=== PATIENT | male | born 1945 | race Caucasian/White ===

== ENCOUNTER → 2017-11-18 08:21 | Outpatient (CLI) | payer MEDICARE, OTHER, SELFPAY ==
[2017-11-18 09:00] LABS: Add Manual Diff / Slide Review NO; Eosinophils Percent Auto 3.9 % (2-4); Hematocrit 41.1 % (41-53); Hemoglobin 13.9 g/dL (13.5-17.5); Mean Corpuscular HGB Conc 33.8 % (30-36); Mean Corpuscular Hemoglobin 31.7 PG (26-34); Mean Corpuscular Volume 93.9 fL (80-100); Neutrophils Absolute Auto 2200 /uL (3000-5900); Neutrophils Percent Auto 58.1 % (50-75); Platelet Count 196 X10^3/uL (150-400); Red Blood Cell Count 4.37 X10^6/uL (4.5-5.9); Red Cell Distribution Width 13.6 % (11.6-14.8); White Blood Cell Count 3.8 X10^3/uL (4.5-11.0)
[2017-11-18 10:07] LABS: Creatinine Urine Random 128.8 mg/dL
[2017-11-18 10:12] LABS: Microalbumi Creatinin Ratio Ur 20.1 ug/mg CR (<30); Microalbumin Urine Random 2.6 mg/dL (0-1.6)
[2017-11-18 11:43] LABS: HEMOLYSIS < 15 (0-50)
[2017-11-18 11:48] LABS: Alanine Aminotransferase 31 IU/L (21-72); Albumin 4.4 g/dL (3.5-5.0); Albumin Globulin Ratio 1.5 (1.0-2.8); Alkaline Phosphatase 51 U/L (38-126); Aspartate Aminotransferase 34 IU/L (17-59); BUN Creatinine Ratio 23.8 (6-22); Bilirubin Total 0.8 mg/dL (0.2-1.3); Blood Urea Nitrogen 19 mg/dL (9-20); Calcium 9.3 mg/dL (8.4-10.2); Carbon Dioxide 28 mmol/L (22-32); Chloride 99 mmol/L (98-107); Estimated Glomerular Filt Rate > 60.0 mL/min (>60); Globulin 2.9 g/dL (1.7-4.1); Glucose 98 mg/dL (80-110); Potassium 4.2 mmol/L (3.4-5.1); Sodium 137 mmol/L (137-145); Total Protein 7.3 g/dL (6.3-8.2)
[2017-11-18 12:08] LABS: Cholesterol 239 mg/dL (140-199); HDL Cholesterol 56 mg/dL (40-60); LDL Cholesterol Calculated 165 mg/dL (<100); Triglycerides 89 mg/dL (35-150)
[2017-11-18 12:11] LABS: High Sensitivity CRP - Cardiac 0.2 mg/L (1.0-3.0)
[2017-11-18 12:18] LABS: Thyroid Stimulating Hormone 1.63 uIU/mL (0.47-4.68)
[2017-11-18 12:54] LABS: Free T4, Direct Thyroxine 1.02 ng/dL (0.78-2.19)
[2017-11-18 14:33] LABS: Prostate Specific Antigen Scrn 2.33 ng/mL (0.1-4.0)
[2017-11-21 15:04] LABS: Insulin Level Total 6.1 uIU/mL (2.0-19.6)
[2017-11-21 15:11] LABS: Thyroid Peroxidase Antibodies < 1 IU/mL (< 9)
[2017-11-22 19:41] LABS: Testosterone, Free 0.97 ng/dL
== END ==
PROVIDERS: PCP Naturopath; Visit Provider Naturopath
DX: E29.1 Testicular hypofunction (principal); L40.8 Other psoriasis; D72.818 Other decreased white blood cell count; R73.01 Impaired fasting glucose; I10 Essential (primary) hypertension; F33.2 Major depressive disorder, recurrent severe without psychotic features; M25.551 Pain in right hip; Z87.891 Personal history of nicotine dependence; Z12.5 Encounter for screening for malignant neoplasm of prostate
CPT/HCPCS: 36415; 80053; 80061; 82043; 82570; 83525; 84402; 84439; 84443; 85025; 86140; 86376; G0103

== ENCOUNTER → 2019-03-01 07:58 | Outpatient (CLI) | payer MEDICARE, OTHER, SELFPAY ==
[2019-03-01 09:10] LABS: B Type Natriuretic Peptide 158 (<100)
[2019-03-01 09:28] LABS: Prostate Specific Antigen 2.41 ng/mL (0.10-4.00)
[2019-03-01 09:37] LABS: Vitamin D 25 Hydroxy (D3) 64.4 ng/mL (30.0-100.0)
[2019-03-01 13:49] LABS: Add Manual Diff / Slide Review NO; Basophils Absolute Auto 0 /uL (0-100); Basophils Percent Auto 0.6 % (0-2); Eosinophils Absolute Auto 100 /uL (0-450); Eosinophils Percent Auto 2.8 % (2-4); Hematocrit 40.4 % (41-53); Hemoglobin 13.8 g/dL (13.5-17.5); Lymphocytes Absolute Auto 1500 /uL (1100-4500); Lymphocytes Percent Auto 35.4 % (25-40); Mean Corpuscular HGB Conc 34.1 % (30-36); Mean Corpuscular Hemoglobin 32.1 PG (26-34); Monocytes Absolute Auto 400 /uL (0-900); Monocytes Percent Auto 10.4 % (3-14); Neutrophils Absolute Auto 2200 /uL (1500-7000); Neutrophils Percent Auto 50.8 % (50-75); Platelet Count 210 X10^3/uL (150-400); Red Cell Distribution Width 13.8 % (11.6-14.8); White Blood Cell Count 4.3 X10^3/uL (4.5-11.0)
[2019-03-01 14:25] LABS: Ferritin 66.1 ng/mL (17.9-464)
[2019-03-05 15:01] LABS: Insulin Level Total 5.6 uIU/mL (2.0-19.6)
== END ==
PROVIDERS: PCP Naturopath; Visit Provider Naturopath
DX: I10 Essential (primary) hypertension (principal); R73.01 Impaired fasting glucose; L40.9 Psoriasis, unspecified
CPT/HCPCS: 36415; 82306; 82728; 83525; 83880; 84153; 85025

== ENCOUNTER → 2019-06-12 08:28 | Outpatient (CLI) | payer MEDICARE, OTHER, SELFPAY ==
[2019-06-14 03:10] LABS: COVID19 Sendout Not Detected (Not Detected)
== END ==
PROVIDERS: PCP Naturopath; Visit Provider Family Medicine
DX: Z03.818 Encounter for observation for suspected exposure to other biological agents ruled out (principal)
CPT/HCPCS: 87635

== ENCOUNTER → 2019-11-25 06:46 | Outpatient (CLI) | payer MEDICARE, OTHER, SELFPAY ==
[2019-11-25 08:08] LABS: Add Manual Diff / Slide Review NO; Basophils Absolute Auto 0 /uL (0-100); Basophils Percent Auto 0.5 % (0-2); Eosinophils Absolute Auto 100 /uL (0-450); Eosinophils Percent Auto 2.5 % (2-4); Hematocrit 38.8 % (41-53); Hemoglobin 13.1 g/dL (13.5-17.5); Lymphocytes Absolute Auto 1400 /uL (1100-4500); Lymphocytes Percent Auto 39.5 % (25-40); Mean Corpuscular HGB Conc 33.8 % (30-36); Mean Corpuscular Hemoglobin 32.2 PG (26-34); Mean Corpuscular Volume 95.1 fL (80-100); Monocytes Absolute Auto 400 /uL (0-900); Monocytes Percent Auto 11.1 % (3-14); Neutrophils Absolute Auto 1600 /uL (1500-7000); Neutrophils Percent Auto 46.4 % (50-75); Platelet Count 179 X10^3/uL (150-400); Red Blood Cell Count 4.08 X10^6/uL (4.5-5.9); Red Cell Distribution Width 14.6 % (11.6-14.8); White Blood Cell Count 3.5 X10^3/uL (4.5-11.0)
[2019-11-25 08:25] LABS: Alanine Aminotransferase 26 IU/L (<50); Albumin 4.1 g/dL (3.5-5.0); Albumin Globulin Ratio 1.4 (1.0-2.8); Alkaline Phosphatase 54 U/L (38-126); Aspartate Aminotransferase 29 IU/L (17-59); BUN Creatinine Ratio 18.6 (6-22); Bilirubin Total 0.8 mg/dL (0.2-1.3); Blood Urea Nitrogen 16 mg/dL (9-20); Calcium 9.1 mg/dL (8.4-10.2); Carbon Dioxide 32 mmol/L (22-32); Chloride 101 mmol/L (98-107); Cholesterol 209 mg/dL (140-199); Estimated Glomerular Filt Rate > 60.0 mL/min (>60); Globulin 2.9 g/dL (1.7-4.1); Glucose 97 mg/dL (80-110); HDL Cholesterol 54 mg/dL (40-60); HEMOLYSIS < 15 (0-50); LDL Cholesterol Calculated 138 mg/dL (<100); Potassium 3.9 mmol/L (3.4-5.1); Sodium 136 mmol/L (137-145); Triglycerides 84 mg/dL (35-150)
[2019-11-25 08:28] LABS: Hemoglobin A1C% w Est Avg Glu 5.5 % (4.0-6.0)
[2019-11-25 08:41] LABS: Vitamin D 25 Hydroxy (D3) 95.1 ng/mL (30.0-100.0)
== END ==
PROVIDERS: PCP Family Medicine; Referring Provider Family Medicine; Visit Provider Family Medicine
DX: Z13.1 Encounter for screening for diabetes mellitus (principal); E55.9 Vitamin D deficiency, unspecified; Z13.220 Encounter for screening for lipoid disorders; D50.9 Iron deficiency anemia, unspecified
CPT/HCPCS: 36415; 80053; 80061; 82306; 83036; 85025

== ENCOUNTER → 2019-12-10 09:07 | Outpatient (CLI) | payer MEDICARE, OTHER, SELFPAY ==
[2019-12-11 15:53] LABS: Fecal Immunochemical Test Negative (Negative)
== END ==
PROVIDERS: PCP Family Medicine; Referring Provider Family Medicine; Visit Provider Family Medicine
DX: D50.9 Iron deficiency anemia, unspecified (principal)
CPT/HCPCS: 82274

== ENCOUNTER → 2020-04-03 06:33 | Outpatient (CLI) | payer MEDICARE, OTHER, SELFPAY ==
[2020-04-03 07:32] LABS: Add Manual Diff / Slide Review NO; Basophils Absolute Auto 0 /uL (0-100); Basophils Percent Auto 0.8 % (0-2); Eosinophils Absolute Auto 100 /uL (0-450); Eosinophils Percent Auto 2.8 % (2-4); Hematocrit 40.4 % (41-53); Hemoglobin 13.4 g/dL (13.5-17.5); Lymphocytes Absolute Auto 1400 /uL (1100-4500); Lymphocytes Percent Auto 32.1 % (25-40); Mean Corpuscular HGB Conc 33.1 % (30-36); Mean Corpuscular Hemoglobin 31.4 PG (26-34); Mean Corpuscular Volume 94.7 fL (80-100); Monocytes Absolute Auto 500 /uL (0-900); Neutrophils Absolute Auto 2400 /uL (1500-7000); Neutrophils Percent Auto 52.3 % (50-75); Platelet Count 180 X10^3/uL (150-400); Red Blood Cell Count 4.27 X10^6/uL (4.5-5.9); Red Cell Distribution Width 13.7 % (11.6-14.8); White Blood Cell Count 4.5 X10^3/uL (4.5-11.0)
[2020-04-03 07:42] LABS: Cholesterol 247 mg/dL (140-199); HDL Cholesterol 62 mg/dL (40-60); LDL Cholesterol Calculated 165 mg/dL (<100); Triglycerides 100 mg/dL (35-150)
[2020-04-03 08:00] LABS: Vitamin D 25 Hydroxy (D3) 89.6 ng/mL (30.0-100.0)
== END ==
PROVIDERS: PCP Family Medicine; Referring Provider Family Medicine; Visit Provider Family Medicine
DX: E78.2 Mixed hyperlipidemia (principal); E55.9 Vitamin D deficiency, unspecified; D50.9 Iron deficiency anemia, unspecified
CPT/HCPCS: 36415; 80061; 82306; 85025

== ENCOUNTER → 2020-04-16 07:36 | Outpatient (CLI) | payer MEDICARE, OTHER, SELFPAY ==
[2020-04-16] MEDS: COVID-19 VACC, Ad26(JANSSEN)/PF 0.5 ML IM (07:50)
== END ==
PROVIDERS: PCP Family Medicine; Visit Provider Internal Medicine
DX: Z23 Encounter for immunization (principal)
CPT/HCPCS: 0031A; 91303

== ENCOUNTER → 2020-12-15 09:56 | Outpatient (CLI) | payer MEDICARE, OTHER, SELFPAY ==
[2020-12-15 10:54] LABS: Cholesterol 227 mg/dL (140-199); HDL Cholesterol 67 mg/dL (40-60); LDL Cholesterol Calculated 139 mg/dL (<100); Triglycerides 106 mg/dL (35-150)
[2020-12-15 11:21] LABS: Prostate Specific Antigen Scrn 3.13 ng/mL (0.1-4.0)
== END ==
PROVIDERS: PCP Family Medicine; Referring Provider Family Medicine; Visit Provider Family Medicine
DX: E78.2 Mixed hyperlipidemia (principal); Z12.5 Encounter for screening for malignant neoplasm of prostate; E55.9 Vitamin D deficiency, unspecified
CPT/HCPCS: 36415; 80061; G0103

== ENCOUNTER → 2021-09-14 10:07 | Outpatient (CLI) | payer MEDICARE, OTHER, SELFPAY ==
[2021-09-14 10:48] LABS: Add Manual Diff / Slide Review NO; Basophils Absolute Auto 0 /uL (0-100); Basophils Percent Auto 0.8 % (0-2); Eosinophils Absolute Auto 100 /uL (0-450); Eosinophils Percent Auto 1.6 % (2-4); Hematocrit 32.5 % (41-53); Hemoglobin 11.3 g/dL (13.5-17.5); Lymphocytes Absolute Auto 1000 /uL (1100-4500); Lymphocytes Percent Auto 21.3 % (25-40); Mean Corpuscular HGB Conc 34.8 % (30-36); Mean Corpuscular Hemoglobin 32.5 PG (26-34); Mean Corpuscular Volume 93.3 fL (80-100); Monocytes Absolute Auto 500 /uL (0-900); Neutrophils Absolute Auto 3200 /uL (1500-7000); Neutrophils Percent Auto 66.3 % (50-75); Platelet Count 210 X10^3/uL (150-400); Red Blood Cell Count 3.49 X10^6/uL (4.5-5.9); Red Cell Distribution Width 14.3 % (11.6-14.8); White Blood Cell Count 4.8 X10^3/uL (4.5-11.0)
[2021-09-14 11:05] LABS: Alanine Aminotransferase 27 IU/L (<50); Albumin 4.1 g/dL (3.5-5.0); Albumin Globulin Ratio 1.4 (1.0-2.8); Alkaline Phosphatase 55 U/L (38-126); Aspartate Aminotransferase 27 IU/L (17-59); BUN Creatinine Ratio 15.1 (6-22); Bilirubin Total 0.6 mg/dL (0.2-1.3); Blood Urea Nitrogen 14 mg/dL (9-20); Calcium 8.8 mg/dL (8.4-10.2); Carbon Dioxide 34 mmol/L (22-32); Chloride 102 mmol/L (98-107); Estimated Glomerular Filt Rate > 60 mL/min (>60); Globulin 2.9 g/dL (1.7-4.1); Glucose 112 mg/dL (80-110); HEMOLYSIS < 15 (0-50); Lipase 197 U/L (23-300); Potassium 4.4 mmol/L (3.4-5.1); Sodium 136 mmol/L (137-145)
[2021-09-15 15:36] LABS: Interpretation Negative (Negative)
== END ==
PROVIDERS: PCP Family Medicine; Referring Provider Nurse Practitioner Critical Care Medicine; Visit Provider Nurse Practitioner Critical Care Medicine
DX: R10.13 Epigastric pain (principal)
CPT/HCPCS: 36415; 80053; 83013; 83690; 85025

== ENCOUNTER → 2021-10-06 09:05 | Outpatient (CLI) | payer MEDICARE, OTHER, SELFPAY ==
[2021-10-06 11:31] LABS: COVID19 -Nasal RAPID Negative (Negative)
== END ==
PROVIDERS: PCP Family Medicine; Visit Provider Surgery
DX: Z01.812 Encounter for preprocedural laboratory examination (principal); Z20.822 Contact with and (suspected) exposure to COVID-19
CPT/HCPCS: 87635; C9803

== ENCOUNTER 2021-10-07 11:45 | Day surgery (SDC) | payer MEDICARE, OTHER, SELFPAY ==
--- NOTE | 2021-10-07 | PATH_ITS ---
[facility] Accession Number: [id number] . 01 Material submitted: . gastrointestinal site - STOMACH BIOPSY . 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 Present in a background of ulcer. Equivocal for HER2 overexpression by immunohistochemistry. Please see comment. MRV 10/15/2021 1638 Local . 01 Comment: HER2 FISH will be performed and the results reported as an addendum. As part of routine quality system manager, Dr. White also reviewed this case and agrees with the diagnosis. Dr. Cheung gave preliminary results to Luma in Dr. Vasques's office on 10/14/2021. . 01 Electronically signed: . Leslie Cheung MD, Pathologist NPI- [id number] . 01 Gross description: . STOMACH BIOPSY: Received in formalin are multiple fragment(s) of albrecht, soft tissue measuring 1.2 x 0.5 x 0.1 cm in aggregate submitted entirely in 1 cassette(s) /CPE 10/08/2021 0822 Local . 01 Microscopic: . Immunohistochemical stains were performed to characterize cells of interest. All control stains showed appropriate reactivity. . RESULTS: MARKEL: Positive. CD68: Negative. HER2 (4B5): Equivocal (Score 2+). . COMMENT: Testing performed on Block Number: A1 The criteria used is based on the ToGA Trial 6 for Scoring HER2 Expression by Immunohistochemistry (IHC) in Gastric and Esophagogastric Junction Adenocarcinoma. . *This test was developed and its performance characteristics determined by [employer]. It has not been cleared or approved by the U.[place]. Food and Drug Administration. The FDA has determined that such clearance or approval is not necessary. This test is used for clinical purposes. It should not be regarded as investigational or for research. . 01 Pathologist provided ICD-10: K30, D64.9, C16.9 . 01 CPT . 770659, U60169, U31624, 197343 Specimen Comment: A courtesy copy of this report has been sent to [phone] Performed at: 01 [facility] [address] [place] [address], [place], [place] [id number] MD Brice Buck MD Phone: [phone]
[2021-10-07 12:07] VITALS: BP 138/85; PULSE 62; RESP 16; TEMP 36.9; O2SAT 100; BMI 24.5
[2021-10-07] MEDS: LACTATED RINGERS 1,000 ML 42 ML IV (12:29)
--- NOTE | 2021-10-07 13:26 | PM.PREOP ---
Pre-operative Note COVID-19 COVID-19 status: Negative Result date/Date tested (Pos, Neg/Pending): 10/06/21 Interval Note History & Physical reviewed/Exam performed by Physician: Yes Changes to H&P: No ASA Class (for procedural sedation): II
[2021-10-07] MEDS: LIDOCAINE 4% SOLN 50 ML 20 ML TOP (14:07)
[2021-10-07] MEDS: MIDAZOLAM 5 MG/5 ML VIAL 6 MG IV (14:24)
[2021-10-07] MEDS: fentaNYL 100 MCG/2 ML INJ 150 MCG IV (14:24)
--- NOTE | 2021-10-07 14:44 | PM.OP.EC ---
Operative Date/Time/Diagnoses Date of procedure: 10/07/21 Time of procedure: 14:44 Pre-op diagnosis: Dyspepsia and anemia Post-op diagnosis: same Procedure & Clinicians Study performed: EGD and colonoscopy Same procedure as scheduled: Yes Surgeon: Carlitos Vasques Procedure Notes Procedure in detail: Surgeon: Carlitos Vasques MD Procedure in detail: A timeout was performed. A bite blocked was placed and monitors were attached to the patient. The patient was positioned in a left lateral decubitus position. Sedation was administered with Versed and fentanyl. Once the patient was sedated the endoscope was inserted through the bite block and passed through the esophagus and stomach and into the duodenum. The duodenum was normal. The stomach contained significant quantities of old blood as well as bright red blood. The majority of stomach was circumferentially thickened and inflamed from the fundus to the incisura. There was no obvious ulcer. Multiple random biopsies were taken from the abnormal appearing gastric mucosa. The endoscope was retroflexed and no hiatal hernia was noted. The endoscope was straightned and withdrawn into the esophagus. Findings: Thickened inflamed and bleeding gastric mucosa involving the majority of the body of the stomach Next we repositioned the patient for a colonoscopy. A digital rectal exam was performed and was normal. The colonoscope was inserted and advanced to the cecum. There was significant black old blood throughout the colon. The appendiceal orifice was difficult to visualize due to the thick layer of old blood but the terminal ileum was able to be intubated and more old blood was visualized. A photograph was taken. The scope was then slowly withdrawn over greater than 6 minutes and no lesions were noted although the visualization was suboptimal due to the thick layer of old blood throughout colon. The scope was retroflexed in the rectum and no abnormality was noted other than internal hemorrhoids Findings: No abnormalities but visualization was impaired by old blood throughout the colon EBL: 15 mL Scope withdrawal time: 6 Sedation minutes: 34 Post-procedure Disposition: PACU
[2021-10-07 14:46] VITALS: BP 121/77; PULSE 69; RESP 15; TEMP 36.6; O2SAT 99
[2021-10-07 14:51] VITALS: BP 125/73; PULSE 66; RESP 10; O2SAT 99
[2021-10-07 14:56] VITALS: BP 129/76; PULSE 65; RESP 11; O2SAT 98
[2021-10-07 15:37] VITALS: BP 127/70; PULSE 61; RESP 14; TEMP 36.6; O2SAT 99
--- NOTE | 2021-10-07 15:39 | SUR.PHASEII ---
Lab drawn, awaiting Dr. Vasques. updated.
[2021-10-07 16:13] LABS: Add Manual Diff / Slide Review NO; Basophils Absolute Auto 0 /uL (0-100); Basophils Percent Auto 1.2 % (0-2); Eosinophils Absolute Auto 100 /uL (0-450); Eosinophils Percent Auto 1.8 % (2-4); Hematocrit 26.1 % (41-53); Hemoglobin 8.8 g/dL (13.5-17.5); Lymphocytes Absolute Auto 1100 /uL (1100-4500); Lymphocytes Percent Auto 26.3 % (25-40); Mean Corpuscular HGB Conc 33.7 % (30-36); Mean Corpuscular Hemoglobin 31.6 PG (26-34); Monocytes Absolute Auto 500 /uL (0-900); Monocytes Percent Auto 11.7 % (3-14); Neutrophils Absolute Auto 2400 /uL (1500-7000); Platelet Count 269 X10^3/uL (150-400); Red Blood Cell Count 2.78 X10^6/uL (4.5-5.9); Red Cell Distribution Width 13.9 % (11.6-14.8); White Blood Cell Count 4.1 X10^3/uL (4.5-11.0)
--- NOTE | 2021-10-07 16:53 | SUR.PHASEII ---
Lab reported to Dr. Vasques. Pt to be discharged.
[2021-10-07 17:05] VITALS: BP 147/79; PULSE 66; RESP 16; TEMP 36.7; O2SAT 99
--- NOTE | 2021-10-07 17:21 | SUR.PHASEII ---
Pt left unit in stable condition, d/c instruction discussed at car with present. Both voiced an understanding.
== END 2021-10-07 17:18 | disposition home or self-care (01) ==
PROVIDERS: PCP Family Medicine; Referring Provider Surgery; Visit Provider Surgery
PROC: 0DJ08ZZ Inspection of Upper Intestinal Tract, Via Natural or Artificial Opening Endoscopic (ICD-10-PCS; CPT 43235; principal; 2021-10-07 13:00)
PROC: 0DJD8ZZ Inspection of Lower Intestinal Tract, Via Natural or Artificial Opening Endoscopic (ICD-10-PCS; CPT 45378; 2021-10-07 13:00)
DX: C16.9 Malignant neoplasm of stomach, unspecified; D50.9 Iron deficiency anemia, unspecified; Z87.891 Personal history of nicotine dependence
CPT/HCPCS: 43239; 45378; 36415; 85025; 99152; 99153; J2250; J3010

== ENCOUNTER → 2021-10-14 12:48 | Outpatient (CLI) | payer MEDICARE, OTHER, SELFPAY ==
[2021-10-14 13:14] LABS: Add Manual Diff / Slide Review NO; Basophils Absolute Auto 100 /uL (0-100); Basophils Percent Auto 0.7 % (0-2); Eosinophils Absolute Auto 100 /uL (0-450); Eosinophils Percent Auto 1.6 % (2-4); Hematocrit 27.5 % (41-53); Hemoglobin 9.3 g/dL (13.5-17.5); Lymphocytes Absolute Auto 1200 /uL (1100-4500); Lymphocytes Percent Auto 16.6 % (25-40); Mean Corpuscular HGB Conc 33.9 % (30-36); Mean Corpuscular Hemoglobin 31.7 PG (26-34); Mean Corpuscular Volume 93.6 fL (80-100); Monocytes Absolute Auto 900 /uL (0-900); Monocytes Percent Auto 11.8 % (3-14); Neutrophils Absolute Auto 5000 /uL (1500-7000); Neutrophils Percent Auto 69.3 % (50-75); Platelet Count 306 X10^3/uL (150-400); Red Blood Cell Count 2.94 X10^6/uL (4.5-5.9); Red Cell Distribution Width 14.5 % (11.6-14.8); White Blood Cell Count 7.3 X10^3/uL (4.5-11.0)
[2021-10-14 13:30] LABS: Cholesterol 173 mg/dL (140-199); HDL Cholesterol 45 mg/dL (40-60); LDL Cholesterol Calculated 105 mg/dL (<100); Triglycerides 113 mg/dL (35-150)
== END ==
PROVIDERS: PCP Family Medicine; Referring Provider Surgery; Visit Provider Surgery
DX: D50.9 Iron deficiency anemia, unspecified (principal); E78.2 Mixed hyperlipidemia
CPT/HCPCS: 36415; 80061; 85025

== ENCOUNTER → 2021-10-19 11:07 | Outpatient (CLI) | payer MEDICARE, OTHER, SELFPAY ==
[2021-10-19 11:58] LABS: Add Manual Diff / Slide Review NO; Basophils Absolute Auto 100 /uL (0-100); Eosinophils Absolute Auto 100 /uL (0-450); Eosinophils Percent Auto 2.4 % (2-4); Hematocrit 26.2 % (41-53); Hemoglobin 8.8 g/dL (13.5-17.5); Lymphocytes Absolute Auto 800 /uL (1100-4500); Mean Corpuscular HGB Conc 33.5 % (30-36); Mean Corpuscular Hemoglobin 31.3 PG (26-34); Mean Corpuscular Volume 93.5 fL (80-100); Monocytes Absolute Auto 700 /uL (0-900); Monocytes Percent Auto 13.3 % (3-14); Neutrophils Absolute Auto 3700 /uL (1500-7000); Neutrophils Percent Auto 68.3 % (50-75); Platelet Count 267 X10^3/uL (150-400); Red Blood Cell Count 2.81 X10^6/uL (4.5-5.9); Red Cell Distribution Width 14.9 % (11.6-14.8); White Blood Cell Count 5.5 X10^3/uL (4.5-11.0)
[2021-10-19 12:33] LABS: Alanine Aminotransferase 193 IU/L (<50); Albumin 3.7 g/dL (3.5-5.0); Albumin Globulin Ratio 1.3 (1.0-2.8); Alkaline Phosphatase 541 U/L (38-126); Aspartate Aminotransferase 98 IU/L (17-59); BUN Creatinine Ratio 19.8 (6-22); Bilirubin Total 0.5 mg/dL (0.2-1.3); Blood Urea Nitrogen 18 mg/dL (9-20); Carbon Dioxide 28 mmol/L (22-32); Chloride 98 mmol/L (98-107); Estimated Glomerular Filt Rate > 60 mL/min (>60); Globulin 2.8 g/dL (1.7-4.1); Glucose 135 mg/dL (80-110); HEMOLYSIS < 15 (0-50); Sodium 138 mmol/L (137-145); Total Protein 6.5 g/dL (6.3-8.2)
[2021-10-19 12:57] LABS: Cancer Antigen 125 30.9 U/mL; Carcinoembryonic Antigen 1.2 ng/mL (0.1-3.0)
[2021-10-20 06:18] LABS: Cancer (Carbohydrate) Ag 19-9 69 U/mL (0-35)
== END ==
PROVIDERS: PCP Family Medicine; Referring Provider Surgery; Visit Provider Surgery
DX: C16.9 Malignant neoplasm of stomach, unspecified (principal)
CPT/HCPCS: 36415; 80053; 82378; 85025; 86301; 86304

== ENCOUNTER → 2021-10-21 10:48 | Outpatient (CLI) | payer MEDICARE, OTHER, SELFPAY ==
--- NOTE | 2021-10-21 10:49 | DI.CT.S_ITS ---
PROCEDURE: CT CHEST ABD PEL W CON INDICATIONS: Signet ring carcinoma of the stomach TECHNIQUE: After the administration of oral and intravenous contrast, axial sections acquired from the supraclavicular neck to the pubic symphysis. Coronal and sagittal reformats were performed. For radiation dose reduction, the following was used: automated exposure control, adjustment of mA and/or kV according to patient size. COMPARISON:None. FINDINGS: Image quality: Excellent. CHEST: Lower Neck: No enlarged lymph nodes. Thyroid: Within normal limits Axillae: No enlarged lymph nodes. Chest Wall: Unremarkable. Lungs and Airways: Trace emphysema. Scattered scarring. Left greater right lower lobe ground-glass opacities with areas of cavitation . There are also small solitary micro nodules, for example at the right apex image 6/43. Calcified granulomas are also present. Pleura: No pneumothorax or pleural effusions. Heart: Heart size is within normal limits. Thoracic Vessels: No aneurysm Mediastinum and Arlene: No adenopathy by size criteria. Esophagus: Filled with ingested contrast and dilated. ABDOMEN: Liver: Unremarkable. Gallbladder: Unremarkable Biliary ducts: Marked biliary ductal dilation with likely obstruction near the ampulla . There is also an adjacent large duodenal diverticulum. Pancreas: The pancreatic duct is not dilated, however there is peripancreatic fat stranding. Spleen: Unremarkable. Adrenal Glands: Unremarkable. Kidneys and Ureters: Unremarkable. Stomach and Bowel: Diffuse gastric wall thickening with narrowing at the antrum. There is dilation of the proximal duodenum with stasis of material. Wall thickening of the horizontal duodenum with normal caliber jejunum. Colonic diverticula . There is serosal disease and implants suspected along the transverse mesocolon and hepatic flexure of the colon. Peritoneum: Small amount of pelvic free fluid omental studding, particularly in the left upper quadrant greater omentum. Suspected serosal disease along the colonic surface. There is also suspected studding along the lesser sac and lesser omentum. Ventral Wall: No hernia. Abdominal Nodes: No retroperitoneal adenopathy by size criteria. Peritoneal disease as above. Vessels: The portal vein is patent, but displaced and narrowed near the portal confluence. [id number] atherosclerotic calcifications. No aneurysm. PELVIS: Pelvic Organs: Heterogeneous prostate with calcifications not well evaluated. Bladder: Left bladder wall diverticulum and moderate diffuse wall thickening, indeterminate on CT. Pelvic Nodes: No enlarged lymph nodes. Miscellaneous: Left fat containing inguinal hernia Bones: No acute or suspicious osseous abnormality. IMPRESSION: CT findings suspicious for multifocal, diffuse infiltrating adenocarcinoma of the stomach and duodenum. There is evidence of early peritoneal dissemination. Cavitating lung nodules in a pattern that favors infection/inflammation, possibly related to aspiration of enteric contents from the dilated esophagus secondary to gastric outlet obstruction. Marked biliary dilation likely secondary to infiltrating ampullary obstruction. There is also an adjacent large duodenal diverticulum, perforation is considered less likely. Consider follow-up imaging for chest findings. PET-CT could also be obtained for more complete staging. Additional incidental findings above. Dictated by: Eduardo Meyer M.D. on 10/21/2021 at 14:16 Approved by: Eduardo Meyer M.D. on 10/21/2021 at 14:30
== END ==
PROVIDERS: PCP Family Medicine; Referring Provider Surgery; Visit Provider Surgery
DX: C16.9 Malignant neoplasm of stomach, unspecified (principal); R91.8 Other nonspecific abnormal finding of lung field; K57.10 Diverticulosis of small intestine without perforation or abscess without bleeding
CPT/HCPCS: 71260; 74177; Q9967

== ENCOUNTER 2021-10-27 18:46 | Emergency (ER) | payer MEDICARE, OTHER, SELFPAY ==
[2021-10-27] VITALS (11 sets, daily range): BP systolic 90–113; BP diastolic 50–62; PULSE 85–122; RESP 12–22; TEMP 37.2–39.3; O2SAT 95–98; BMI 22.3
--- NOTE | 2021-10-27 19:14 | ED_ITS ---
HPI - GI Bleed <Mami Medina DO - Last Filed: 10/29/21 01:52> General Chief complaint: GI Bleed Stated complaint: states dehydrated Time Seen by Provider: 10/27/21 19:11 Source: patient Mode of arrival: Wheelchair History of Present Illness HPI Narrative: Patient is a 76-year-old male history of iron deficiency anemia recent diagnosis of signet ring carcinoma ongoing upper GI bleeding. Although he just started vomiting some coffee-ground like emesis a few days ago. Previously he was only belching. He had an endoscopy 3 weeks ago with a diagnosis was made he had a PET scan today. He presents today with coffee-ground like emesis along with fever and chills. Found to be febrile today of 102. He has no abdominal pain, mild nausea no chest pain no shortness of breath no painful or frequent urination. No headache. He overall feels extremely fatigued and weak. Related Data Previous Rx's Medication Instructions Recorded omeprazole 20 mg tablet,delayed 20 mg PO DAILY #30 tabs 09/14/21 release Allergies Allergy/AdvReac Type Severity Reaction Status Date / Time No Known Drug Allergies Allergy Verified 10/27/21 18:49 Review of Systems <Mami Median DO - Last Filed: 10/29/21 01:52> Review of Systems Narrative: GENERAL: See HPI HEENT: Denies sinus pain, ear pain, sore throat, difficulty swallowing, neck pain RESPIRATORY: Denies dyspnea, cough, wheezing, hemoptysis, sputum. CARDIOVASCULAR: Denies chest pain, palpitations, orthopnea, edema GASTROINTESTINAL: See HPI : Denies dysuria, frequency, incontinence, hematuria, urinary retention, flank pain. MUSCULOSKELETAL: Denies weakness, joint pain, or bony pain SKIN: No rash, no erythema, no pruritus NEUROLOGIC: Denies weakness, dizziness, headache, numbness, change in speech, confusion PSYCHIATRIC: No concerning psychosocial issues. 12 point review of systems is negative except for those stated above and HPI Patient History <Mami Medina DO - Last Filed: 10/29/21 01:52> Medical History (Updated 10/29/21 @ 00:40 by Mami Medina DO) Chicken pox Chronic back pain Depression Eczema Hearing loss Hyperlipidemia Iron (Fe) deficiency anemia Low testosterone Measles Mumps Shoulder pain Vitamin D deficiency Surgical History Anesthesia History of cataract removal with insertion of prosthetic lens (~09/2019) Undescended right testicle (~1959) [place] teeth extracted (~1979) Family History Father Hypertension Grandfather History of heart disease Grandmother Flu Social History household members: spouse Smoking Status: Former smoker alcohol intake: never Smoking Status: Former smoker Substance Use Type: does not use Exam <Mami Medina DO - Last Filed: 10/29/21 01:52> Initial Vital Signs Initial Vital Signs: Vital Signs Temperature 102.8 F H 10/27/21 18:49 Pulse Rate 122 H 10/27/21 18:49 Respiratory Rate 15 10/27/21 18:49 Blood Pressure 108/62 10/27/21 18:49 Pulse Oximetry 96 10/27/21 18:49 Oxygen Delivery Method 10/27/21 18:49 GENERAL: Alert very pleasant 76-year-old male slightly pale thin and in no acute distress. HEENT: Head atraumatic,EOMI, pupils reactive, face symmetric, moist mucous membranes CARDIOVASCULAR: Regular rate and rhythm without murmurs, rubs or gallops. RESPIRATORY: Breath sounds equal bilaterally, no wheezes rales or rhonchi. ABDOMEN: Soft, nontender. Normoactive bowel sounds all 4 quadrants. No guarding or rebound. EXTREMITIES: Normal range of motion, no clubbing or edema. Neurovascularly intact NEUROLOGICAL: Alert and oriented x4. SKIN: Warm, dry, no laceration, no petechiae, no rashes or lesions. <Dane Finn MD - Last Filed: 10/29/21 07:02> Initial Vital Signs Initial Vital Signs: Vital Signs Temperature 102.8 F H 10/27/21 18:49 Pulse Rate 122 H 10/27/21 18:49 Respiratory Rate 15 10/27/21 18:49 Blood Pressure 108/62 10/27/21 18:49 Pulse Oximetry 96 10/27/21 18:49 Oxygen Delivery Method 10/27/21 18:49 Course <DO Fer Narayan Last Filed: 10/29/21 01:52> Orders Ordered: ED Orders 09/23/22 05:14 CBC Auto Diff [Complete Blood Count AUTO DIFF] Stat CMP [Comprehensive Metabolic Panel] Stat Discontinued Medications Famotidine (Famotidine 20 Mg/2 Ml Vial) 20 mg IV NOW [facility] Last Admin: 10/28/21 12:49 Dose: 20 mg Documented By: YOHAN Sodium Chloride (Normal Saline 0.9%) 1,000 mls @ 1,000 mls/hr IV BOLUS ONE Stop: 10/27/21 20:24 Last Infusion: 10/27/21 20:30 Dose: 0 mls/hr Documented By: Admin: 10/27/21 19:33 Dose: 1,000 mls/hr Documented By: NOEMY Piperacillin Sod/Tazobactam (Sod 4.5 gm/ Sodium Chloride) 100 mls @ 200 mls/hr IV NOW ONE Stop: 10/27/21 20:00 Last Infusion: 10/27/21 20:40 Dose: 0 mls/hr Documented By: Admin: 10/27/21 20:10 Dose: 200 mls/hr Documented By: DELMA Sodium Chloride (Normal Saline 0.9%) 2,177.25 mls @ 725.75 mls/hr 30 ml/kg inf use over 3 hr (2177.25 ml) IV NOW ONE Stop: 10/27/21 23:38 Last Infusion: 10/27/21 23:13 Dose: 0 mls/hr Documented By: Admin: 10/27/21 20:44 Dose: 725.75 mls/hr Documented By: DELMA Levofloxacin (Levaquin) 500 mg in 100 mls @ 100 mls/hr IV Q24H [facility] Last Infusion: 10/28/21 10:43 Dose: 0 mls/hr Documented By: Admin: 10/28/21 09:39 Dose: 100 mls/hr Documented By: RB Levofloxacin (Levaquin) 500 mg in 100 mls @ 100 mls/hr IV Q24H [facility] Dextrose/Sodium Chloride (Dextrose 5%-0.9% Ns) 1,000 mls @ 84 mls/hr IV CONT [facility] Last Admin: 10/28/21 17:38 Dose: 84 mls/hr Documented By: ABELINO Ondansetron HCl (Ondansetron 4 Mg/2 Ml Inj) 4 mg IV NOW ONE Stop: 10/27/21 20:40 Last Admin: 10/27/21 20:42 Dose: 4 mg Documented By: DELMA Pantoprazole Sodium (Pantoprazole 40 Mg Vial) 40 mg IV NOW ONE Stop: 10/27/21 19:26 Last Admin: 10/27/21 19:34 Dose: 40 mg Documented By: NOEMY Vital Signs Vital signs: Vital Signs - 8 hr 10/29/21 01:37 Temperature 98.5 F Pulse Rate 70 Respiratory Rate 16 Blood Pressure 159/80 H Pulse Oximetry 95 Oxygen Delivery Method Room Air <Dane Finn MD - Last Filed: 10/29/21 07:02> Course Course Narrative: October 28, 2021 at 7:00 a.[address].. Sign out from Dr Medina, patient has been accepted to [facility] however awaiting for bed assignment. Patient may need embolization at their facility. Patient has fever unknown origin at this time. Imaging has been reassuring patient did improve with blood transfusion with blood pressure. 8:29 a.m.. Blood cultures returned and positive for Klebsiella pneumonia. Spoke with Artemio, pharmacy, at this time appropriate for [facility]. EKG reviewed. No QT prolongation October 28, 2021 at 6:00 p.m.. Sign out back to Dr Medina, still awaiting bed assignment with [facility] for continuity of care, Zee gray may have bed available after 7:00 p.m. Orders Ordered: ED Orders 10/29/21 05:14 CBC Auto Diff [Complete Blood Count AUTO DIFF] Stat CMP [Comprehensive Metabolic Panel] Stat Discontinued Medications Famotidine (Famotidine 20 Mg/2 Ml Vial) 20 mg IV NOW [facility] Last Admin: 10/28/21 12:49 Dose: 20 mg Documented By: YOHAN Sodium Chloride (Normal Saline 0.9%) 1,000 mls @ 1,000 mls/hr IV BOLUS ONE Stop: 10/27/21 20:24 Last Infusion: 10/27/21 20:30 Dose: 0 mls/hr Documented By: Admin: 10/27/21 19:33 Dose: 1,000 mls/hr Documented By: NOEMY Piperacillin Sod/Tazobactam (Sod 4.5 gm/ Sodium Chloride) 100 mls @ 200 mls/hr IV NOW ONE Stop: 10/27/21 20:00 Last Infusion: 10/27/21 20:40 Dose: 0 mls/hr Documented By: Admin: 10/27/21 20:10 Dose: 200 mls/hr Documented By: OW Sodium Chloride (Normal Saline 0.9%) 2,177.25 mls @ 725.75 mls/hr 30 ml/kg infuse over 3 hr (2177.25 ml) IV NOW ONE Stop: 10/27/21 23:38 Last Infusion: 10/27/21 23:13 Dose: 0 mls/hr Documented By: Admin: 10/27/21 20:44 Dose: 725.75 mls/hr Documented By: OW Levofloxacin (Levaquin) 500 mg in 100 mls @ 100 mls/hr IV Q24H [facility] Last Infusion: 10/28/21 10:43 Dose: 0 mls/hr Documented By: Admin: 10/28/21 09:39 Dose: 100 mls/hr Documented By: RB Levofloxacin (Levaquin) 500 mg in 100 mls @ 100 mls/hr IV Q24H [facility] Dextrose/Sodium Chloride (Dextrose 5%-0.9% Ns) 1,000 mls @ 84 mls/hr IV CONT [facility] Last Admin: 10/28/21 17:38 Dose: 84 mls/hr Documented By: ABELINO Ondansetron HCl (Ondansetron 4 Mg/2 Ml Inj) 4 mg IV NOW ONE Stop: 10/27/21 20:40 Last Admin: 10/27/21 20:42 Dose: 4 mg Documented By: DELMA Pantoprazole Sodium (Pantoprazole 40 Mg Vial) 40 mg IV NOW ONE Stop: 10/27/21 19:26 Last Admin: 10/27/21 19:34 Dose: 40 mg Documented By: NOEMY Reevaluation(s) Reevaluation #1: Spoke with patient and . They understand and do agree for continued waiting for bed available at [facility]. Updated results of blood culture. Possible respiratory or urine source of Klebsiella. Time: 17:11 Consultations Consultation #1: Spoke with general surgeon, Dr. Alejo here, keep patient NPO. Agrees with D5 normal saline maintenance at 75-100 mL/hour., October 28, 2021 at 5:36 p.m. Time: 17:36 Vital Signs Vital signs: Vital Signs - 8 hr 10/29/21 01:37 Temperature 98.5 F Pulse Rate 70 Respiratory Rate 16 Blood Pressure 159/80 H Pulse Oximetry 95 Oxygen Delivery Method Room Air MDM - GI Bleed <Mami Carol, DO - Last Filed: 10/29/21 01:52> Lab Data Result diagrams: 10/28/21 20:03 10/28/21 07:38 Labs: Lab Results 10/27/21 10/27/21 10/27/21 Range/Units 18:59 18:59 18:59 WBC 10.1 (4.5-11.0) X10^3/uL RBC 2.62 L (4.5-5.9) X10^6/uL Hgb 8.2 L (13.5-17.5) g/dL Hct 23.8 L (41-53) % MCV 90.9 (80-100) fL MCH 31.5 (26-34) PG MCHC 34.7 (30-36) % RDW 14.6 (11.6-14.8) % Plt Count 325 (150-400) X10^3/uL Neut % (Auto) 86.2 H (50-75) % Lymph % (Auto) 3.3 L (25-40) % Stark % (Auto) 9.3 (3-14) % Eos % (Auto) 0.2 L (2-4) % Baso % (Auto) 1.0 (0-2) % Neut # (Auto) 8700 H (2117-3255) /uL Lymph # (Auto) 300 L (1674-8612) /uL Stark # (Auto) 900 (0-900) /uL Eos # (Auto) 0 (0-450) /uL Baso # (Auto) 100 (0-100) /uL PT 13.8 H (10.1-12.7) SECONDS INR 1.2 (0.9-1.3) APTT 27 (26-36) SECONDS Sodium 131 L (137-145) mmol/L Potassium 3.9 (3.4-5.1) mmol/L Chloride 94 L (98-107) mmol/L Carbon Dioxide 25 (22-32) mmol/L BUN 29 H (9-20) mg/dL Creatinine 1.03 (0.66-1.25) mg/dL Estimated GFR > 60 (>60) mL/min BUN/Creatinine Ratio 28.2 H (6-22) Glucose 139 H (80-110) mg/dL Lactate (0.7-2.1) mmol/L Calcium 9.0 (8.4-10.2) mg/dL Total Bilirubin 0.9 (0.2-1.3) mg/dL AST 91 H (17-59) IU/L ALT 144 H (<50) IU/L Alkaline Phosphatase 657 H (38-126) U/L Total Creatine Kinase (55-170) U/L CK-MB (CK-2) CK-MB (CK-2) Rel Index Troponin I (0.01-0.034) ng/mL Total Protein 7.3 (6.3-8.2) g/dL Albumin 3.9 (3.5-5.0) g/dL Globulin 3.4 (1.7-4.1) g/dL Albumin/Globulin Ratio 1.1 (1.0-2.8) Procalcitonin (<0.5) ng/mL Urine Color Urine Appearance Urine pH (4.5-8.0) Ur Specific [place] (1.000-1.035) Urine Protein (Negative) Urine Glucose (UA) (Negative) g/dL Urine Ketones (NEGATIVE) Urine Occult Blood (Negative) Urine Nitrate (Negative) Urine Bilirubin (NEGATIVE) Ur Bilirubin Confirm (Negative) Urine Urobilinogen (0.2) E.U./dL Ur Leukocyte Esterase (NEGATIVE) Urine RBC (0-5/HPF) Urine WBC (0-5/HPF) Amorphous Sediment Urine Bacteria (None) Hyaline Casts (None) Urine Mucus (Negative) Ur Culture Indicated? A. baumannii (PCR) (Not Detect) Chlamy pneumoniae PCR (Not Detect) Adenovirus (PCR) (Not Detect) B. pertussis DNA (PCR) (Not Detecte) B.parapertussis DNA PCR (Not Detecte) Brenda albicans (PCR) (Not Detect) C. glabrata (PCR) (Not Detect) C. krusei (PCR) (Not Detect) C. parapsilosis (PCR) (Not Detect) C. tropicalis (PCR) (Not Detect) Coronavirus OC43 (PCR) (Not Detect) Coronavirus HKU1 (PCR) (Not Detect) Coronavirus 229E (PCR) (Not Detect) SARS-CoV-2 (PCR) (Not Detecte) Coronavirus NL63 (PCR) (Not Detect) Enterobacteriac sp PCR (Not Detect) E. cloacae complex PCR (Not Detect) Enterococcus sp PCR (Not Detect) E. coli (PCR) (Not Detect) H. influenzae (PCR) (Not Detect) Human Metapneumovir PCR (Not Detect) Influenza Type A (PCR) (Not Detect) Influenza Type B (PCR) (Not Detect) Klebsiella oxytoca PCR (Not Detect) Klebsiella pneumoniae (Not Detect) List. monocytogenes PCR (Not Detect) M. pneumoniae (PCR) (Not Detect) N. meningitidis (PCR) (Not Detect) Parainfluenza 1 (PCR) (Not Detect) Parainfluenza 2 (PCR) (Not Detect) Parainfluenza 3 (PCR) (Not Detect) Parainfluenza 4 (PCR) (Not Detect) Proteus species (PCR) (Not Detect) RSV (PCR) (Not Detect) Entero/Rhino (PCR) (Not Detect) Serratia marcescens PCR (Not Detect) Staphylococcus sp PCR (Not Detect) Staph aureus (PCR) (Not Detect) mecA-Methicil Res Gene Streptococcus sp PCR (Not Detect) Group A Strep (PCR) (Not Detect) Strep agalactiae (PCR) (Not Detect) Strep pneumoniae (PCR) (Not Detect) P. aeruginosa (PCR) (Not Detect) Minoo/B-Vanco Res Genes KPC-Carbap Res Gene PCR (Not Detect) Blood Type Antibody Screen Crossmatch 10/27/21 10/27/21 10/27/21 Range/Units 18:59 18:59 18:59 WBC (4.5-11.0) X10^3/uL RBC (4.5-5.9) X10^6/uL Hgb (13.5-17.5) g/dL Hct (41-53) % MCV (80-100) fL MCH (26-34) PG MCHC (30-36) % RDW (11.6-14.8) % Plt Count (150-400) X10^3/uL Neut % (Auto) (50-75) % Lymph % (Auto) (25-40) % Stark % (Auto) (3-14) % Eos % (Auto) (2-4) % Baso % (Auto) (0-2) % Neut # (Auto) (4995-8350) /uL Lymph # (Auto) (8476-6882) /uL Stark # (Auto) (0-900) /uL Eos # (Auto) (0-450) /uL Baso # (Auto) (0-100) /uL PT (10.1-12.7) SECONDS INR (0.9-1.3) APTT (26-36) SECONDS Sodium (137-145) mmol/L Potassium (3.4-5.1) mmol/L Chloride (98-107) mmol/L Carbon Dioxide (22-32) mmol/L BUN (9-20) mg/dL Creatinine (0.66-1.25) mg/dL Estimated GFR (>60) mL/min BUN/Creatinine Ratio (6-22) Glucose (80-110) mg/dL Lactate 1.5 (0.7-2.1) mmol/L Calcium (8.4-10.2) mg/dL Total Bilirubin (0.2-1.3) mg/dL AST (17-59) IU/L ALT (<50) IU/L Alkaline Phosphatase (38-126) U/L Total Creatine Kinase 39 L (55-170) U/L CK-MB (CK-2) TNP CK-MB (CK-2) Rel Index TNP Troponin I < 0.012 (0.01-0.034) ng/mL Total Protein (6.3-8.2) g/dL Albumin (3.5-5.0) g/dL Globulin (1.7-4.1) g/dL Albumin/Globulin Ratio (1.0-2.8) Procalcitonin 0.46 (<0.5) ng/mL Urine Color Urine Appearance Urine pH (4.5-8.0) Ur Specific [place] (1.000-1.035) Urine Protein (Negative) Urine Glucose (UA) (Negative) g/dL Urine Ketones (NEGATIVE) Urine Occult Blood (Negative) Urine Nitrate (Negative) Urine Bilirubin (NEGATIVE) Ur Bilirubin Confirm (Negative) Urine Urobilinogen (0.2) E.U./dL Ur Leukocyte Esterase (NEGATIVE) Urine RBC (0-5/HPF) Urine WBC (0-5/HPF) Amorphous Sediment Urine Bacteria (None) Hyaline Casts (None) Urine Mucus (Negative) Ur Culture Indicated? A. baumannii (PCR) (Not Detect) Chlamy pneumoniae PCR (Not Detect) Adenovirus (PCR) (Not Detect) B. pertussis DNA (PCR) (Not Detecte) B.parapertussis DNA PCR (Not Detecte) Brenda albicans (PCR) (Not Detect) C. glabrata (PCR) (Not Detect) C. krusei (PCR) (Not Detect) C. parapsilosis (PCR) (Not Detect) C. tropicalis (PCR) (Not Detect) Coronavirus OC43 (PCR) (Not Detect) Coronavirus HKU1 (PCR) (Not Detect) Coronavirus 229E (PCR) (Not Detect) SARS-CoV-2 (PCR) (Not Detecte) Coronavirus NL63 (PCR) (Not Detect) Enterobacteriac sp PCR (Not Detect) E. cloacae complex PCR (Not Detect) Enterococcus sp PCR (Not Detect) E. coli (PCR) (Not Detect) H. influenzae (PCR) (Not Detect) Human Metapneumovir PCR (Not Detect) Influenza Type A (PCR) (Not Detect) Influenza Type B (PCR) (Not Detect) Klebsiella oxytoca PCR (Not Detect) Klebsiella pneumoniae (Not Detect) List. monocytogenes PCR (Not Detect) M. pneumoniae (PCR) (Not Detect) N. meningitidis (PCR) (Not Detect) Parainfluenza 1 (PCR) (Not Detect) Parainfluenza 2 (PCR) (Not Detect) Parainfluenza 3 (PCR) (Not Detect) Parainfluenza 4 (PCR) (Not Detect) Proteus species (PCR) (Not Detect) RSV (PCR) (Not Detect) Entero/Rhino (PCR) (Not Detect) Serratia marcescens PCR (Not Detect) Staphylococcus sp PCR (Not Detect) Staph aureus (PCR) (Not Detect) mecA-Methicil Res Gene Streptococcus sp PCR (Not Detect) Group A Strep (PCR) (Not Detect) Strep agalactiae (PCR) (Not Detect) Strep pneumoniae (PCR) (Not Detect) P. aeruginosa (PCR) (Not Detect) Minoo/B-Vanco Res Genes KPC-Carbap Res Gene PCR (Not Detect) Blood Type O Positive Antibody Screen Negative Crossmatch See Detail 10/27/21 10/27/21 10/27/21 Range/Units 18:59 18:59 20:09 WBC (4.5-11.0) X10^3/uL RBC (4.5-5.9) X10^6/uL Hgb (13.5-17.5) g/dL Hct (41-53) % MCV (80-100) fL MCH (26-34) PG MCHC (30-36) % RDW (11.6-14.8) % Plt Count (150-400) X10^3/uL Neut % (Auto) (50-75) % Lymph % (Auto) (25-40) % Stark % (Auto) (3-14) % Eos % (Auto) (2-4) % Baso % (Auto) (0-2) % Neut # (Auto) (9431-7485) /uL Lymph # (Auto) (7294-1934) /uL Stark # (Auto) (0-900) /uL Eos # (Auto) (0-450) /uL Baso # (Auto) (0-100) /uL PT (10.1-12.7) SECONDS INR (0.9-1.3) APTT (26-36) SECONDS Sodium (137-145) mmol/L Potassium (3.4-5.1) mmol/L Chloride (98-107) mmol/L Carbon Dioxide (22-32) mmol/L BUN (9-20) mg/dL Creatinine (0.66-1.25) mg/dL Estimated GFR (>60) mL/min BUN/Creatinine Ratio (6-22) Glucose (80-110) mg/dL Lactate (0.7-2.1) mmol/L Calcium (8.4-10.2) mg/dL Total Bilirubin (0.2-1.3) mg/dL AST (17-59) IU/L ALT (<50) IU/L Alkaline Phosphatase (38-126) U/L Total Creatine Kinase (55-170) U/L CK-MB (CK-2) CK-MB (CK-2) Rel Index Troponin I (0.01-0.034) ng/mL Total Protein (6.3-8.2) g/dL Albumin (3.5-5.0) g/dL Globulin (1.7-4.1) g/dL Albumin/Globulin Ratio (1.0-2.8) Procalcitonin (<0.5) ng/mL Urine Color Urine Appearance Urine pH (4.5-8.0) Ur Specific [place] (1.000-1.035) Urine Protein (Negative) Urine Glucose (UA) (Negative) g/dL Urine Ketones (NEGATIVE) Urine Occult Blood (Negative) Urine Nitrate (Negative) Urine Bilirubin (NEGATIVE) Ur Bilirubin Confirm Negative (Negative) Urine Urobilinogen (0.2) E.U./dL Ur Leukocyte Esterase (NEGATIVE) Urine RBC (0-5/HPF) Urine WBC (0-5/HPF) Amorphous Sediment Urine Bacteria (None) Hyaline Casts (None) Urine Mucus (Negative) Ur Culture Indicated? A. baumannii (PCR) Not detected (Not Detect) Chlamy pneumoniae PCR Not detected (Not Detect) Adenovirus (PCR) Not detected (Not Detect) B. pertussis DNA (PCR) Not detected (Not Detecte) B.parapertussis DNA PCR Not detected (Not Detecte) Brenda albicans (PCR) Not detected (Not Detect) C. glabrata (PCR) Not detected (Not Detect) C. krusei (PCR) Not detected (Not Detect) C. parapsilosis (PCR) Not detected (Not Detect) C. tropicalis (PCR) Not detected (Not Detect) Coronavirus OC43 (PCR) Not detected (Not Detect) Coronavirus HKU1 (PCR) Not detected (Not Detect) Coronavirus 229E (PCR) Not detected (Not Detect) SARS-CoV-2 (PCR) Not detected (Not Detecte) Coronavirus NL63 (PCR) Not detected (Not Detect) Enterobacteriac sp PCR Detected H (Not Detect) E. cloacae complex PCR Not detected (Not Detect) Enterococcus sp PCR Not detected (Not Detect) E. coli (PCR) Not detected (Not Detect) H. influenzae (PCR) Not detected (Not Detect) Human Metapneumovir PCR Not detected (Not Detect) Influenza Type A (PCR) Not detected (Not Detect) Influenza Type B (PCR) Not detected (Not Detect) Klebsiella oxytoca PCR Not detected (Not Detect) Klebsiella pneumoniae Detected H (Not Detect) List. monocytogenes PCR Not detected (Not Detect) M. pneumoniae (PCR) Not detected (Not Detect) N. meningitidis (PCR) Not detected (Not Detect) Parainfluenza 1 (PCR) Not detected (Not Detect) Parainfluenza 2 (PCR) Not detected (Not Detect) Parainfluenza 3 (PCR) Not detected (Not Detect) Parainfluenza 4 (PCR) Not detected (Not Detect) Proteus species (PCR) Not detected (Not Detect) RSV (PCR) Not detected (Not Detect) Entero/Rhino (PCR) Not detected (Not Detect) Serratia marcescens PCR Not detected (Not Detect) Staphylococcus sp PCR Not detected (Not Detect) Staph aureus (PCR) Not detected (Not Detect) mecA-Methicil Res Gene Not Reportable Streptococcus sp PCR Not detected (Not Detect) Group A Strep (PCR) Not detected (Not Detect) Strep agalactiae (PCR) Not detected (Not Detect) Strep pneumoniae (PCR) Not detected (Not Detect) P. aeruginosa (PCR) Not detected (Not Detect) Minoo/B-Vanco Res Genes Not Reportable KPC-Carbap Res Gene PCR Not detected (Not Detect) Blood Type Antibody Screen Crossmatch 10/27/21 10/27/21 10/27/21 Range/Units 20:09 21:55 21:55 WBC (4.5-11.0) X10^3/uL RBC (4.5-5.9) X10^6/uL Hgb (13.5-17.5) g/dL Hct (41-53) % MCV (80-100) fL MCH (26-34) PG MCHC (30-36) % RDW (11.6-14.8) % Plt Count (150-400) X10^3/uL Neut % (Auto) (50-75) % Lymph % (Auto) (25-40) % Stark % (Auto) (3-14) % Eos % (Auto) (2-4) % Baso % (Auto) (0-2) % Neut # (Auto) (8778-8072) /uL Lymph # (Auto) (0031-9055) /uL Stark # (Auto) (0-900) /uL Eos # (Auto) (0-450) /uL Baso # (Auto) (0-100) /uL PT (10.1-12.7) SECONDS INR (0.9-1.3) APTT (26-36) SECONDS Sodium (137-145) mmol/L Potassium (3.4-5.1) mmol/L Chloride (98-107) mmol/L Carbon Dioxide (22-32) mmol/L BUN (9-20) mg/dL Creatinine (0.66-1.25) mg/dL Estimated GFR (>60) mL/min BUN/Creatinine Ratio (6-22) Glucose (80-110) mg/dL Lactate 0.7 (0.7-2.1) mmol/L Calcium (8.4-10.2) mg/dL Total Bilirubin (0.2-1.3) mg/dL AST (17-59) IU/L ALT (<50) IU/L Alkaline Phosphatase (38-126) U/L Total Creatine Kinase (55-170) U/L CK-MB (CK-2) CK-MB (CK-2) Rel Index Troponin I 0.014 (0.01-0.034) ng/mL Total Protein (6.3-8.2) g/dL Albumin (3.5-5.0) g/dL Globulin (1.7-4.1) g/dL Albumin/Globulin Ratio (1.0-2.8) Procalcitonin (<0.5) ng/mL Urine Color Yellow Urine Appearance Clear Urine pH 5.0 (4.5-8.0) Ur Specific [place] 1.015 (1.000-1.035) Urine Protein 1+ H (Negative) Urine Glucose (UA) Negative (Negative) g/dL Urine Ketones 1+ H (NEGATIVE) Urine Occult Blood Negative (Negative) Urine Nitrate Negative (Negative) Urine Bilirubin 1+ H (NEGATIVE) Ur Bilirubin Confirm (Negative) Urine Urobilinogen 1.0 (0.2) E.U./dL Ur Leukocyte Esterase Trace H (NEGATIVE) Urine RBC None seen (0-5/HPF) Urine WBC 5-10/hpf H (0-5/HPF) Amorphous Sediment 1+ Urine Bacteria Occasional (0-1) (None) Hyaline Casts 0-1/lpf (None) Urine Mucus 1+ H (Negative) Ur Culture Indicated? Specimen cultured A. baumannii (PCR) (Not Detect) Chlamy pneumoniae PCR (Not Detect) Adenovirus (PCR) (Not Detect) B. pertussis DNA (PCR) (Not Detecte) B.parapertussis DNA PCR (Not Detecte) Brenda albicans (PCR) (Not Detect) C. glabrata (PCR) (Not Detect) C. krusei (PCR) (Not Detect) C. parapsilosis (PCR) (Not Detect) C. tropicalis (PCR) (Not Detect) Coronavirus OC43 (PCR) (Not Detect) Coronavirus HKU1 (PCR) (Not Detect) Coronavirus 229E (PCR) (Not Detect) SARS-CoV-2 (PCR) (Not Detecte) Coronavirus NL63 (PCR) (Not Detect) Enterobacteriac sp PCR (Not Detect) E. cloacae complex PCR (Not Detect) Enterococcus sp PCR (Not Detect) E. coli (PCR) (Not Detect) H. influenzae (PCR) (Not Detect) Human Metapneumovir PCR (Not Detect) Influenza Type A (PCR) (Not Detect) Influenza Type B (PCR) (Not Detect) Klebsiella oxytoca PCR (Not Detect) Klebsiella pneumoniae (Not Detect) List. monocytogenes PCR (Not Detect) M. pneumoniae (PCR) (Not Detect) N. meningitidis (PCR) (Not Detect) Parainfluenza 1 (PCR) (Not Detect) Parainfluenza 2 (PCR) (Not Detect) Parainfluenza 3 (PCR) (Not Detect) Parainfluenza 4 (PCR) (Not Detect) Proteus species (PCR) (Not Detect) RSV (PCR) (Not Detect) Entero/Rhino (PCR) (Not Detect) Serratia marcescens PCR (Not Detect) Staphylococcus sp PCR (Not Detect) Staph aureus (PCR) (Not Detect) mecA-Methicil Res Gene Streptococcus sp PCR (Not Detect) Group A Strep (PCR) (Not Detect) Strep agalactiae (PCR) (Not Detect) Strep pneumoniae (PCR) (Not Detect) P. aeruginosa (PCR) (Not Detect) [place]/B-Vanco Res Genes KPC-Carbap Res Gene PCR (Not Detect) Blood Type Antibody Screen Crossmatch 10/27/21 10/28/21 10/28/21 Range/Units 22:37 07:38 07:38 WBC 12.2 H (4.5-11.0) X10^3/uL RBC 2.66 L (4.5-5.9) X10^6/uL Hgb 6.5 L* 8.1 L (13.5-17.5) g/dL Hct 19.2 L* 24.0 L (41-53) % MCV 90.0 (80-100) fL MCH 30.6 (26-34) PG MCHC 34.0 (30-36) % RDW 14.9 H (11.6-14.8) % Plt Count 245 (150-400) X10^3/uL Neut % (Auto) 82.1 H (50-75) % Lymph % (Auto) 6.8 L (25-40) % Stark % (Auto) 10.8 (3-14) % Eos % (Auto) 0.0 L (2-4) % Baso % (Auto) 0.3 (0-2) % Neut # (Auto) 31991 H (1817-9603) /uL Lymph # (Auto) 800 L (1794-4190) /uL Stark # (Auto) 1300 H (0-900) /uL Eos # (Auto) 0 (0-450) /uL Baso # (Auto) 0 (0-100) /uL PT (10.1-12.7) SECONDS INR (0.9-1.3) APTT (26-36) SECONDS Sodium 133 L (137-145) mmol/L Potassium 4.5 (3.4-5.1) mmol/L Chloride 100 (98-107) mmol/L Carbon Dioxide 27 (22-32) mmol/L BUN 21 H (9-20) mg/dL Creatinine 0.90 (0.66-1.25) mg/dL Estimated GFR > 60 (>60) mL/min BUN/Creatinine Ratio 23.3 H (6-22) Glucose 115 H (80-110) mg/dL Lactate (0.7-2.1) mmol/L Calcium 7.9 L (8.4-10.2) mg/dL Total Bilirubin 1.3 (0.2-1.3) mg/dL AST 53 (17-59) IU/L ALT 109 H (<50) IU/L Alkaline Phosphatase 445 H (38-126) U/L Total Creatine Kinase (55-170) U/L CK-MB (CK-2) CK-MB (CK-2) Rel Index Troponin I (0.01-0.034) ng/mL Total Protein 6.0 L (6.3-8.2) g/dL Albumin 3.0 L (3.5-5.0) g/dL Globulin 3.0 (1.7-4.1) g/dL Albumin/Globulin Ratio 1.0 (1.0-2.8) Procalcitonin (<0.5) ng/mL Urine Color Urine Appearance Urine pH (4.5-8.0) Ur Specific [place] (1.000-1.035) Urine Protein (Negative) Urine Glucose (UA) (Negative) g/dL Urine Ketones (NEGATIVE) Urine Occult Blood (Negative) Urine Nitrate (Negative) Urine Bilirubin (NEGATIVE) Ur Bilirubin Confirm (Negative) Urine Urobilinogen (0.2) E.U./dL Ur Leukocyte Esterase (NEGATIVE) Urine RBC (0-5/HPF) Urine WBC (0-5/HPF) Amorphous Sediment Urine Bacteria (None) Hyaline Casts (None) Urine Mucus (Negative) Ur Culture Indicated? A. baumannii (PCR) (Not Detect) Chlamy pneumoniae PCR (Not Detect) Adenovirus (PCR) (Not Detect) B. pertussis DNA (PCR) (Not Detecte) B.parapertussis DNA PCR (Not Detecte) Brenda albicans (PCR) (Not Detect) C. glabrata (PCR) (Not Detect) C. krusei (PCR) (Not Detect) C. parapsilosis (PCR) (Not Detect) C. tropicalis (PCR) (Not Detect) Coronavirus OC43 (PCR) (Not Detect) Coronavirus HKU1 (PCR) (Not Detect) Coronavirus 229E (PCR) (Not Detect) SARS-CoV-2 (PCR) (Not Detecte) Coronavirus NL63 (PCR) (Not Detect) Enterobacteriac sp PCR (Not Detect) E. cloacae complex PCR (Not Detect) Enterococcus sp PCR (Not Detect) E. coli (PCR) (Not Detect) H. influenzae (PCR) (Not Detect) Human Metapneumovir PCR (Not Detect) Influenza Type A (PCR) (Not Detect) Influenza Type B (PCR) (Not Detect) Klebsiella oxytoca PCR (Not Detect) Klebsiella pneumoniae (Not Detect) List. monocytogenes PCR (Not Detect) M. pneumoniae (PCR) (Not Detect) N. meningitidis (PCR) (Not Detect) Parainfluenza 1 (PCR) (Not Detect) Parainfluenza 2 (PCR) (Not Detect) Parainfluenza 3 (PCR) (Not Detect) Parainfluenza 4 (PCR) (Not Detect) Proteus species (PCR) (Not Detect) RSV (PCR) (Not Detect) Entero/Rhino (PCR) (Not Detect) Serratia marcescens PCR (Not Detect) Staphylococcus sp PCR (Not Detect) Staph aureus (PCR) (Not Detect) mecA-Methicil Res Gene Streptococcus sp PCR (Not Detect) Group A Strep (PCR) (Not Detect) Strep agalactiae (PCR) (Not Detect) Strep pneumoniae (PCR) (Not Detect) P. aeruginosa (PCR) (Not Detect) Minoo/B-Vanco Res Genes KPC-Carbap Res Gene PCR (Not Detect) Blood Type Antibody Screen Crossmatch 10/28/21 Range/Units 20:03 WBC (4.5-11.0) X10^3/uL RBC (4.5-5.9) X10^6/uL Hgb 8.7 L (13.5-17.5) g/dL Hct 25.6 L (41-53) % MCV (80-100) fL MCH (26-34) PG MCHC (30-36) % RDW (11.6-14.8) % Plt Count (150-400) X10^3/uL Neut % (Auto) (50-75) % Lymph % (Auto) (25-40) % Stark % (Auto) (3-14) % Eos % (Auto) (2-4) % Baso % (Auto) (0-2) % Neut # (Auto) (0964-6476) /uL Lymph # (Auto) (5914-4075) /uL Stark # (Auto) (0-900) /uL Eos # (Auto) (0-450) /uL Baso # (Auto) (0-100) /uL PT (10.1-12.7) SECONDS INR (0.9-1.3) APTT (26-36) SECONDS Sodium (137-145) mmol/L Potassium (3.4-5.1) mmol/L Chloride (98-107) mmol/L Carbon Dioxide (22-32) mmol/L BUN (9-20) mg/dL Creatinine (0.66-1.25) mg/dL Estimated GFR (>60) mL/min BUN/Creatinine Ratio (6-22) Glucose (80-110) mg/dL Lactate (0.7-2.1) mmol/L Calcium (8.4-10.2) mg/dL Total Bilirubin (0.2-1.3) mg/dL AST (17-59) IU/L ALT (<50) IU/L Alkaline Phosphatase (38-126) U/L Total Creatine Kinase (55-170) U/L CK-MB (CK-2) CK-MB (CK-2) Rel Index Troponin I (0.01-0.034) ng/mL Total Protein (6.3-8.2) g/dL Albumin (3.5-5.0) g/dL Globulin (1.7-4.1) g/dL Albumin/Globulin Ratio (1.0-2.8) Procalcitonin (<0.5) ng/mL Urine Color Urine Appearance Urine pH (4.5-8.0) Ur Specific [place] (1.000-1.035) Urine Protein (Negative) Urine Glucose (UA) (Negative) g/dL Urine Ketones (NEGATIVE) Urine Occult Blood (Negative) Urine Nitrate (Negative) Urine Bilirubin (NEGATIVE) Ur Bilirubin Confirm (Negative) Urine Urobilinogen (0.2) E.U./dL Ur Leukocyte Esterase (NEGATIVE) Urine RBC (0-5/HPF) Urine WBC (0-5/HPF) Amorphous Sediment Urine Bacteria (None) Hyaline Casts (None) Urine Mucus (Negative) Ur Culture Indicated? A. baumannii (PCR) (Not Detect) Chlamy pneumoniae PCR (Not Detect) Adenovirus (PCR) (Not Detect) B. pertussis DNA (PCR) (Not Detecte) B.parapertussis DNA PCR (Not Detecte) Brenda albicans (PCR) (Not Detect) C. glabrata (PCR) (Not Detect) C. krusei (PCR) (Not Detect) C. parapsilosis (PCR) (Not Detect) C. tropicalis (PCR) (Not Detect) Coronavirus OC43 (PCR) (Not Detect) Coronavirus HKU1 (PCR) (Not Detect) Coronavirus 229E (PCR) (Not Detect) SARS-CoV-2 (PCR) (Not Detecte) Coronavirus NL63 (PCR) (Not Detect) Enterobacteriac sp PCR (Not Detect) E. cloacae complex PCR (Not Detect) Enterococcus sp PCR (Not Detect) E. coli (PCR) (Not Detect) H. influenzae (PCR) (Not Detect) Human Metapneumovir PCR (Not Detect) Influenza Type A (PCR) (Not Detect) Influenza Type B (PCR) (Not Detect) Klebsiella oxytoca PCR (Not Detect) Klebsiella pneumoniae (Not Detect) List. monocytogenes PCR (Not Detect) M. pneumoniae (PCR) (Not Detect) N. meningitidis (PCR) (Not Detect) Parainfluenza 1 (PCR) (Not Detect) Parainfluenza 2 (PCR) (Not Detect) Parainfluenza 3 (PCR) (Not Detect) Parainfluenza 4 (PCR) (Not Detect) Proteus species (PCR) (Not Detect) RSV (PCR) (Not Detect) Entero/Rhino (PCR) (Not Detect) Serratia marcescens PCR (Not Detect) Staphylococcus sp PCR (Not Detect) Staph aureus (PCR) (Not Detect) mecA-Methicil Res Gene Streptococcus sp PCR (Not Detect) Group A Strep (PCR) (Not Detect) Strep agalactiae (PCR) (Not Detect) Strep pneumoniae (PCR) (Not Detect) P. aeruginosa (PCR) (Not Detect) Minoo/B-Vanco Res Genes KPC-Carbap Res Gene PCR (Not Detect) Blood Type Antibody Screen Crossmatch Point of Care Testing Glucose POC 105 Urine Dip Bedside Urine Glucose Negative Bedside Urine Bilirubin + 1 Bedside Urine Ketone +/- 5 Urine Specific [place] 1.02 Bedside Urine Occult Blood - Negative Bedside Urine pH 6 Bedside Urine Protein +/- 15 Bedside Urine Urobilinogen +/- 1mg Bedside Urine Nitrite - Negative Bedside Urine Leukocytes - Negative Esterase Imaging Data CT scan - abdomen/pelvis: Radiologist's Impression: Signed Patient: Lauro Mosley MR#: [id number] : 1945 Acct:[id number] Age/Sex: 76 / M Date of Service: 10/27/21 Loc: ED Accession Number: [id number] ?? Procedure: CT abdomen pelvis w con Ordering Provider: Mami Medina D.O. PROCEDURE:? CT ABDOMEN PELVIS W CON ? 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 TECHNIQUE:? After the administration of IV contrast, axial sections were acquired from the lung bases to the pubic symphysis.? Coronal and sagittal reformats were performed.? For radiation dose reduction, the following was used:? automated exposure control, adjustment of mA and/or kV according to patient size. ? COMPARISON:? [facility], NM, NM PET CT FUSION SKULL 2 THIGH, 10/27/2021, 8:31.? [facility], CT, CT CHEST ABD PEL W CON, 10/21/2021, 12:27. ? FINDINGS:? Image quality:? Excellent.? ? Lung bases:? There is near complete resolution of the clustered ground-glass nodule seen in the left lower lobe on the prior studies consistent with resolution of pneumonia.? ? Heart:? Heart is normal in size.? There is mild fluid distention of the visualized distal esophagus again noted. ? ? ABDOMEN: Liver:? No discrete hepatic mass lesion. Gallbladder:? The gallbladder is distended with mild wall thickening.? No calcified gallstones. Biliary ducts:? There is intra and extrahepatic biliary ductal dilatation which appears increased compared to the recent prior CT.? The common bile duct measures up to approximately 1.3 cm in diameter.? This extends to the ampullary region where there is a loculated collection communicating with the descending portion of the duodenum.? The findings again are suggestive of a duodenal diverticulum versus a contained perforation.? Irregularity gastric and duodenal wall thickening is demonstrated in proximity to the ampulla. Pancreas:? No pancreatic duct dilatation.? No discrete pancreatic mass.? ? Spleen:? Normal in size.? ? Adrenal Glands:? No adrenal nodules.? ? Kidneys and Ureters:? No hydronephrosis.? ? ? Stomach and Bowel:? There is diffuse gastric wall thickening redemonstrated most prominent within the distal stomach with extension into the proximal duodenum.? Findings are consistent with history of gastric cancer.? Small and large bowel loops are normal in overall caliber.? There is segmental irregular wall thickening along the distal ascending and proximal transverse colon centered at the hepatic flexure likely representing peritoneal metastases along the colonic wall.? Mild segmental colonic wall thickening is also demonstrated in the sigmoid colon which may represent a mild colitis.? There is colonic diverticulosis without acute diverticulitis.? No evidence of bowel obstruction.? Peritoneum:? There is a small amount of intraperitoneal free fluid.? No free air.? There is irregular soft tissue infiltration of the omentum redemonstrated within the upper abdomen as well as in the mesentery along the stomach.? Findings are consistent with peritoneal carcinomatosis. ? Ventral Wall: ? No hernia.? Abdominal Nodes:? No retroperitoneal or mesenteric adenopathy by size criteria.? Vessels:? Aorta and inferior vena cava are normal in size.? ? PELVIS: Pelvic Organs:? There is moderate enlargement of the prostate..? ? Bladder:? There is mild concentric bladder wall thickening and trabeculation suggesting sequelae of chronic bladder outlet obstruction.? There is a left bladder diverticulum again noted. Pelvic Nodes: No enlarged lymph nodes.? Miscellaneous: No inguinal hernias are seen. ? ? ? Bones:? Visualized osseous structures demonstrate no suspicious focal lesions. ? IMPRESSION:? ? 1.? Irregularly gastric and proximal duodenal wall thickening consistent with history of gastric carcinoma. ? 2. Irregular infiltrative soft tissue within the omentum and mesentery in the upper abdomen as well as irregular wall thickening along the colon centered at the hep atic flexure.? The findings are consistent with peritoneal carcinomatosis. ? 3. Increased intra and extrahepatic biliary ductal dilatation extending to the ampulla again suggestive of biliary obstruction secondary to tumor infiltration of the ampulla.? A loculated fluid collection in this region contiguous with the descending duodenum again likely represents a duodenal diverticulum and less likely a contained perforation. ? 4. Colonic diverticulosis without acute diverticulitis.? Mild segmental wall thickening in the sigmoid colon is suggestive of a mild colitis. ? 5. Mild fluid distention of the visualized distal esophagus and proximal stomach likely reflects a degree of gastric outlet obstruction. ? ? ? Dictated by: Brice Strong M.D. on 10/27/2021 at 22:11 ?? ECG Data Interpretation: Sinus rhythm rate 102 VA interval 150 QRS 84 see for 24 T-wave inversion V5 and V4 with ST depression in precordial leads. MDM Narrative Medical decision making narrative: The patient is found to be febrile. His source of infection is not actually found urine is clean respiratory panel is clean. Abdominal CT does show significant probable peritoneal carcinomatosis is with intra and extra biliary ductal dilation . Initial hemoglobin was relatively stable to prior. However during patient's course in the emergency department his blood pressure continued to decrease. He was given about 2 L of fluid for the sepsis protocol he was also given dose of Zosyn empirically. No sign of meningitis unsure of source at this time blood cultures pending. Repeat H&H did show a significant drop and with decreasing blood pressure minimally responsive to fluids patient was started packed red blood cells. Dr. Torres surgery was consulted in regards to patient's current condition and symptoms. At this time she recommends that patient be transferred to higher level of care for IR immobilization for an unresectable cancer. She thinks that patient will likely need CT angio as well. Patient's blood pressure definitely improved with 2 units of packed red blood cells. Patient has not had any episodes of hematemesis or his rectal bleeding while in the emergency depart 05:53 Dr Tate, oncology at [facility] has been updated patient's symptoms and test results in kindly accepts patient for transfer. At this time patient's blood pressure is stable eyes he is not tachycardic stable for [facility] bed. However if blood pressure condition changes they request to be notified Patient signed out to Dr. Finn 10/28/21 9pm Patient signed out to me by Dr. Hermosillo and. Patient has stabilized. No further bleeding. Blood cultures did come back positive for Klebsiella he was given a dose of Levaquin. Initially surgery wanted to continue with transfer to [facility] for embolization. However I did discuss with Dr. Brenda madrid again, now that patient's H and H's stabilize it blood pressure has stabilized and now has bacteremia, he states patient probably does not need any intervention for acute bleeding she needs to be treated for his bacteremia which I agree with. Unfortunately we do not have any beds at this hospital. Dr. Janeth Madison at [facility] has been updated on patient's symptoms test results and kindly accepted patient for transfer <Dane Finn MD - Last Filed: 10/29/21 07:02> Lab Data Labs: Lab Results 10/27/21 10/27/21 10/27/21 Range/Units 18:59 18:59 18:59 WBC 10.1 (4.5-11.0) X10^3/uL RBC 2.62 L (4.5-5.9) X10^6/uL Hgb 8.2 L (13.5-17.5) g/dL Hct 23.8 L (41-53) % MCV 90.9 (80-100) fL MCH 31.5 (26-34) PG MCHC 34.7 (30-36) % RDW 14.6 (11.6-14.8) % Plt Count 325 (150-400) X10^3/uL Neut % (Auto) 86.2 H (50-75) % Lymph % (Auto) 3.3 L (25-40) % Stark % (Auto) 9.3 (3-14) % Eos % (Auto) 0.2 L (2-4) % Baso % (Auto) 1.0 (0-2) % Neut # (Auto) 8700 H (5098-1133) /uL Lymph # (Auto) 300 L (8998-0455) /uL Stark # (Auto) 900 (0-900) /uL Eos # (Auto) 0 (0-450) /uL Baso # (Auto) 100 (0-100) /uL PT 13.8 H (10.1-12.7) SECONDS INR 1.2 (0.9-1.3) APTT 27 (26-36) SECONDS Sodium 131 L (137-145) mmol/L Potassium 3.9 (3.4-5.1) mmol/L Chloride 94 L (98-107) mmol/L Carbon Dioxide 25 (22-32) mmol/L BUN 29 H (9-20) mg/dL Creatinine 1.03 (0.66-1.25) mg/dL Estimated GFR > 60 (>60) mL/min BUN/Creatinine Ratio 28.2 H (6-22) Glucose 139 H (80-110) mg/dL Lactate (0.7-2.1) mmol/L Calcium 9.0 (8.4-10.2) mg/dL Total Bilirubin 0.9 (0.2-1.3) mg/dL AST 91 H (17-59) IU/L ALT 144 H (<50) IU/L Alkaline Phosphatase 657 H (38-126) U/L Total Creatine Kinase (55-170) U/L CK-MB (CK-2) CK-MB (CK-2) Rel Index Troponin I (0.01-0.034) ng/mL Total Protein 7.3 (6.3-8.2) g/dL Albumin 3.9 (3.5-5.0) g/dL Globulin 3.4 (1.7-4.1) g/dL Albumin/Globulin Ratio 1.1 (1.0-2.8) Procalcitonin (<0.5) ng/mL Urine Color Urine Appearance Urine pH (4.5-8.0) Ur Specific [place] (1.000-1.035) Urine Protein (Negative) Urine Glucose (UA) (Negative) g/dL Urine Ketones (NEGATIVE) Urine Occult Blood (Negative) Urine Nitrate (Negative) Urine Bilirubin (NEGATIVE) Ur Bilirubin Confirm (Negative) Urine Urobilinogen (0.2) E.U./dL Ur Leukocyte Esterase (NEGATIVE) Urine RBC (0-5/HPF) Urine WBC (0-5/HPF) Amorphous Sediment Urine Bacteria (None) Hyaline Casts (None) Urine Mucus (Negative) Ur Culture Indicated? A. baumannii (PCR) (Not Detect) Chlamy pneumoniae PCR (Not Detect) Adenovirus (PCR) (Not Detect) B. pertussis DNA (PCR) (Not Detecte) B.parapertussis DNA PCR (Not Detecte) Brenda albicans (PCR) (Not Detect) C. glabrata (PCR) (Not Detect) C. krusei (PCR) (Not Detect) C. parapsilosis (PCR) (Not Detect) C. tropicalis (PCR) (Not Detect) Coronavirus OC43 (PCR) (Not Detect) Coronavirus HKU1 (PCR) (Not Detect) Coronavirus 229E (PCR) (Not Detect) SARS-CoV-2 (PCR) (Not Detecte) Coronavirus NL63 (PCR) (Not Detect) Enterobacteriac sp PCR (Not Detect) E. cloacae complex PCR (Not Detect) Enterococcus sp PCR (Not Detect) E. coli (PCR) (Not Detect) H. influenzae (PCR) (Not Detect) Human Metapneumovir PCR (Not Detect) Influenza Type A (PCR) (Not Detect) Influenza Type B (PCR) (Not Detect) Klebsiella oxytoca PCR (Not Detect) Klebsiella pneumoniae (Not Detect) List. monocytogenes PCR (Not Detect) M. pneumoniae (PCR) (Not Detect) N. meningitidis (PCR) (Not Detect) Parainfluenza 1 (PCR) (Not Detect) Parainfluenza 2 (PCR) (Not Detect) Parainfluenza 3 (PCR) (Not Detect) Parainfluenza 4 (PCR) (Not Detect) Proteus species (PCR) (Not Detect) RSV (PCR) (Not Detect) Entero/Rhino (PCR) (Not Detect) Serratia marcescens PCR (Not Detect) Staphylococcus sp PCR (Not Detect) Staph aureus (PCR) (Not Detect) mecA-Methicil Res Gene Streptococcus sp PCR (Not Detect) Group A Strep (PCR) (Not Detect) Strep agalactiae (PCR) (Not Detect) Strep pneumoniae (PCR) (Not Detect) P. aeruginosa (PCR) (Not Detect) Minoo/B-Vanco Res Genes KPC-Carbap Res Gene PCR (Not Detect) Blood Type Antibody Screen Crossmatch 10/27/21 10/27/21 10/27/21 Range/Units 18:59 18:59 18:59 WBC (4.5-11.0) X10^3/uL RBC (4.5-5.9) X10^6/uL Hgb (13.5-17.5) g/dL Hct (41-53) % MCV (80-100) fL MCH (26-34) PG MCHC (30-36) % RDW (11.6-14.8) % Plt Count (150-400) X10^3/uL Neut % (Auto) (50-75) % Lymph % (Auto) (25-40) % Stark % (Auto) (3-14) % Eos % (Auto) (2-4) % Baso % (Auto) (0-2) % Neut # (Auto) (2511-6413) /uL Lymph # (Auto) (2363-9975) /uL Stark # (Auto) (0-900) /uL Eos # (Auto) (0-450) /uL Baso # (Auto) (0-100) /uL PT (10.1-12.7) SECONDS INR (0.9-1.3) APTT (26-36) SECONDS Sodium (137-145) mmol/L Potassium (3.4-5.1) mmol/L Chloride (98-107) mmol/L Carbon Dioxide (22-32) mmol/L BUN (9-20) mg/dL Creatinine (0.66-1.25) mg/dL Estimated GFR (>60) mL/min BUN/Creatinine Ratio (6-22) Glucose (80-110) mg/dL Lactate 1.5 (0.7-2.1) mmol/L Calcium (8.4-10.2) mg/dL Total Bilirubin (0.2-1.3) mg/dL AST (17-59) IU/L ALT (<50) IU/L Alkaline Phosphatase (38-126) U/L Total Creatine Kinase 39 L (55-170) U/L CK-MB (CK-2) TNP CK-MB (CK-2) Rel Index TNP Troponin I < 0.012 (0.01-0.034) ng/mL Total Protein (6.3-8.2) g/dL Albumin (3.5-5.0) g/dL Globulin (1.7-4.1) g/dL Albumin/Globulin Ratio (1.0-2.8) Procalcitonin 0.46 (<0.5) ng/mL Urine Color Urine Appearance Urine pH (4.5-8.0) Ur Specific [place] (1.000-1.035) Urine Protein (Negative) Urine Glucose (UA) (Negative) g/dL Urine Ketones (NEGATIVE) Urine Occult Blood (Negative) Urine Nitrate (Negative) Urine Bilirubin (NEGATIVE) Ur Bilirubin Confirm (Negative) Urine Urobilinogen (0.2) E.U./dL Ur Leukocyte Esterase (NEGATIVE) Urine RBC (0-5/HPF) Urine WBC (0-5/HPF) Amorphous Sediment Urine Bacteria (None) Hyaline Casts (None) Urine Mucus (Negative) Ur Culture Indicated? A. baumannii (PCR) (Not Detect) Chlamy pneumoniae PCR (Not Detect) Adenovirus (PCR) (Not Detect) B. pertussis DNA (PCR) (Not Detecte) B.parapertussis DNA PCR (Not Detecte) Brenda albicans (PCR) (Not Detect) C. glabrata (PCR) (Not Detect) C. krusei (PCR) (Not Detect) C. parapsilosis (PCR) (Not Detect) C. tropicalis (PCR) (Not Detect) Coronavirus OC43 (PCR) (Not Detect) Coronavirus HKU1 (PCR) (Not Detect) Coronavirus 229E (PCR) (Not Detect) SARS-CoV-2 (PCR) (Not Detecte) Coronavirus NL63 (PCR) (Not Detect) Enterobacteriac sp PCR (Not Detect) E. cloacae complex PCR (Not Detect) Enterococcus sp PCR (Not Detect) E. coli (PCR) (Not Detect) H. influenzae (PCR) (Not Detect) Human Metapneumovir PCR (Not Detect) Influenza Type A (PCR) (Not Detect) Influenza Type B (PCR) (Not Detect) Klebsiella oxytoca PCR (Not Detect) Klebsiella pneumoniae (Not Detect) List. monocytogenes PCR (Not Detect) M. pneumoniae (PCR) (Not Detect) N. meningitidis (PCR) (Not Detect) Parainfluenza 1 (PCR) (Not Detect) Parainfluenza 2 (PCR) (Not Detect) Parainfluenza 3 (PCR) (Not Detect) Parainfluenza 4 (PCR) (Not Detect) Proteus species (PCR) (Not Detect) RSV (PCR) (Not Detect) Entero/Rhino (PCR) (Not Detect) Serratia marcescens PCR (Not Detect) Staphylococcus sp PCR (Not Detect) Staph aureus (PCR) (Not Detect) mecA-Methicil Res Gene Streptococcus sp PCR (Not Detect) Group A Strep (PCR) (Not Detect) Strep agalactiae (PCR) (Not Detect) Strep pneumoniae (PCR) (Not Detect) P. aeruginosa (PCR) (Not Detect) [place]/B-Vanco Res Genes KPC-Carbap Res Gene PCR (Not Detect) Blood Type O Positive Antibody Screen Negative Crossmatch See Detail 10/27/21 10/27/21 10/27/21 Range/Units 18:59 18:59 20:09 WBC (4.5-11.0) X10^3/uL RBC (4.5-5.9) X10^6/uL Hgb (13.5-17.5) g/dL Hct (41-53) % MCV (80-100) fL MCH (26-34) PG MCHC (30-36) % RDW (11.6-14.8) % Plt Count (150-400) X10^3/uL Neut % (Auto) (50-75) % Lymph % (Auto) (25-40) % Stark % (Auto) (3-14) % Eos % (Auto) (2-4) % Baso % (Auto) (0-2) % Neut # (Auto) (4356-3947) /uL Lymph # (Auto) (1508-1308) /uL Stark # (Auto) (0-900) /uL Eos # (Auto) (0-450) /uL Baso # (Auto) (0-100) /uL PT (10.1-12.7) SECONDS INR (0.9-1.3) APTT (26-36) SECONDS Sodium (137-145) mmol/L Potassium (3.4-5.1) mmol/L Chloride (98-107) mmol/L Carbon Dioxide (22-32) mmol/L BUN (9-20) mg/dL Creatinine (0.66-1.25) mg/dL Estimated GFR (>60) mL/min BUN/Creatinine Ratio (6-22) Glucose (80-110) mg/dL Lactate (0.7-2.1) mmol/L Calcium (8.4-10.2) mg/dL Total Bilirubin (0.2-1.3) mg/dL AST (17-59) IU/L ALT (<50) IU/L Alkaline Phosphatase (38-126) U/L Total Creatine Kinase (55-170) U/L CK-MB (CK-2) CK-MB (CK-2) Rel Index Troponin I (0.01-0.034) ng/mL Total Protein (6.3-8.2) g/dL Albumin (3.5-5.0) g/dL Globulin (1.7-4.1) g/dL Albumin/Globulin Ratio (1.0-2.8) Procalcitonin (<0.5) ng/mL Urine Color Urine Appearance Urine pH (4.5-8.0) Ur Specific [place] (1.000-1.035) Urine Protein (Negative) Urine Glucose (UA) (Negative) g/dL Urine Ketones (NEGATIVE) Urine Occult Blood (Negative) Urine Nitrate (Negative) Urine Bilirubin (NEGATIVE) Ur Bilirubin Confirm Negative (Negative) Urine Urobilinogen (0.2) E.U./dL Ur Leukocyte Esterase (NEGATIVE) Urine RBC (0-5/HPF) Urine WBC (0-5/HPF) Amorphous Sediment Urine Bacteria (None) Hyaline Casts (None) Urine Mucus (Negative) Ur Culture Indicated? A. baumannii (PCR) Not detected (Not Detect) Chlamy pneumoniae PCR Not detected (Not Detect) Adenovirus (PCR) Not detected (Not Detect) B. pertussis DNA (PCR) Not detected (Not Detecte) B.parapertussis DNA PCR Not detected (Not Detecte) Brenda albicans (PCR) Not detected (Not Detect) C. glabrata (PCR) Not detected (Not Detect) C. krusei (PCR) Not detected (Not Detect) C. parapsilosis (PCR) Not detected (Not Detect) C. tropicalis (PCR) Not detected (Not Detect) Coronavirus OC43 (PCR) Not detected (Not Detect) Coronavirus HKU1 (PCR) Not detected (Not Detect) Coronavirus 229E (PCR) Not detected (Not Detect) SARS-CoV-2 (PCR) Not detected (Not Detecte) Coronavirus NL63 (PCR) Not detected (Not Detect) Enterobacteriac sp PCR Detected H (Not Detect) E. cloacae complex PCR Not detected (Not Detect) Enterococcus sp PCR Not detected (Not Detect) E. coli (PCR) Not detected (Not Detect) H. influenzae (PCR) Not detected (Not Detect) Human Metapneumovir PCR Not detected (Not Detect) Influenza Type A (PCR) Not detected (Not Detect) Influenza Type B (PCR) Not detected (Not Detect) Klebsiella oxytoca PCR Not detected (Not Detect) Klebsiella pneumoniae Detected H (Not Detect) List. monocytogenes PCR Not detected (Not Detect) M. pneumoniae (PCR) Not detected (Not Detect) N. meningitidis (PCR) Not detected (Not Detect) Parainfluenza 1 (PCR) Not detected (Not Detect) Parainfluenza 2 (PCR) Not detected (Not Detect) Parainfluenza 3 (PCR) Not detected (Not Detect) Parainfluenza 4 (PCR) Not detected (Not Detect) Proteus species (PCR) Not detected (Not Detect) RSV (PCR) Not detected (Not Detect) Entero/Rhino (PCR) Not detected (Not Detect) Serratia marcescens PCR Not detected (Not Detect) Staphylococcus sp PCR Not detected (Not Detect) Staph aureus (PCR) Not detected (Not Detect) mecA-Methicil Res Gene Not Reportable Streptococcus sp PCR Not detected (Not Detect) Group A Strep (PCR) Not detected (Not Detect) Strep agalactiae (PCR) Not detected (Not Detect) Strep pneumoniae (PCR) Not detected (Not Detect) P. aeruginosa (PCR) Not detected (Not Detect) Minoo/B-Vanco Res Genes Not Reportable KPC-Carbap Res Gene PCR Not detected (Not Detect) Blood Type Antibody Screen Crossmatch 10/27/21 10/27/21 10/27/21 Range/Units 20:09 21:55 21:55 WBC (4.5-11.0) X10^3/uL RBC (4.5-5.9) X10^6/uL Hgb (13.5-17.5) g/dL Hct (41-53) % MCV (80-100) fL MCH (26-34) PG MCHC (30-36) % RDW (11.6-14.8) % Plt Count (150-400) X10^3/uL Neut % (Auto) (50-75) % Lymph % (Auto) (25-40) % Stark % (Auto) (3-14) % Eos % (Auto) (2-4) % Baso % (Auto) (0-2) % Neut # (Auto) (4771-5185) /uL Lymph # (Auto) (7281-8983) /uL Stark # (Auto) (0-900) /uL Eos # (Auto) (0-450) /uL Baso # (Auto) (0-100) /uL PT (10.1-12.7) SECONDS INR (0.9-1.3) APTT (26-36) SECONDS Sodium (137-145) mmol/L Potassium (3.4-5.1) mmol/L Chloride (98-107) mmol/L Carbon Dioxide (22-32) mmol/L BUN (9-20) mg/dL Creatinine (0.66-1.25) mg/dL Estimated GFR (>60) mL/min BUN/Creatinine Ratio (6-22) Glucose (80-110) mg/dL Lactate 0.7 (0.7-2.1) mmol/L Calcium (8.4-10.2) mg/dL Total Bilirubin (0.2-1.3) mg/dL AST (17-59) IU/L ALT (<50) IU/L Alkaline Phosphatase (38-126) U/L Total Creatine Kinase (55-170) U/L CK-MB (CK-2) CK-MB (CK-2) Rel Index Troponin I 0.014 (0.01-0.034) ng/mL Total Protein (6.3-8.2) g/dL Albumin (3.5-5.0) g/dL Globulin (1.7-4.1) g/dL Albumin/Globulin Ratio (1.0-2.8) Procalcitonin (<0.5) ng/mL Urine Color Yellow Urine Appearance Clear Urine pH 5.0 (4.5-8.0) Ur Specific [place] 1.015 (1.000-1.035) Urine Protein 1+ H (Negative) Urine Glucose (UA) Negative (Negative) g/dL Urine Ketones 1+ H (NEGATIVE) Urine Occult Blood Negative (Negative) Urine Nitrate Negative (Negative) Urine Bilirubin 1+ H (NEGATIVE) Ur Bilirubin Confirm (Negative) Urine Urobilinogen 1.0 (0.2) E.U./dL Ur Leukocyte Esterase Trace H (NEGATIVE) Urine RBC None seen (0-5/HPF) Urine WBC 5-10/hpf H (0-5/HPF) Amorphous Sediment 1+ Urine Bacteria Occasional (0-1) (None) Hyaline Casts 0-1/lpf (None) Urine Mucus 1+ H (Negative) Ur Culture Indicated? Specimen cultured A. baumannii (PCR) (Not Detect) Chlamy pneumoniae PCR (Not Detect) Adenovirus (PCR) (Not Detect) B. pertussis DNA (PCR) (Not Detecte) B.parapertussis DNA PCR (Not Detecte) Brenda albicans (PCR) (Not Detect) C. glabrata (PCR) (Not Detect) C. krusei (PCR) (Not Detect) C. parapsilosis (PCR) (Not Detect) C. tropicalis (PCR) (Not Detect) Coronavirus OC43 (PCR) (Not Detect) Coronavirus HKU1 (PCR) (Not Detect) Coronavirus 229E (PCR) (Not Detect) SARS-CoV-2 (PCR) (Not Detecte) Coronavirus NL63 (PCR) (Not Detect) Enterobacteriac sp PCR (Not Detect) E. cloacae complex PCR (Not Detect) Enterococcus sp PCR (Not Detect) E. coli (PCR) (Not Detect) H. influenzae (PCR) (Not Detect) Human Metapneumovir PCR (Not Detect) Influenza Type A (PCR) (Not Detect) Influenza Type B (PCR) (Not Detect) Klebsiella oxytoca PCR (Not Detect) Klebsiella pneumoniae (Not Detect) List. monocytogenes PCR (Not Detect) M. pneumoniae (PCR) (Not Detect) N. meningitidis (PCR) (Not Detect) Parainfluenza 1 (PCR) (Not Detect) Parainfluenza 2 (PCR) (Not Detect) Parainfluenza 3 (PCR) (Not Detect) Parainfluenza 4 (PCR) (Not Detect) Proteus species (PCR) (Not Detect) RSV (PCR) (Not Detect) Entero/Rhino (PCR) (Not Detect) Serratia marcescens PCR (Not Detect) Staphylococcus sp PCR (Not Detect) Staph aureus (PCR) (Not Detect) mecA-Methicil Res Gene Streptococcus sp PCR (Not Detect) Group A Strep (PCR) (Not Detect) Strep agalactiae (PCR) (Not Detect) Strep pneumoniae (PCR) (Not Detect) P. aeruginosa (PCR) (Not Detect) Minoo/B-Vanco Res Genes KPC-Carbap Res Gene PCR (Not Detect) Blood Type Antibody Screen Crossmatch 10/27/21 10/28/21 10/28/21 Range/Units 22:37 07:38 07:38 WBC 12.2 H (4.5-11.0) X10^3/uL RBC 2.66 L (4.5-5.9) X10^6/uL Hgb 6.5 L* 8.1 L (13.5-17.5) g/dL Hct 19.2 L* 24.0 L (41-53) % MCV 90.0 (80-100) fL MCH 30.6 (26-34) PG MCHC 34.0 (30-36) % RDW 14.9 H (11.6-14.8) % Plt Count 245 (150-400) X10^3/uL Neut % (Auto) 82.1 H (50-75) % Lymph % (Auto) 6.8 L (25-40) % Stark % (Auto) 10.8 (3-14) % Eos % (Auto) 0.0 L (2-4) % Baso % (Auto) 0.3 (0-2) % Neut # (Auto) 24645 H (5128-8857) /uL Lymph # (Auto) 800 L (9579-0812) /uL Stark # (Auto) 1300 H (0-900) /uL Eos # (Auto) 0 (0-450) /uL Baso # (Auto) 0 (0-100) /uL PT (10.1-12.7) SECONDS INR (0.9-1.3) APTT (26-36) SECONDS Sodium 133 L (137-145) mmol/L Potassium 4.5 (3.4-5.1) mmol/L Chloride 100 (98-107) mmol/L Carbon Dioxide 27 (22-32) mmol/L BUN 21 H (9-20) mg/dL Creatinine 0.90 (0.66-1.25) mg/dL Estimated GFR > 60 (>60) mL/min BUN/Creatinine Ratio 23.3 H (6-22) Glucose 115 H (80-110) mg/dL Lactate (0.7-2.1) mmol/L Calcium 7.9 L (8.4-10.2) mg/dL Total Bilirubin 1.3 (0.2-1.3) mg/dL AST 53 (17-59) IU/L ALT 109 H (<50) IU/L Alkaline Phosphatase 445 H (38-126) U/L Total Creatine Kinase (55-170) U/L CK-MB (CK-2) CK-MB (CK-2) Rel Index Troponin I (0.01-0.034) ng/mL Total Protein 6.0 L (6.3-8.2) g/dL Albumin 3.0 L (3.5-5.0) g/dL Globulin 3.0 (1.7-4.1) g/dL Albumin/Globulin Ratio 1.0 (1.0-2.8) Procalcitonin (<0.5) ng/mL Urine Color Urine Appearance Urine pH (4.5-8.0) Ur Specific [place] (1.000-1.035) Urine Protein (Negative) Urine Glucose (UA) (Negative) g/dL Urine Ketones (NEGATIVE) Urine Occult Blood (Negative) Urine Nitrate (Negative) Urine Bilirubin (NEGATIVE) Ur Bilirubin Confirm (Negative) Urine Urobilinogen (0.2) E.U./dL Ur Leukocyte Esterase (NEGATIVE) Urine RBC (0-5/HPF) Urine WBC (0-5/HPF) Amorphous Sediment Urine Bacteria (None) Hyaline Casts (None) Urine Mucus (Negative) Ur Culture Indicated? A. baumannii (PCR) (Not Detect) Chlamy pneumoniae PCR (Not Detect) Adenovirus (PCR) (Not Detect) B. pertussis DNA (PCR) (Not Detecte) B.parapertussis DNA PCR (Not Detecte) Brenda albicans (PCR) (Not Detect) C. glabrata (PCR) (Not Detect) C. krusei (PCR) (Not Detect) C. parapsilosis (PCR) (Not Detect) C. tropicalis (PCR) (Not Detect) Coronavirus OC43 (PCR) (Not Detect) Coronavirus HKU1 (PCR) (Not Detect) Coronavirus 229E (PCR) (Not Detect) SARS-CoV-2 (PCR) (Not Detecte) Coronavirus NL63 (PCR) (Not Detect) Enterobacteriac sp PCR (Not Detect) E. cloacae complex PCR (Not Detect) Enterococcus sp PCR (Not Detect) E. coli (PCR) (Not Detect) H. influenzae (PCR) (Not Detect) Human Metapneumovir PCR (Not Detect) Influenza Type A (PCR) (Not Detect) Influenza Type B (PCR) (Not Detect) Klebsiella oxytoca PCR (Not Detect) Klebsiella pneumoniae (Not Detect) List. monocytogenes PCR (Not Detect) M. pneumoniae (PCR) (Not Detect) N. meningitidis (PCR) (Not Detect) Parainfluenza 1 (PCR) (Not Detect) Parainfluenza 2 (PCR) (Not Detect) Parainfluenza 3 (PCR) (Not Detect) Parainfluenza 4 (PCR) (Not Detect) Proteus species (PCR) (Not Detect) RSV (PCR) (Not Detect) Entero/Rhino (PCR) (Not Detect) Serratia marcescens PCR (Not Detect) Staphylococcus sp PCR (Not Detect) Staph aureus (PCR) (Not Detect) mecA-Methicil Res Gene Streptococcus sp PCR (Not Detect) Group A Strep (PCR) (Not Detect) Strep agalactiae (PCR) (Not Detect) Strep pneumoniae (PCR) (Not Detect) P. aeruginosa (PCR) (Not Detect) Minoo/B-Vanco Res Genes KPC-Carbap Res Gene PCR (Not Detect) Blood Type Antibody Screen Crossmatch 10/28/21 Range/Units 20:03 WBC (4.5-11.0) X10^3/uL RBC (4.5-5.9) X10^6/uL Hgb 8.7 L (13.5-17.5) g/dL Hct 25.6 L (41-53) % MCV (80-100) fL MCH (26-34) PG MCHC (30-36) % RDW (11.6-14.8) % Plt Count (150-400) X10^3/uL Neut % (Auto) (50-75) % Lymph % (Auto) (25-40) % Stark % (Auto) (3-14) % Eos % (Auto) (2-4) % Baso % (Auto) (0-2) % Neut # (Auto) (1251-0914) /uL Lymph # (Auto) (2219-9333) /uL Stark # (Auto) (0-900) /uL Eos # (Auto) (0-450) /uL Baso # (Auto) (0-100) /uL PT (10.1-12.7) SECONDS INR (0.9-1.3) APTT (26-36) SECONDS Sodium (137-145) mmol/L Potassium (3.4-5.1) mmol/L Chloride (98-107) mmol/L Carbon Dioxide (22-32) mmol/L BUN (9-20) mg/dL Creatinine (0.66-1.25) mg/dL Estimated GFR (>60) mL/min BUN/Creatinine Ratio (6-22) Glucose (80-110) mg/dL Lactate (0.7-2.1) mmol/L Calcium (8.4-10.2) mg/dL Total Bilirubin (0.2-1.3) mg/dL AST (17-59) IU/L ALT (<50) IU/L Alkaline Phosphatase (38-126) U/L Total Creatine Kinase (55-170) U/L CK-MB (CK-2) CK-MB (CK-2) Rel Index Troponin I (0.01-0.034) ng/mL Total Protein (6.3-8.2) g/dL Albumin (3.5-5.0) g/dL Globulin (1.7-4.1) g/dL Albumin/Globulin Ratio (1.0-2.8) Procalcitonin (<0.5) ng/mL Urine Color Urine Appearance Urine pH (4.5-8.0) Ur Specific [place] (1.000-1.035) Urine Protein (Negative) Urine Glucose (UA) (Negative) g/dL Urine Ketones (NEGATIVE) Urine Occult Blood (Negative) Urine Nitrate (Negative) Urine Bilirubin (NEGATIVE) Ur Bilirubin Confirm (Negative) Urine Urobilinogen (0.2) E.U./dL Ur Leukocyte Esterase (NEGATIVE) Urine RBC (0-5/HPF) Urine WBC (0-5/HPF) Amorphous Sediment Urine Bacteria (None) Hyaline Casts (None) Urine Mucus (Negative) Ur Culture Indicated? A. baumannii (PCR) (Not Detect) Chlamy pneumoniae PCR (Not Detect) Adenovirus (PCR) (Not Detect) B. pertussis DNA (PCR) (Not Detecte) B.parapertussis DNA PCR (Not Detecte) Brenda albicans (PCR) (Not Detect) C. glabrata (PCR) (Not Detect) C. krusei (PCR) (Not Detect) C. parapsilosis (PCR) (Not Detect) C. tropicalis (PCR) (Not Detect) Coronavirus OC43 (PCR) (Not Detect) Coronavirus HKU1 (PCR) (Not Detect) Coronavirus 229E (PCR) (Not Detect) SARS-CoV-2 (PCR) (Not Detecte) Coronavirus NL63 (PCR) (Not Detect) Enterobacteriac sp PCR (Not Detect) E. cloacae complex PCR (Not Detect) Enterococcus sp PCR (Not Detect) E. coli (PCR) (Not Detect) H. influenzae (PCR) (Not Detect) Human Metapneumovir PCR (Not Detect) Influenza Type A (PCR) (Not Detect) Influenza Type B (PCR) (Not Detect) Klebsiella oxytoca PCR (Not Detect) Klebsiella pneumoniae (Not Detect) List. monocytogenes PCR (Not Detect) M. pneumoniae (PCR) (Not Detect) N. meningitidis (PCR) (Not Detect) Parainfluenza 1 (PCR) (Not Detect) Parainfluenza 2 (PCR) (Not Detect) Parainfluenza 3 (PCR) (Not Detect) Parainfluenza 4 (PCR) (Not Detect) Proteus species (PCR) (Not Detect) RSV (PCR) (Not Detect) Entero/Rhino (PCR) (Not Detect) Serratia marcescens PCR (Not Detect) Staphylococcus sp PCR (Not Detect) Staph aureus (PCR) (Not Detect) mecA-Methicil Res Gene Streptococcus sp PCR (Not Detect) Group A Strep (PCR) (Not Detect) Strep agalactiae (PCR) (Not Detect) Strep pneumoniae (PCR) (Not Detect) P. aeruginosa (PCR) (Not Detect) Minoo/B-Vanco Res Genes KPC-Carbap Res Gene PCR (Not Detect) Blood Type Antibody Screen Crossmatch Point of Care Testing Glucose POC 105 Urine Dip Bedside Urine Glucose Negative Bedside Urine Bilirubin + 1 Bedside Urine Ketone +/- 5 Urine Specific [place] 1.02 Bedside Urine Occult Blood - Negative Bedside Urine pH 6 Bedside Urine Protein +/- 15 Bedside Urine Urobilinogen +/- 1mg Bedside Urine Nitrite - Negative Bedside Urine Leukocytes - Negative Esterase Critical Care Time <Mami Medina DO - Last Filed: 10/29/21 01:52> Critical Care Time Critical Care Time: Yes Total Critical Care Time: 35 Attestation: The high probability of a clinically significant, sudden or life threatening deterioration of the [cardiovascular] system(s) required my full and direct attention, intervention and personal management. The aggregate critical care time was 35 minutes. This time is in addition to time spent performing reported procedures but includes the following: [x] Data Review and interpretation [x] Patient assessment and monitoring of vital signs [x] Documentation [x] Medication orders and management Discharge Plan Departure Patient Disposition: [facility] Clinical Impression: Acute upper gastrointestinal bleeding, Bacteremia, Shock Prescriptions: No Action omeprazole 20 mg tablet,delayed release (DR/EC) 20 mg PO DAILY Qty: 30 0RF Referrals: Eddie Ba MD [Primary Care Provider] -
[2021-10-27 19:24] LABS: Add Manual Diff / Slide Review NO; Basophils Absolute Auto 100 /uL (0-100); Eosinophils Absolute Auto 0 /uL (0-450); Eosinophils Percent Auto 0.2 % (2-4); Hematocrit 23.8 % (41-53); Hemoglobin 8.2 g/dL (13.5-17.5); Lymphocytes Absolute Auto 300 /uL (1100-4500); Lymphocytes Percent Auto 3.3 % (25-40); Mean Corpuscular HGB Conc 34.7 % (30-36); Mean Corpuscular Hemoglobin 31.5 PG (26-34); Mean Corpuscular Volume 90.9 fL (80-100); Monocytes Absolute Auto 900 /uL (0-900); Monocytes Percent Auto 9.3 % (3-14); Neutrophils Absolute Auto 8700 /uL (1500-7000); Neutrophils Percent Auto 86.2 % (50-75); Platelet Count 325 X10^3/uL (150-400); Red Blood Cell Count 2.62 X10^6/uL (4.5-5.9); Red Cell Distribution Width 14.6 % (11.6-14.8); White Blood Cell Count 10.1 X10^3/uL (4.5-11.0)
[2021-10-27 19:28] LABS: INR 1.2 (0.9-1.3); Prothrombin Time 13.8 SECONDS (10.1-12.7)
[2021-10-27 19:30] LABS: PTT Partial Thromboplastin Tim 27 SECONDS (26-36)
[2021-10-27 19:32] LABS: Creatine Kinase 39 U/L (55-170)
[2021-10-27 19:33] LABS: Lactate (Lactic Acid) 1.5 mmol/L (0.7-2.1)
[2021-10-27] MEDS: SODIUM CHLORIDE 0.9% 1,000 ML 1000 ML IV (19:33)
[2021-10-27 19:34] LABS: Alanine Aminotransferase 144 IU/L (<50); Albumin 3.9 g/dL (3.5-5.0); Albumin Globulin Ratio 1.1 (1.0-2.8); Alkaline Phosphatase 657 U/L (38-126); Aspartate Aminotransferase 91 IU/L (17-59); BUN Creatinine Ratio 28.2 (6-22); Bilirubin Total 0.9 mg/dL (0.2-1.3); Blood Urea Nitrogen 29 mg/dL (9-20); Carbon Dioxide 25 mmol/L (22-32); Chloride 94 mmol/L (98-107); Estimated Glomerular Filt Rate > 60 mL/min (>60); Globulin 3.4 g/dL (1.7-4.1); Glucose 139 mg/dL (80-110); HEMOLYSIS < 15 (0-50); Potassium 3.9 mmol/L (3.4-5.1); Sodium 131 mmol/L (137-145); Total Protein 7.3 g/dL (6.3-8.2)
[2021-10-27] MEDS: PANTOPRAZOLE 40 MG VIAL IV (19:34)
[2021-10-27 19:46] LABS: Troponin I < 0.012 ng/mL (0.01-0.034)
[2021-10-27 19:50] LABS: Procalcitonin 0.46 ng/mL (<0.5)
[2021-10-27] MEDS: PIPERACILLIN/TAZO 4.5 GM in SODIUM CHLORIDE 0.9% 100 ML IV (20:10)
[2021-10-27 20:12] LABS: Appearance Urine UA CLEAR; Bilirubin Urine UA 1+ (NEGATIVE); Color Urine UA YELLOW; Glucose Urine UA NEGATIVE (Negative); Ketones Urine UA 1+ (NEGATIVE); Leukocyte Esterase Urine UA TRACE (NEGATIVE); Nitrite Urine UA NEGATIVE (Negative); Occult Blood Urine UA NEGATIVE (Negative); Protein Urine UA 1+ (Negative); Specific Gravity Urine UA 1.015 (1.000-1.035)
[2021-10-27 20:22] LABS: Amorphous Sediment Urine 1+; Bacteria Urine Occasional (0-1); Culture Indicated Urine Specimen Cultured; Hyaline Casts Urine 0-1/LPF; Mucus Urine 1+ (Negative); RBC Urine None Seen (0-5/HPF); WBC Urine 5-10/HPF (0-5/HPF)
[2021-10-27 20:23] LABS: Ictotest Urine Negative (Negative)
--- NOTE | 2021-10-27 20:27 | DI.CT.S_ITS ---
PROCEDURE: CT ABDOMEN PELVIS W CON INDICATIONS: GI bleed, signet ring carcinoma TECHNIQUE: After the administration of IV contrast, axial sections were acquired from the lung bases to the pubic symphysis. Coronal and sagittal reformats were performed. For radiation dose reduction, the following was used: automated exposure control, adjustment of mA and/or kV according to patient size. COMPARISON: [facility], NM, NM PET CT FUSION SKULL 2 THIGH, 10/27/2021, 8:31. [facility], CT, CT CHEST ABD PEL W CON, 10/21/2021, 12:27. FINDINGS: Image quality: Excellent. Lung bases: There is near complete resolution of the clustered ground-glass nodule seen in the left lower lobe on the prior studies consistent with resolution of pneumonia. Heart: Heart is normal in size. There is mild fluid distention of the visualized distal esophagus again noted. ABDOMEN: Liver: No discrete hepatic mass lesion. Gallbladder: The gallbladder is distended with mild wall thickening. No calcified gallstones. Biliary ducts: There is intra and extrahepatic biliary ductal dilatation which appears increased compared to the recent prior CT. The common bile duct measures up to approximately 1.3 cm in diameter. This extends to the ampullary region where there is a loculated collection communicating with the descending portion of the duodenum. The findings again are suggestive of a duodenal diverticulum versus a contained perforation. Irregularity gastric and duodenal wall thickening is demonstrated in proximity to the ampulla. Pancreas: No pancreatic duct dilatation. No discrete pancreatic mass. Spleen: Normal in size. Adrenal Glands: No adrenal nodules. Kidneys and Ureters: No hydronephrosis. Stomach and Bowel: There is diffuse gastric wall thickening redemonstrated most prominent within the distal stomach with extension into the proximal duodenum. Findings are consistent with history of gastric cancer. Small and large bowel loops are normal in overall caliber. There is segmental irregular wall thickening along the distal ascending and proximal transverse colon centered at the hepatic flexure likely representing peritoneal metastases along the colonic wall. Mild segmental colonic wall thickening is also demonstrated in the sigmoid colon which may represent a mild colitis. There is colonic diverticulosis without acute diverticulitis. No evidence of bowel obstruction. Peritoneum: There is a small amount of intraperitoneal free fluid. No free air. There is irregular soft tissue infiltration of the omentum redemonstrated within the upper abdomen as well as in the mesentery along the stomach. Findings are consistent with peritoneal carcinomatosis. Ventral Wall: No hernia. Abdominal Nodes: No retroperitoneal or mesenteric adenopathy by size criteria. Vessels: Aorta and inferior vena cava are normal in size. PELVIS: Pelvic Organs: There is moderate enlargement of the prostate.. Bladder: There is mild concentric bladder wall thickening and trabeculation suggesting sequelae of chronic bladder outlet obstruction. There is a left bladder diverticulum again noted. Pelvic Nodes: No enlarged lymph nodes. Miscellaneous: No inguinal hernias are seen. Bones: Visualized osseous structures demonstrate no suspicious focal lesions. IMPRESSION: 1. Irregularly gastric and proximal duodenal wall thickening consistent with history of gastric carcinoma. 2. Irregular infiltrative soft tissue within the omentum and mesentery in the upper abdomen as well as irregular wall thickening along the colon centered at the hepatic flexure. The findings are consistent with peritoneal carcinomatosis. 3. Increased intra and extrahepatic biliary ductal dilatation extending to the ampulla again suggestive of biliary obstruction secondary to tumor infiltration of the ampulla. A loculated fluid collection in this region contiguous with the descending duodenum again likely represents a duodenal diverticulum and less likely a contained perforation. 4. Colonic diverticulosis without acute diverticulitis. Mild segmental wall thickening in the sigmoid colon is suggestive of a mild colitis. 5. Mild fluid distention of the visualized distal esophagus and proximal stomach likely reflects a degree of gastric outlet obstruction. Dictated by: Brice Strong M.D. on 10/27/2021 at 22:11 Approved by: Brice Strong M.D. on 10/27/2021 at 22:24
[2021-10-27] MEDS: ONDANSETRON 4 MG/2 ML INJ IV (20:42)
[2021-10-27] MEDS: SODIUM CHLORIDE 0.9% 2,177.25 ML 725.75 ML IV (20:44)
[2021-10-27 21:04] LABS: Adenovirus Not Detected (Not Detect); B. parapertussis Not Detected (Not Detecte); Bordetella pertussis Not Detected (Not Detecte); Chlamydophila pneumoniae Not Detected (Not Detect); Coronavirus 229E Not Detected (Not Detect); Coronavirus HKU1 Not Detected (Not Detect); Coronavirus NL 63 Not Detected (Not Detect); Coronavirus OC43 Not Detected (Not Detect); Human Metapneumovirus Not Detected (Not Detect); Human Rhinovirus/Enterovirus Not Detected (Not Detect); Influenza A Not Detected (Not Detect); Influenza B Not Detected (Not Detect); Mycoplasma pneumoniae Not Detected (Not Detect); Parainfluenza Virus 1 Not Detected (Not Detect); Parainfluenza Virus 2 Not Detected (Not Detect); Parainfluenza Virus 3 Not Detected (Not Detect); Parainfluenza Virus 4 Not Detected (Not Detect); Respiratory Syncytial Virus Not Detected (Not Detect); SARS- CoV-2 Not Detected (Not Detecte)
[2021-10-27 22:23] LABS: Lactate (Lactic Acid) 0.7 mmol/L (0.7-2.1)
[2021-10-27 22:36] LABS: Troponin I 0.014 ng/mL (0.01-0.034)
[2021-10-27 23:01] LABS: Hematocrit 19.2 % (41-53); Hemoglobin 6.5 g/dL (13.5-17.5)
[2021-10-28] VITALS (44 sets, daily range): BP systolic 89–140; BP diastolic 52–81; PULSE 61–82; RESP 7–22; TEMP 36.3–36.8; O2SAT 81–100
[2021-10-28 07:54] LABS: Add Manual Diff / Slide Review NO; Basophils Absolute Auto 0 /uL (0-100); Basophils Percent Auto 0.3 % (0-2); Eosinophils Absolute Auto 0 /uL (0-450); Hemoglobin 8.1 g/dL (13.5-17.5); Lymphocytes Absolute Auto 800 /uL (1100-4500); Lymphocytes Percent Auto 6.8 % (25-40); Mean Corpuscular Hemoglobin 30.6 PG (26-34); Monocytes Absolute Auto 1300 /uL (0-900); Monocytes Percent Auto 10.8 % (3-14); Neutrophils Absolute Auto 10000 /uL (1500-7000); Neutrophils Percent Auto 82.1 % (50-75); Platelet Count 245 X10^3/uL (150-400); Red Blood Cell Count 2.66 X10^6/uL (4.5-5.9); Red Cell Distribution Width 14.9 % (11.6-14.8); White Blood Cell Count 12.2 X10^3/uL (4.5-11.0)
[2021-10-28 07:58] LABS: Alanine Aminotransferase 109 IU/L (<50); Alkaline Phosphatase 445 U/L (38-126); Aspartate Aminotransferase 53 IU/L (17-59); BUN Creatinine Ratio 23.3 (6-22); Bilirubin Total 1.3 mg/dL (0.2-1.3); Blood Urea Nitrogen 21 mg/dL (9-20); Calcium 7.9 mg/dL (8.4-10.2); Carbon Dioxide 27 mmol/L (22-32); Chloride 100 mmol/L (98-107); Estimated Glomerular Filt Rate > 60 mL/min (>60); Glucose 115 mg/dL (80-110); HEMOLYSIS < 15 (0-50); Potassium 4.5 mmol/L (3.4-5.1); Sodium 133 mmol/L (137-145)
[2021-10-28 08:10] LABS: Acinetobacter baumannii Not Detected (Not Detect); E. coli Not Detected (Not Detect); Enterobacter cloacae complex Not Detected (Not Detect); Enterobacteriaceae species Detected (Not Detect); Enterococcus species Not Detected (Not Detect); Haemophilus influenzae Not Detected (Not Detect); KPC (carbapenem-resist gene) Not Detected (Not Detect); Listeria monocytogenes Not Detected (Not Detect); Neisseria meningitidis Not Detected (Not Detect); Proteus species Not Detected (Not Detect); Serratia marcescens Not Detected (Not Detect); Staphylococcus species Not Detected (Not Detect); Streptococcus agalactiae (Gr B Not Detected (Not Detect); Streptococcus pneumonia Not Detected (Not Detect); Streptococcus pyogenes (Gr A) Not Detected (Not Detect); Streptococcus species Not Detected (Not Detect)
[2021-10-28 08:11] LABS: Candida albicans Not Detected (Not Detect); Candida glabrata Not Detected (Not Detect); Candida krusei Not Detected (Not Detect); Candida parapsilosis Not Detected (Not Detect); Candida tropicalis Not Detected (Not Detect); Pseudomonas aeruginosa Not Detected (Not Detect)
[2021-10-28] MEDS: levoFLOXacin 500 MG/100 ML PIGGYBACK 100 MG IV (09:39)
--- NOTE | 2021-10-28 10:30 | PC.NURSE ---
pt reports 1 unmeasured void for previous shift
[2021-10-28] MEDS: FAMOTIDINE 20 MG/2 ML VIAL IV (12:49)
--- NOTE | 2021-10-28 17:07 | DI.RAD.S_ITS ---
PROCEDURE: XR CHEST 1V INDICATIONS: fever TECHNIQUE: One view of the chest was acquired. COMPARISON: [facility], CT, CT ABDOMEN PELVIS W CON, 10/27/2021, 20:39. [facility], CR, CHEST 2 VIEW, 02/19/2008, 16:26. FINDINGS: Surgical changes and devices: None. Lungs and pleura: Minimal interstitial opacities present at the left lung base. No lobar consolidation. No pleural effusion or pneumothorax. Mediastinum: Mediastinal contours appear normal. Heart size is normal. Bones and chest wall: No suspicious bony lesions. Overlying soft tissues appear unremarkable. IMPRESSION: Minimal interstitial opacities present at the left lung base. This could represent interstitial edema or viral or atypical infection in the appropriate clinical setting. Dictated by: Jose E Savage M.D. on 10/28/2021 at 18:21 Approved by: Jose E Savage M.D. on 10/28/2021 at 18:22
[2021-10-28] MEDS: DEXTROSE 5%-0.9% NS 1,000 ML 84 ML IV (17:38)
--- NOTE | 2021-10-28 19:38 | PC.NURSE ---
Introduced self to patient. He is alert, oriented and answering questions appropriately. Denies any pain or discomfort. Patient updated on plan of care. Will continue to monitor.
[2021-10-28 20:18] LABS: Hematocrit 25.6 % (41-53); Hemoglobin 8.7 g/dL (13.5-17.5)
[2021-10-29 01:37] VITALS: BP 159/80; PULSE 70; RESP 16; TEMP 36.9; O2SAT 95
== END 2021-10-29 01:37 | disposition short-term general hospital (02) ==
PROVIDERS: Emergency Provider Emergency Medicine; PCP Family Medicine
DX: K92.2 Gastrointestinal hemorrhage, unspecified (principal); R78.81 Bacteremia; R57.9 Shock, unspecified; C16.9 Malignant neoplasm of stomach, unspecified; R50.9 Fever, unspecified; Z20.822 Contact with and (suspected) exposure to COVID-19
CPT/HCPCS: 36415; 36430; 71045; 74177; 80053; 81001; 81003; 82550; 82962; 83605; 84145; 84484; 85014; 85018; 85025; 85610; 85730; 86850; 86900; 86901; 87040; 87077; 87086; 87150; 87186; 87633; 93005; 93010; 96361; 96365; 96367; 96375; 99285; 99291; P9016; C9113; J1956; J2405; J2543; Q9967

== ENCOUNTER → 2021-11-30 11:27 | Outpatient (ROUT) | payer MEDICARE, OTHER, SELFPAY ==
[2021-11-30 11:38] LABS: Add Manual Diff / Slide Review NO; Basophils Absolute Auto 400 /uL (0-100); Basophils Percent Auto 4.1 % (0-2); Eosinophils Absolute Auto 200 /uL (0-450); Eosinophils Percent Auto 2.1 % (2-4); Hemoglobin 8.1 g/dL (13.5-17.5); Lymphocytes Absolute Auto 700 /uL (1100-4500); Lymphocytes Percent Auto 7.3 % (25-40); Mean Corpuscular HGB Conc 33.9 % (30-36); Mean Corpuscular Hemoglobin 30.3 PG (26-34); Mean Corpuscular Volume 89.4 fL (80-100); Monocytes Absolute Auto 1000 /uL (0-900); Monocytes Percent Auto 11.1 % (3-14); Neutrophils Absolute Auto 7100 /uL (1500-7000); Neutrophils Percent Auto 75.4 % (50-75); Platelet Count 207 X10^3/uL (150-400); Red Blood Cell Count 2.68 X10^6/uL (4.5-5.9); Red Cell Distribution Width 17.2 % (11.6-14.8); White Blood Cell Count 9.5 X10^3/uL (4.5-11.0)
[2021-11-30 11:47] LABS: Alanine Aminotransferase 83 IU/L (<50); Albumin 2.2 g/dL (3.5-5.0); Albumin Globulin Ratio 0.6 (1.0-2.8); Alkaline Phosphatase 325 U/L (38-126); Aspartate Aminotransferase 69 IU/L (17-59); BUN Creatinine Ratio 33.8 (6-22); Bilirubin Conjugated 0.2 md/dL (0.0-0.3); Bilirubin Total 3.1 mg/dL (0.2-1.3); Bilirubin Unconjugated 0.6 mg/dL (0.0-1.1); Blood Urea Nitrogen 22 mg/dL (9-20); Calcium 7.8 mg/dL (8.4-10.2); Carbon Dioxide 28 mmol/L (22-32); Chloride 98 mmol/L (98-107); Estimated Glomerular Filt Rate > 60 mL/min (>60); Globulin 3.5 g/dL (1.7-4.1); Glucose 125 mg/dL (80-110); HEMOLYSIS < 15 (0-50); Phosphorous 3.9 mg/dL (2.3-3.7); Potassium 4.2 mmol/L (3.4-5.1); Sodium 133 mmol/L (137-145); Total Protein 5.7 g/dL (6.3-8.2); Triglycerides 135 mg/dL (35-150)
[2021-11-30 15:58] LABS: C-Reactive Protein Quant 3.5 mg/dL (<1.0)
== END ==
PROVIDERS: PCP Family Medicine
DX: C16.9 Malignant neoplasm of stomach, unspecified (principal); Z99.89 Dependence on other enabling machines and devices; R78.81 Bacteremia
CPT/HCPCS: 80048; 80076; 83735; 84100; 84478; 85025; 86140

== ENCOUNTER → 2021-12-07 16:13 | Outpatient (ROUT) | payer MEDICARE, OTHER, SELFPAY ==
[2021-12-07 16:32] LABS: Alanine Aminotransferase 76 IU/L (<50); Albumin 2.5 g/dL (3.5-5.0); Albumin Globulin Ratio 0.6 (1.0-2.8); Alkaline Phosphatase 371 U/L (38-126); Aspartate Aminotransferase 80 IU/L (17-59); BUN Creatinine Ratio 38.4 (6-22); Bilirubin Total 1.7 mg/dL (0.2-1.3); Bilirubin Unconjugated 0.5 mg/dL (0.0-1.1); Blood Urea Nitrogen 33 mg/dL (9-20); Calcium 8.2 mg/dL (8.4-10.2); Carbon Dioxide 29 mmol/L (22-32); Chloride 99 mmol/L (98-107); Estimated Glomerular Filt Rate > 60 mL/min (>60); Globulin 3.9 g/dL (1.7-4.1); Glucose 121 mg/dL (80-110); Magnesium 2.2 mg/dL (1.6-2.3); Phosphorous 3.8 mg/dL (2.3-3.7); Potassium 4.3 mmol/L (3.4-5.1); Sodium 133 mmol/L (137-145); Total Protein 6.4 g/dL (6.3-8.2); Triglycerides 96 mg/dL (35-150)
[2021-12-07 16:46] LABS: Add Manual Diff / Slide Review NO; Basophils Absolute Auto 100 /uL (0-100); Basophils Percent Auto 1.3 % (0-2); Eosinophils Absolute Auto 400 /uL (0-450); Eosinophils Percent Auto 3.4 % (2-4); Hematocrit 25.1 % (41-53); Hemoglobin 8.3 g/dL (13.5-17.5); Lymphocytes Absolute Auto 700 /uL (1100-4500); Mean Corpuscular HGB Conc 33.1 % (30-36); Mean Corpuscular Hemoglobin 30.2 PG (26-34); Mean Corpuscular Volume 91.2 fL (80-100); Monocytes Absolute Auto 1100 /uL (0-900); Monocytes Percent Auto 10.3 % (3-14); Neutrophils Absolute Auto 8100 /uL (1500-7000); Platelet Count 242 X10^3/uL (150-400); Red Blood Cell Count 2.75 X10^6/uL (4.5-5.9); Red Cell Distribution Width 17.3 % (11.6-14.8); White Blood Cell Count 10.4 X10^3/uL (4.5-11.0)
[2021-12-08 18:04] LABS: HEMOLYSIS < 15 (0-50)
== END ==
PROVIDERS: PCP Family Medicine; Visit Provider Family Medicine
DX: C16.9 Malignant neoplasm of stomach, unspecified (principal)
CPT/HCPCS: 80048; 80076; 83735; 84100; 84478; 85025

== ENCOUNTER → 2021-12-14 16:11 | Outpatient (ROUT) | payer MEDICARE, OTHER, SELFPAY ==
[2021-12-14 16:22] LABS: Add Manual Diff / Slide Review NO; Basophils Absolute Auto 100 /uL (0-100); Basophils Percent Auto 1.2 % (0-2); Eosinophils Absolute Auto 700 /uL (0-450); Hematocrit 27.1 % (41-53); Lymphocytes Absolute Auto 1000 /uL (1100-4500); Lymphocytes Percent Auto 9.8 % (25-40); Mean Corpuscular HGB Conc 33.3 % (30-36); Mean Corpuscular Hemoglobin 30.2 PG (26-34); Mean Corpuscular Volume 90.8 fL (80-100); Monocytes Absolute Auto 1100 /uL (0-900); Monocytes Percent Auto 11.1 % (3-14); Neutrophils Absolute Auto 6900 /uL (1500-7000); Neutrophils Percent Auto 70.9 % (50-75); Platelet Count 209 X10^3/uL (150-400); Red Blood Cell Count 2.98 X10^6/uL (4.5-5.9); Red Cell Distribution Width 16.7 % (11.6-14.8); White Blood Cell Count 9.8 X10^3/uL (4.5-11.0)
[2021-12-14 17:24] LABS: BUN Creatinine Ratio 35.4 (6-22); Blood Urea Nitrogen 35 mg/dL (9-20); Calcium 7.9 mg/dL (8.4-10.2); Carbon Dioxide 26 mmol/L (22-32); Chloride 102 mmol/L (98-107); Estimated Glomerular Filt Rate > 60 mL/min (>60); Glucose 92 mg/dL (80-110); HEMOLYSIS < 15 (0-50); Magnesium 1.9 mg/dL (1.6-2.3); Phosphorous 3.6 mg/dL (2.3-3.7); Potassium 4.2 mmol/L (3.4-5.1); Sodium 135 mmol/L (137-145); Triglycerides 118 mg/dL (35-150)
[2021-12-15 23:23] LABS: Alanine Aminotransferase 52 IU/L (<50); Albumin 2.3 g/dL (3.5-5.0); Albumin Globulin Ratio 0.7 (1.0-2.8); Alkaline Phosphatase 339 U/L (38-126); Aspartate Aminotransferase 40 IU/L (17-59); Bilirubin Total 1.2 mg/dL (0.2-1.3); Bilirubin Unconjugated 0.3 mg/dL (0.0-1.1); Globulin 3.4 g/dL (1.7-4.1); Total Protein 5.7 g/dL (6.3-8.2)
== END ==
PROVIDERS: PCP Family Medicine; Visit Provider Family Medicine
DX: C16.9 Malignant neoplasm of stomach, unspecified (principal)
CPT/HCPCS: 80048; 80076; 83735; 84100; 84478; 85025

== ENCOUNTER → 2021-12-21 13:31 | Outpatient (ROUT) | payer MEDICARE, OTHER, SELFPAY ==
[2021-12-21 13:41] LABS: Add Manual Diff / Slide Review NO; Basophils Absolute Auto 100 /uL (0-100); Eosinophils Absolute Auto 500 /uL (0-450); Eosinophils Percent Auto 5.9 % (2-4); Hematocrit 26.2 % (41-53); Hemoglobin 8.4 g/dL (13.5-17.5); Lymphocytes Absolute Auto 700 /uL (1100-4500); Lymphocytes Percent Auto 7.9 % (25-40); Mean Corpuscular Hemoglobin 30.4 PG (26-34); Mean Corpuscular Volume 95.2 fL (80-100); Monocytes Absolute Auto 900 /uL (0-900); Monocytes Percent Auto 9.7 % (3-14); Neutrophils Absolute Auto 6800 /uL (1500-7000); Neutrophils Percent Auto 75.5 % (50-75); Platelet Count 214 X10^3/uL (150-400); Red Blood Cell Count 2.76 X10^6/uL (4.5-5.9); Red Cell Distribution Width 17.2 % (11.6-14.8)
[2021-12-21 14:13] LABS: BUN Creatinine Ratio 25.5 (6-22); Blood Urea Nitrogen 28 mg/dL (9-20); Calcium 7.6 mg/dL (8.4-10.2); Carbon Dioxide 23 mmol/L (22-32); Chloride 93 mmol/L (98-107); Estimated Glomerular Filt Rate > 60 mL/min (>60); HEMOLYSIS < 15 (0-50); Magnesium 2.8 mg/dL (1.6-2.3); Phosphorous 6.1 mg/dL (2.3-3.7); Sodium 125 mmol/L (137-145); Triglycerides 95 mg/dL (35-150)
[2021-12-21 14:24] LABS: Glucose 707 mg/dL (80-110); Potassium 7.3 mmol/L (3.4-5.1)
== END ==
PROVIDERS: PCP Family Medicine; Visit Provider Family Medicine
DX: C16.9 Malignant neoplasm of stomach, unspecified (principal)
CPT/HCPCS: 80048; 83735; 84100; 84478; 85025

== ENCOUNTER 2021-12-21 15:10 | Emergency (ER) | payer MEDICARE, OTHER, SELFPAY ==
[2021-12-21 15:43] VITALS: BP 109/66; PULSE 123; RESP 16; TEMP 36.2; O2SAT 99; BMI 20.3
[2021-12-21 16:15] LABS: Alanine Aminotransferase 72 IU/L (<50); Albumin 2.8 g/dL (3.5-5.0); Albumin Globulin Ratio 0.7 (1.0-2.8); Alkaline Phosphatase 505 U/L (38-126); Aspartate Aminotransferase 68 IU/L (17-59); BUN Creatinine Ratio 36.5 (6-22); Bilirubin Total 1.1 mg/dL (0.2-1.3); Blood Urea Nitrogen 35 mg/dL (9-20); Calcium 8.3 mg/dL (8.4-10.2); Carbon Dioxide 25 mmol/L (22-32); Chloride 99 mmol/L (98-107); Estimated Glomerular Filt Rate > 60 mL/min (>60); Globulin 3.9 g/dL (1.7-4.1); Glucose 125 mg/dL (80-110); HEMOLYSIS < 15 (0-50); Potassium 4.5 mmol/L (3.4-5.1); Sodium 133 mmol/L (137-145); Total Protein 6.7 g/dL (6.3-8.2)
--- NOTE | 2021-12-21 19:25 | ED_ITS ---
HPI - Recheck/Abnormal Lab/Rx General Chief Complaint: Recheck/Abnormal Lab/Rx Stated Complaint: SENT LABS DONE TODAY RECHECK Source: patient Mode of arrival: Wheelchair Related Data Previous Rx's Medication Instructions Recorded omeprazole 20 mg tablet,delayed 20 mg PO DAILY #30 tabs 09/14/21 release Allergies Allergy/AdvReac Type Severity Reaction Status Date / Time No Known Drug Allergies Allergy Verified 12/21/21 15:43 Patient History Medical History (Updated 12/21/21 @ 16:58 by Gabrielle Babcock RN) Chicken pox Chronic back pain Depression Eczema Hearing loss Hyperlipidemia Iron (Fe) deficiency anemia Low testosterone Measles Mumps Shoulder pain Vitamin D deficiency Surgical History Anesthesia History of cataract removal with insertion of prosthetic lens (~09/2019) Undescended right testicle (~1959) [place] teeth extracted (~1979) Family History Father Hypertension Grandfather History of heart disease Grandmother Flu Social History household members: spouse Smoking Status: Former smoker alcohol intake: never Smoking Status: Former smoker Substance Use Type: does not use Exam Initial Vital Signs Initial Vital Signs: Vital Signs Temperature 97.2 F L 12/21/21 15:43 Pulse Rate 123 H 12/21/21 15:43 Respiratory Rate 16 12/21/21 15:43 Blood Pressure 109/66 12/21/21 15:43 Pulse Oximetry 99 12/21/21 15:43 Oxygen Delivery Method 12/21/21 15:43 Course Orders Ordered: ED Orders 12/21/21 15:53 CMP [Comprehensive Metabolic Panel] Stat Vital Signs Vital signs: Vital Signs - 8 hr 12/21/21 15:43 Temperature 97.2 F L Pulse Rate 123 H Respiratory Rate 16 Blood Pressure 109/66 Pulse Oximetry 99 Oxygen Delivery Method Room Air MDM - Recheck/Abnormal Lab/Rx Lab Data Result diagrams: 12/21/21 15:53 Labs: Lab Results 12/21/21 Range/Units 15:53 Sodium 133 L (137-145) mmol/L Potassium 4.5 D (3.4-5.1) mmol/L Chloride 99 (98-107) mmol/L Carbon Dioxide 25 (22-32) mmol/L BUN 35 H (9-20) mg/dL Creatinine 0.96 (0.66-1.25) mg/dL Estimated GFR > 60 (>60) mL/min BUN/Creatinine Ratio 36.5 H (6-22) Glucose 125 H D (80-110) mg/dL Calcium 8.3 L (8.4-10.2) mg/dL Total Bilirubin 1.1 (0.2-1.3) mg/dL AST 68 H (17-59) IU/L ALT 72 H (<50) IU/L Alkaline Phosphatase 505 H (38-126) U/L Total Protein 6.7 (6.3-8.2) g/dL Albumin 2.8 L (3.5-5.0) g/dL Globulin 3.9 (1.7-4.1) g/dL Albumin/Globulin Ratio 0.7 L (1.0-2.8) MDM Narrative Medical decision making narrative: Patient left without being seen but labs on repeat from earlier today are much more appropriate. Discharge Plan Departure Patient Disposition: Left Without Being Seen Clinical Impression: Patient left without being seen Prescriptions: No Action omeprazole 20 mg tablet,delayed release (DR/EC) 20 mg PO DAILY Qty: 30 0RF
== END 2021-12-21 16:58 | disposition left against medical advice (07) ==
PROVIDERS: Emergency Provider Emergency Medicine; PCP Family Medicine
DX: R79.9 Abnormal finding of blood chemistry, unspecified (principal); Z53.21 Procedure and treatment not carried out due to patient leaving prior to being seen by health care provider; C16.9 Malignant neoplasm of stomach, unspecified
CPT/HCPCS: 80048; 80053; 83735; 84100; 84478; 85025; 99281

== ENCOUNTER → 2021-12-28 15:30 | Outpatient (CLI) | payer MEDICARE, OTHER, SELFPAY ==
[2021-12-28 18:46] LABS: Add Manual Diff / Slide Review NO; Basophils Absolute Auto 0 /uL (0-100); Basophils Percent Auto 0.1 % (0-2); Eosinophils Absolute Auto 0 /uL (0-450); Hematocrit 26.4 % (41-53); Hemoglobin 8.9 g/dL (13.5-17.5); Lymphocytes Absolute Auto 200 /uL (1100-4500); Lymphocytes Percent Auto 1.7 % (25-40); Mean Corpuscular HGB Conc 33.7 % (30-36); Mean Corpuscular Hemoglobin 30.3 PG (26-34); Monocytes Absolute Auto 500 /uL (0-900); Monocytes Percent Auto 3.4 % (3-14); Neutrophils Absolute Auto 13000 /uL (1500-7000); Neutrophils Percent Auto 94.8 % (50-75); Platelet Count 208 X10^3/uL (150-400); Red Blood Cell Count 2.93 X10^6/uL (4.5-5.9); Red Cell Distribution Width 16.5 % (11.6-14.8); White Blood Cell Count 13.7 X10^3/uL (4.5-11.0)
[2021-12-28 19:09] LABS: Alanine Aminotransferase 64 IU/L (<50); Albumin 2.7 g/dL (3.5-5.0); Albumin Globulin Ratio 0.8 (1.0-2.8); Alkaline Phosphatase 505 U/L (38-126); Aspartate Aminotransferase 44 IU/L (17-59); BUN Creatinine Ratio 38.5 (6-22); Bilirubin Total 0.9 mg/dL (0.2-1.3); Blood Urea Nitrogen 35 mg/dL (9-20); Calcium 8.3 mg/dL (8.4-10.2); Carbon Dioxide 26 mmol/L (22-32); Chloride 96 mmol/L (98-107); Estimated Glomerular Filt Rate > 60 mL/min (>60); Globulin 3.5 g/dL (1.7-4.1); Glucose 133 mg/dL (80-110); HEMOLYSIS < 15 (0-50); Potassium 4.7 mmol/L (3.4-5.1); Sodium 131 mmol/L (137-145); Total Protein 6.2 g/dL (6.3-8.2); Triglycerides 89 mg/dL (35-150)
== END ==
PROVIDERS: PCP Family Medicine; Referring Provider Internal Medicine; Visit Provider Internal Medicine
DX: K31.5 Obstruction of duodenum (principal); C16.9 Malignant neoplasm of stomach, unspecified; R13.10 Dysphagia, unspecified; B95.1 Streptococcus, group B, as the cause of diseases classified elsewhere; K31.6 Fistula of stomach and duodenum
CPT/HCPCS: 80053; 83735; 84478; 85025

== ENCOUNTER → 2022-01-06 11:35 | Outpatient (ROUT) | payer MEDICARE, OTHER, SELFPAY ==
[2022-01-06 11:46] LABS: Add Manual Diff / Slide Review NO; Basophils Absolute Auto 0 /uL (0-100); Basophils Percent Auto 0.6 % (0-2); Eosinophils Absolute Auto 300 /uL (0-450); Hematocrit 25.3 % (41-53); Hemoglobin 8.3 g/dL (13.5-17.5); Lymphocytes Absolute Auto 400 /uL (1100-4500); Lymphocytes Percent Auto 8.3 % (25-40); Mean Corpuscular HGB Conc 32.9 % (30-36); Mean Corpuscular Hemoglobin 30.1 PG (26-34); Mean Corpuscular Volume 91.6 fL (80-100); Monocytes Absolute Auto 700 /uL (0-900); Neutrophils Absolute Auto 3600 /uL (1500-7000); Neutrophils Percent Auto 72.1 % (50-75); Platelet Count 115 X10^3/uL (150-400); Red Blood Cell Count 2.76 X10^6/uL (4.5-5.9); Red Cell Distribution Width 16.2 % (11.6-14.8)
[2022-01-06 12:25] LABS: BUN Creatinine Ratio 49.5 (6-22); Blood Urea Nitrogen 47 mg/dL (9-20); Carbon Dioxide 24 mmol/L (22-32); Chloride 100 mmol/L (98-107); Estimated Glomerular Filt Rate > 60 mL/min (>60); Glucose 118 mg/dL (80-110); HEMOLYSIS < 15 (0-50); Magnesium 2.1 mg/dL (1.6-2.3); Phosphorous 3.2 mg/dL (2.3-3.7); Potassium 4.3 mmol/L (3.4-5.1); Sodium 132 mmol/L (137-145); Triglycerides 62 mg/dL (35-150)
== END ==
PROVIDERS: PCP Family Medicine; Visit Provider Family Medicine
DX: C16.9 Malignant neoplasm of stomach, unspecified (principal)
CPT/HCPCS: 80048; 83735; 84100; 84478; 85025

== ENCOUNTER 2022-01-09 18:53 | Inpatient (IN) | payer MEDICARE, OTHER, SELFPAY ==
[2022-01-09 19:08] VITALS: BP 131/76; PULSE 108; RESP 22; TEMP 37.7; O2SAT 96; BMI 20.2
--- NOTE | 2022-01-09 19:08 | DI.RAD.S_ITS ---
PROCEDURE: XR CHEST 1V INDICATIONS: sob TECHNIQUE: One view of the chest was acquired. COMPARISON: [facility], CR, XR CHEST 1V, 10/28/2021, 17:12. FINDINGS: Surgical changes and devices: Right PICC is seen with tip projecting over the superior cavoatrial junction. Right-sided Port-A-Cath is also seen with tip projecting over the superior cavoatrial junction. Lungs and pleura: Small right pleural effusion is new when compared to the prior exam, with atelectasis of the right lower lobe. Left lung is clear. No pneumothorax. Linear lucency projecting over the right lung apex is most likely a skin fold. Mediastinum: Mediastinal contours appear normal. Heart size is normal. Bones and chest wall: No suspicious bony lesions. Overlying soft tissues appear unremarkable. IMPRESSION: Small right pleural effusion with atelectasis of the right lung base. Left lung is clear. Approved by: Jose E Ramirez M.D. on 01/09/2022 at 19:29
[2022-01-09 19:29] VITALS: BP 124/78; PULSE 108; RESP 22; TEMP 37.7; O2SAT 97
--- NOTE | 2022-01-09 19:32 | ED_ITS ---
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 He typically gets around with a walker without any difficulty. He has developed a rash over the past a week or so as well. He was doing well yesterday however today he is significantly short of breath with exertion. He denies any fever. But definitely short of breath with exertion is. He has no nausea. He is on continuous TPN. Is trying to get chemotherapy transferred up here but with started at [facility]. He denies any pain. Denies any peripheral edema he has an all over body rash non painful or pruritic. Related Data Home Medications Medication Instructions Recorded Confirmed ondansetron 8 mg disintegrating 8 mg PO Q4H PRN nasuea or vomiting 01/10/22 01/10/22 tablet pantoprazole 40 mg tablet,delayed 40 mg PO BID 01/10/22 01/10/22 release Previous Rx's Medication Instructions Recorded citalopram 10 mg tablet 10 mg PO DAILY #90 tabs 12/23/21 promethazine 6.25 mg/5 mL oral 12.5 mg (10 mL) PO Q4-6H PRN 01/13/22 syrup nausea and vomiting #473 mL lorazepam 1 mg tablet (Ativan) 1 mg PO TID PRN anxiety #30 tabs 01/14/22 morphine 20 mg/5 mL (4 mg/mL) oral 10 mg (2.5 mL) PO Q4H PRN pain 01/14/22 solution #100 mL Allergies Allergy/AdvReac Type Severity Reaction Status Date / Time No Known Drug Allergies Allergy Verified 12/21/21 15:43 Review of Systems Review of Systems Narrative: GENERAL: Denies chills, fatigue, malaise, fever, sweats, travel HEENT: Denies sinus pain, ear pain, sore throat, difficulty swallowing, neck pain RESPIRATORY: See HPI CARDIOVASCULAR: Denies chest pain, palpitations, orthopnea, edema GASTROINTESTINAL: Denies nausea, vomiting, abdominal pain, diarrhea, consti pation, melena. : Denies dysuria, frequency, incontinence, hematuria, urinary retention, flank pain. MUSCULOSKELETAL: Denies weakness, joint pain, or bony pain SKIN: No rash, no erythema, no pruritus NEUROLOGIC: Denies weakness, dizziness, headache, numbness, change in speech, confusion PSYCHIATRIC: No concerning psychosocial issues. 12 point review of systems is negative except for those stated above and HPI Patient History Medical History Chicken pox Chronic back pain Depression Eczema Hearing loss Hyperlipidemia Iron (Fe) deficiency anemia Low testosterone Measles Mumps Shoulder pain Vitamin D deficiency Surgical History Anesthesia History of cataract removal with insertion of prosthetic lens (~09/2019) Undescended right testicle (~1960) [place] teeth extracted (~1980) Family History Father Hypertension Grandfather History of heart disease Grandmother Flu Social History household members: spouse Smoking Status: Former smoker alcohol intake: former Smoking Status: Former smoker Substance Use Type: does not use Exam Initial Vital Signs Initial Vital Signs: Vital Signs Temperature 99.9 F H 01/09/22 19:08 Pulse Rate 108 H 01/09/22 19:08 Respiratory Rate 22 01/09/22 19:08 Blood Pressure 131/76 01/09/22 19:08 Pulse Oximetry 96 01/09/22 19:08 Oxygen Delivery Method 01/09/22 19:08 GENERAL: Alert pleasant week 76-year-old male HEENT: Head atraumatic,EOMI, pupils reactive, face symmetric, [moist] mucous membranes CARDIOVASCULAR: Regular rate and rhythm without murmurs, rubs or gallops. RESPIRATORY: Breath sounds equal bilaterally, no wheezes rales or rhonchi. ABDOMEN: Soft, nontender. Normoactive bowel sounds all 4 quadrants. No guarding or rebound. EXTREMITIES: Normal range of motion, no clubbing or edema. Neurovascularly intact. PICC line placed in right arm NEUROLOGICAL: Alert and oriented x4.Normal gait and speech. SKIN: Erythematous rash on torso and upper extremities non blanchable his skin appears dry no petechiae no fluctuation no vesicles Course Orders Ordered: Discontinued Medications Acetaminophen (Acetaminophen 650 Mg Supp) 650 mg TN Q6HR PRN PRN Reason: Fever/Mild Pain (1-3) Acetaminophen (Acetaminophen 325 Mg Tablet) 650 mg PO Q4H PRN PRN Reason: Fever/Mild Pain (1-3) Last Admin: 01/10/22 22:28 Dose: 650 mg Documented By: URSULA Bisacodyl (Bisacodyl 10 Mg Supp) 10 mg TN DAILY PRN PRN Reason: Constipation Citalopram Hydrobromide (Citalopram 10 Mg Tablet) 10 mg PO DAILY COUNTS INCLUDE 234 BEDS AT THE [facility] Last Admin: 01/13/22 10:19 Dose: Not Given Documented By: Admin: 01/12/22 10:38 Dose: 10 mg Documented By: Admin: 01/11/22 10:25 Dose: Not Given Documented By: FAITH Furosemide (Furosemide 40 Mg/4 Ml Vial) 20 mg IV NOW ONE Stop: 01/09/22 22:38 Last Admin: 01/09/22 23:19 Dose: 20 mg Documented By: KAMERON Glycopyrrolate (Glycopyrrolate 0.4 Mg/2 Ml Vial) 0.4 mg IV Q6H PRN PRN Reason: secretions Heparin Sodium (Porcine) (Heparin 5,000 Unit/Ml Vial) 5,000 unit SUBCUT BID COUNTS INCLUDE 234 BEDS AT THE [facility] Last Admin: 01/13/22 10:19 Dose: Not Given Documented By: Admin: 01/12/22 20:08 Dose: 5,000 unit Documented By: Admin: 01/12/22 10:39 Dose: Not Given Documented By: Admin: 01/11/22 21:00 Dose: Not Given Documented By: URSULA Hydromorphone HCl (Hydromorphone 0.5 Mg Inj) 0.5 mg IV Q4H PRN PRN Reason: Pain, Moderate (4-6) Sodium Chloride (Normal Saline 0.9%) 1,000 mls @ 1,000 mls/hr IV BOLUS ONE Stop: 01/10/22 02:52 Last Infusion: 01/10/22 03:05 Dose: 0 mls/hr Documented By: Admin: 01/10/22 02:05 Dose: 1,000 mls/hr Documented By: KAMERON Sodium Chloride (Normal Saline 0.9%) 1,000 mls @ 150 mls/hr IV CONT MOSHE Last Infusion: 01/10/22 14:23 Dose: 0 mls/hr Documented By: Admin: 01/10/22 09:00 Dose: 150 mls/hr Documented By: GARRET Piperacillin Sod/Tazobactam (Sod 4.5 gm/ Sodium Chloride) 100 mls @ 200 mls/hr IV NOW ONE Stop: 01/10/22 08:26 Last Infusion: 01/10/22 09:55 Dose: 0 mls/hr Documented By: Admin: 01/10/22 09:04 Dose: 200 mls/hr Documented By: GARRET Multivitamins 10 ml/ Chromium/Copper/Manganese/Seleni/Zn 1 ml/ Amino Acids/Electrolytes 2,011 mls @ 83.792 mls/hr IV 1800 MOSHE Stop: 01/11/22 17:59 Last Infusion: 01/11/22 19:42 Dose: 0 mls/hr Documented By: Admin: 01/10/22 18:23 Dose: 83.792 mls/hr Documented By: JOY Fat Emulsion Intravenous (Clinolipid 20%) 50 gm in 250 mls @ 25 mls/hr IV [id number] MOSHE Stop: 01/13/22 03:59 Last Admin: 01/12/22 17:43 Dose: 25 mls/hr Documented By: CHAY Piperacillin Sod/Tazobactam (Sod 3.375 gm/ Sodium Chloride) 100 mls @ 25 mls/hr IV Q8H COUNTS INCLUDE 234 BEDS AT THE [facility] Last Admin: 01/12/22 10:04 Dose: Not Given Documented By: Infusion: 01/12/22 06:46 Dose: 0 mls/hr Documented By: Admin: 01/12/22 00:44 Dose: 25 mls/hr Documented By: Infusion: 01/11/22 23:02 Dose: 0 mls/hr Documented By: Admin: 01/11/22 17:37 Dose: 25 mls/hr Documented By: Infusion: 01/11/22 14:07 Dose: 25 mls/hr Documented By: Admin: 01/11/22 10:07 Dose: 25 mls/hr Documented By: Infusion: 01/11/22 06:18 Dose: 0 mls/hr Documented By: Admin: 01/11/22 01:10 Dose: 25 mls/hr Documented By: Infusion: 01/10/22 22:28 Dose: 0 mls/hr Documented By: Admin: 01/10/22 17:49 Dose: 25 mls/hr Documented By: HARDEEP Sodium Chloride (Normal Saline 0.9%) 1,000 mls @ 100 mls/hr IV CONT MOSHE Stop: 01/11/22 21:29 Last Admin: 01/11/22 21:28 Dose: 100 mls/hr Documented By: Infusion: 01/11/22 20:45 Dose: 0 mls/hr Documented By: Admin: 01/11/22 10:45 Dose: 100 mls/hr Documented By: FAITH Multivitamins 10 ml/ Chromium/Copper/Manganese/Seleni/Zn 1 ml/ Amino Acids/Electrolytes 2,011 mls @ 83.792 mls/hr IV 1800 MOSHE Stop: 01/12/22 17:59 Last Infusion: 01/12/22 17:52 Dose: 0 mls/hr Documented By: Admin: 01/11/22 17:36 Dose: 83.792 mls/hr Documented By: FAITH Multivitamins 10 ml/ Chromium/Copper/Manganese/Seleni/Zn 1 ml/ Amino Acids/Electrolytes 2,011 mls @ 83.792 mls/hr IV 1800 MOSHE Stop: 01/13/22 17:59 Last Admin: 01/12/22 17:43 Dose: 83.792 mls/hr Documented By: CHAY Ketorolac Tromethamine (Ketorolac 30 Mg/Ml Vial) 15 mg IV NOW ONE Stop: 01/10/22 01:54 Last Admin: 01/10/22 02:05 Dose: 15 mg Documented By: KAMERON Lorazepam (Lorazepam 2 Mg/Ml Inj) 0.5 mg IV NOW ONE Stop: 01/11/22 03:35 Last Admin: 01/11/22 04:11 Dose: 0.5 mg Documented By: URSULA Lorazepam (Lorazepam 2 Mg/Ml Inj) 1 mg IV Q1HR PRN PRN Reason: Agitation/Anxiety Last Admin: 01/11/22 21:28 Dose: 1 mg Documented By: URSULA Lorazepam (Lorazepam 2 Mg/Ml Inj) 1 mg IV Q4HR PRN PRN Reason: Nausea Last Admin: 01/12/22 20:09 Dose: 1 mg Documented By: MARIO Metoclopramide HCl (Metoclopramide 10 Mg/2 Ml Inj) 10 mg IV NOW ONE Stop: 01/10/22 08:46 Last Admin: 01/10/22 09:00 Dose: 10 mg Documented By: GARRET Morphine Sulfate (Morphine 2 Mg/Ml Inj) 2 mg IV Q2HR COUNTS INCLUDE 234 BEDS AT THE [facility] Last Admin: 01/11/22 17:26 Dose: Not Given Documented By: TLS Morphine Sulfate (Morphine 2 Mg/Ml Inj) 2 mg IV Q2HR PRN PRN Reason: Pain, Moderate (4-6) Last Admin: 01/13/22 14:56 Dose: 2 mg Documented By: Admin: 01/13/22 08:53 Dose: 2 mg Documented By: HARDEEP Naloxone HCl (Naloxone 0.4 Mg/Ml Vial) 0.2 mg IV Q2MIN PRN PRN Reason: Opiate Reversal Ondansetron HCl (Ondansetron 4 Mg/2 Ml Inj) 4 mg IV NOW ONE Stop: 01/10/22 06:26 Last Admin: 01/10/22 06:34 Dose: 4 mg Documented By: KAMERON Ondansetron HCl (Ondansetron 4 Mg/2 Ml Inj) 4 mg IV Q6HR PRN PRN Reason: Nausea And Vomiting Last Admin: 01/11/22 01:10 Dose: 4 mg Documented By: Admin: 01/10/22 17:40 Dose: 4 mg Documented By: HARDEEP Ondansetron HCl (Ondansetron 4 Mg Odt) 8 mg PO Q4H PRN PRN Reason: nasuea or vomiting Oxycodone HCl (Oxycodone Ir 5 Mg Tablet) 5 mg PO Q6H PRN PRN Reason: Pain (Scale Score 4-6) Pantoprazole Sodium (Pantoprazole Dr 40 Mg Tablet) 40 mg PO BID COUNTS INCLUDE 234 BEDS AT [facility] Last Admin: 01/11/22 10:24 Dose: Not Given Documented By: Admin: 01/10/22 20:42 Dose: 40 mg Documented By: JOY Pantoprazole Sodium (Pantoprazole 40 Mg Vial) 40 mg IV BID COUNTS INCLUDE 234 BEDS AT [facility] Last Admin: 01/13/22 10:20 Dose: Not Given Documented By: Admin: 01/12/22 20:09 Dose: 40 mg Documented By: Admin: 01/12/22 10:38 Dose: 40 mg Documented By: Admin: 01/11/22 20:59 Dose: 40 mg Documented By: URSULA Polyethylene Glycol (Polyethylene Glycol 3350 17 Gm Powd.Pack) 17 gm PO DAILY COUNTS INCLUDE 234 BEDS AT [facility] Last Admin: 01/11/22 17:26 Dose: Not Given Documented By: JOY Prochlorperazine (Prochlorperazine 10 Mg/2 Ml Vial) 10 mg IV Q6HR PRN PRN Reason: Nausea Sennosides (Sennosides 8.6 Mg Tablet) 8.6 mg PO BID COUNTS INCLUDE 234 BEDS AT [facility] Last Admin: 01/13/22 10:20 Dose: Not Given Documented By: Admin: 01/12/22 20:09 Dose: Not Given Documented By: Admin: 01/12/22 10:38 Dose: 8.6 mg Documented By: Admin: 01/11/22 19:37 Dose: Not Given Documented By: Admin: 01/11/22 15:53 Dose: Not Given Documented By: ERIKF Vital Signs Vital signs: Vital Signs - 8 hr 01/10/22 02:05 01/10/22 03:15 01/10/22 02:17 Temperature 100.3 F H 99.0 F 100.4 F H Pulse Rate 98 H Respiratory Rate 18 Blood Pressure 114/62 Pulse Oximetry 97 Oxygen Delivery Method Room Air 01/10/22 04:17 Temperature 99.7 F H Pulse Rate 94 H Respiratory Rate 18 Blood Pressure 114/66 Pulse Oximetry 98 Oxygen Delivery Method MDM - SOB/Dyspnea Lab Data Result diagrams: 01/13/22 07:01 01/13/22 07:01 Labs: Lab Results 01/09/22 01/09/22 01/09/22 Range/Units 19:35 20:04 20:04 WBC 3.6 L (4.5-11.0) X10^3/uL RBC 2.98 L (4.5-5.9) X10^6/uL Hgb 9.0 L (13.5-17.5) g/dL Hct 26.9 L (41-53) % MCV 90.3 (80-100) fL MCH 30.2 (26-34) PG MCHC 33.4 (30-36) % RDW 16.7 H (11.6-14.8) % Plt Count 167 (150-400) X10^3/uL Neut % (Auto) 69.8 (50-75) % Lymph % (Auto) 12.8 L (25-40) % [place] % (Auto) 11.5 (3-14) % Eos % (Auto) 5.3 H (2-4) % Baso % (Auto) 0.6 (0-2) % Neut # (Auto) 2500 (6732-4725) /uL Lymph # (Auto) 500 L (0077-7383) /uL [place] # (Auto) 400 (0-900) /uL Eos # (Auto) 200 (0-450) /uL Baso # (Auto) 0 (0-100) /uL PT 14.8 H (10.1-12.7) SECONDS INR 1.3 (0.9-1.3) APTT 27 (26-36) SECONDS Sodium (137-145) mmol/L Potassium (3.4-5.1) mmol/L Chloride (98-107) mmol/L Carbon Dioxide (22-32) mmol/L BUN (9-20) mg/dL Creatinine (0.66-1.25) mg/dL Estimated GFR (>60) mL/min BUN/Creatinine Ratio (6-22) Glucose (80-110) mg/dL Lactate (0.7-2.1) mmol/L Calcium (8.4-10.2) mg/dL Magnesium (1.6-2.3) mg/dL Total Bilirubin (0.2-1.3) mg/dL AST (17-59) IU/L ALT (<50) IU/L Alkaline Phosphatase (38-126) U/L Total Creatine Kinase (55-170) U/L CK-MB (CK-2) CK-MB (CK-2) Rel Index Troponin I (0.01-0.034) ng/mL NT-Pro-B Natriuret Pep (<450) pg/mL Total Protein (6.3-8.2) g/dL Albumin (3.5-5.0) g/dL Globulin (1.7-4.1) g/dL Albumin/Globulin Ratio (1.0-2.8) Procalcitonin (<0.5) ng/mL Urine Color Urine Appearance Urine pH (4.5-8.0) Ur Specific [place] (1.000-1.035) Urine Protein (Negative) Urine Glucose (UA) (Negative) g/dL Urine Ketones (NEGATIVE) Urine Occult Blood (Negative) Urine Nitrate (Negative) Urine Bilirubin (NEGATIVE) Urine Urobilinogen (0.2) E.U./dL Ur Leukocyte Esterase (NEGATIVE) Urine RBC (0-5/HPF) Urine WBC (0-5/HPF) Urine Bacteria (None) Ur Culture Indicated? Micro UA Comment Chlamy pneumoniae PCR Not detected (Not Detect) Adenovirus (PCR) Not detected (Not Detect) B. pertussis DNA (PCR) Not detected (Not Detecte) B.parapertussis DNA PCR Not detected (Not Detecte) Coronavirus OC43 (PCR) Not detected (Not Detect) Coronavirus HKU1 (PCR) Not detected (Not Detect) Coronavirus 229E (PCR) Not detected (Not Detect) SARS-CoV-2 (PCR) Not detected (Not Detecte) Coronavirus NL63 (PCR) Not detected (Not Detect) Human Metapneumovir PCR Not detected (Not Detect) Influenza Type A (PCR) Not detected (Not Detect) Influenza Type B (PCR) Not detected (Not Detect) M. pneumoniae (PCR) Not detected (Not Detect) Parainfluenza 1 (PCR) Not detected (Not Detect) Parainfluenza 2 (PCR) Not detected (Not Detect) Parainfluenza 3 (PCR) Not detected (Not Detect) Parainfluenza 4 (PCR) Not detected (Not Detect) RSV (PCR) Not detected (Not Detect) Entero/Rhino (PCR) Not detected (Not Detect) 01/09/22 01/09/22 01/09/22 Range/Units 20:04 20:04 23:25 WBC (4.5-11.0) X10^3/uL RBC (4.5-5.9) X10^6/uL Hgb (13.5-17.5) g/dL Hct (41-53) % MCV (80-100) fL MCH (26-34) PG MCHC (30-36) % RDW (11.6-14.8) % Plt Count (150-400) X10^3/uL Neut % (Auto) (50-75) % Lymph % (Auto) (25-40) % [place] % (Auto) (3-14) % Eos % (Auto) (2-4) % Baso % (Auto) (0-2) % Neut # (Auto) (1737-3209) /uL Lymph # (Auto) (1759-6691) /uL [place] # (Auto) (0-900) /uL Eos # (Auto) (0-450) /uL Baso # (Auto) (0-100) /uL PT (10.1-12.7) SECONDS INR (0.9-1.3) APTT (26-36) SECONDS Sodium 132 L (137-145) mmol/L Potassium 4.2 (3.4-5.1) mmol/L Chloride 102 (98-107) mmol/L Carbon Dioxide 24 (22-32) mmol/L BUN 50 H (9-20) mg/dL Creatinine 1.15 (0.66-1.25) mg/dL Estimated GFR > 60 (>60) mL/min BUN/Creatinine Ratio 43.5 H (6-22) Glucose 142 H (80-110) mg/dL Lactate 2.2 H 3.0 H (0.7-2.1) mmol/L Calcium 8.2 L (8.4-10.2) mg/dL Magnesium (1.6-2.3) mg/dL Total Bilirubin 0.9 (0.2-1.3) mg/dL AST 27 (17-59) IU/L ALT 31 (<50) IU/L Alkaline Phosphatase 175 H (38-126) U/L Total Creatine Kinase 21 L (55-170) U/L CK-MB (CK-2) TNP CK-MB (CK-2) Rel Index TNP Troponin I 0.016 (0.01-0.034) ng/mL NT-Pro-B Natriuret Pep 492 H (<450) pg/mL Total Protein 5.2 L (6.3-8.2) g/dL Albumin 2.3 L (3.5-5.0) g/dL Globulin 2.9 (1.7-4.1) g/dL Albumin/Globulin Ratio 0.8 L (1.0-2.8) Procalcitonin 0.28 (<0.5) ng/mL Urine Color Urine Appearance Urine pH (4.5-8.0) Ur Specific [place] (1.000-1.035) Urine Protein (Negative) Urine Glucose (UA) (Negative) g/dL Urine Ketones (NEGATIVE) Urine Occult Blood (Negative) Urine Nitrate (Negative) Urine Bilirubin (NEGATIVE) Urine Urobilinogen (0.2) E.U./dL Ur Leukocyte Esterase (NEGATIVE) Urine RBC (0-5/HPF) Urine WBC (0-5/HPF) Urine Bacteria (None) Ur Culture Indicated? Micro UA Comment Chlamy pneumoniae PCR (Not Detect) Adenovirus (PCR) (Not Detect) B. pertussis DNA (PCR) (Not Detecte) B.parapertussis DNA PCR (Not Detecte) Coronavirus OC43 (PCR) (Not Detect) Coronavirus HKU1 (PCR) (Not Detect) Coronavirus 229E (PCR) (Not Detect) SARS-CoV-2 (PCR) (Not Detecte) Coronavirus NL63 (PCR) (Not Detect) Human Metapneumovir PCR (Not Detect) Influenza Type A (PCR) (Not Detect) Influenza Type B (PCR) (Not Detect) M. pneumoniae (PCR) (Not Detect) Parainfluenza 1 (PCR) (Not Detect) Parainfluenza 2 (PCR) (Not Detect) Parainfluenza 3 (PCR) (Not Detect) Parainfluenza 4 (PCR) (Not Detect) RSV (PCR) (Not Detect) Entero/Rhino (PCR) (Not Detect) 01/10/22 01/10/22 01/10/22 Range/Units 08:40 08:50 08:50 WBC 4.1 L (4.5-11.0) X10^3/uL RBC 3.24 L (4.5-5.9) X10^6/uL Hgb 9.8 L (13.5-17.5) g/dL Hct 29.5 L (41-53) % MCV 90.9 (80-100) fL MCH 30.3 (26-34) PG MCHC 33.4 (30-36) % RDW 16.2 H (11.6-14.8) % Plt Count 156 (150-400) X10^3/uL Neut % (Auto) 61.8 (50-75) % Lymph % (Auto) 14.1 L (25-40) % [place] % (Auto) 15.7 H (3-14) % Eos % (Auto) 7.4 H (2-4) % Baso % (Auto) 1.0 (0-2) % Neut # (Auto) 2500 (4484-9709) /uL Lymph # (Auto) 600 L (9800-5345) /uL [place] # (Auto) 600 (0-900) /uL Eos # (Auto) 300 (0-450) /uL Baso # (Auto) 0 (0-100) /uL PT (10.1-12.7) SECONDS INR (0.9-1.3) APTT (26-36) SECONDS Sodium (137-145) mmol/L Potassium (3.4-5.1) mmol/L Chloride (98-107) mmol/L Carbon Dioxide (22-32) mmol/L BUN (9-20) mg/dL Creatinine (0.66-1.25) mg/dL Estimated GFR (>60) mL/min BUN/Creatinine Ratio (6-22) Glucose (80-110) mg/dL Lactate 1.8 (0.7-2.1) mmol/L Calcium (8.4-10.2) mg/dL Magnesium (1.6-2.3) mg/dL Total Bilirubin (0.2-1.3) mg/dL AST (17-59) IU/L ALT (<50) IU/L Alkaline Phosphatase (38-126) U/L Total Creatine Kinase (55-170) U/L CK-MB (CK-2) CK-MB (CK-2) Rel Index Troponin I (0.01-0.034) ng/mL NT-Pro-B Natriuret Pep (<450) pg/mL Total Protein (6.3-8.2) g/dL Albumin (3.5-5.0) g/dL Globulin (1.7-4.1) g/dL Albumin/Globulin Ratio (1.0-2.8) Procalcitonin (<0.5) ng/mL Urine Color Yellow Urine Appearance Clear Urine pH 5.0 (4.5-8.0) Ur Specific [place] 1.010 (1.000-1.035) Urine Protein Trace H (Negative) Urine Glucose (UA) Negative (Negative) g/dL Urine Ketones Negative (NEGATIVE) Urine Occult Blood Negative (Negative) Urine Nitrate Negative (Negative) Urine Bilirubin Negative (NEGATIVE) Urine Urobilinogen 0.2 (0.2) E.U./dL Ur Leukocyte Esterase Negative (NEGATIVE) Urine RBC None seen (0-5/HPF) Urine WBC None seen (0-5/HPF) Urine Bacteria None seen (None) Ur Culture Indicated? Cult not indicated Micro UA Comment Microscopic normal Chlamy pneumoniae PCR (Not Detect) Adenovirus (PCR) (Not Detect) B. pertussis DNA (PCR) (Not Detecte) B.parapertussis DNA PCR (Not Detecte) Coronavirus OC43 (PCR) (Not Detect) Coronavirus HKU1 (PCR) (Not Detect) Coronavirus 229E (PCR) (Not Detect) SARS-CoV-2 (PCR) (Not Detecte) Coronavirus NL63 (PCR) (Not Detect) Human Metapneumovir PCR (Not Detect) Influenza Type A (PCR) (Not Detect) Influenza Type B (PCR) (Not Detect) M. pneumoniae (PCR) (Not Detect) Parainfluenza 1 (PCR) (Not Detect) Parainfluenza 2 (PCR) (Not Detect) Parainfluenza 3 (PCR) (Not Detect) Parainfluenza 4 (PCR) (Not Detect) RSV (PCR) (Not Detect) Entero/Rhino (PCR) (Not Detect) 01/10/22 01/10/22 Range/Units 08:50 08:50 WBC (4.5-11.0) X10^3/uL RBC (4.5-5.9) X10^6/uL Hgb (13.5-17.5) g/dL Hct (41-53) % MCV (80-100) fL MCH (26-34) PG MCHC (30-36) % RDW (11.6-14.8) % Plt Count (150-400) X10^3/uL Neut % (Auto) (50-75) % Lymph % (Auto) (25-40) % [place] % (Auto) (3-14) % Eos % (Auto) (2-4) % Baso % (Auto) (0-2) % Neut # (Auto) (8598-0726) /uL Lymph # (Auto) (6804-7380) /uL [place] # (Auto) (0-900) /uL Eos # (Auto) (0-450) /uL Baso # (Auto) (0-100) /uL PT (10.1-12.7) SECONDS INR (0.9-1.3) APTT (26-36) SECONDS Sodium 133 L (137-145) mmol/L Potassium 4.3 (3.4-5.1) mmol/L Chloride 103 (98-107) mmol/L Carbon Dioxide 22 (22-32) mmol/L BUN 55 H (9-20) mg/dL Creatinine 1.32 H (0.66-1.25) mg/dL Estimated GFR 55 L (>60) mL/min BUN/Creatinine Ratio 41.7 H (6-22) Glucose 158 H (80-110) mg/dL Lactate (0.7-2.1) mmol/L Calcium 7.9 L (8.4-10.2) mg/dL Magnesium 2.2 (1.6-2.3) mg/dL Total Bilirubin 0.6 (0.2-1.3) mg/dL AST 28 (17-59) IU/L ALT 30 (<50) IU/L Alkaline Phosphatase 155 H (38-126) U/L Total Creatine Kinase (55-170) U/L CK-MB (CK-2) CK-MB (CK-2) Rel Index Troponin I (0.01-0.034) ng/mL NT-Pro-B Natriuret Pep (<450) pg/mL Total Protein 5.0 L (6.3-8.2) g/dL Albumin 2.3 L (3.5-5.0) g/dL Globulin 2.7 (1.7-4.1) g/dL Albumin/Globulin Ratio 0.9 L (1.0-2.8) Procalcitonin 0.36 (<0.5) ng/mL Urine Color Urine Appearance Urine pH (4.5-8.0) Ur Specific [place] (1.000-1.035) Urine Protein (Negative) Urine Glucose (UA) (Negative) g/dL Urine Ketones (NEGATIVE) Urine Occult Blood (Negative) Urine Nitrate (Negative) Urine Bilirubin (NEGATIVE) Urine Urobilinogen (0.2) E.U./dL Ur Leukocyte Esterase (NEGATIVE) Urine RBC (0-5/HPF) Urine WBC (0-5/HPF) Urine Bacteria (None) Ur Culture Indicated? Micro UA Comment Chlamy pneumoniae PCR (Not Detect) Adenovirus (PCR) (Not Detect) B. pertussis DNA (PCR) (Not Detecte) B.parapertussis DNA PCR (Not Detecte) Coronavirus OC43 (PCR) (Not Detect) Coronavirus HKU1 (PCR) (Not Detect) Coronavirus 229E (PCR) (Not Detect) SARS-CoV-2 (PCR) (Not Detecte) Coronavirus NL63 (PCR) (Not Detect) Human Metapneumovir PCR (Not Detect) Influenza Type A (PCR) (Not Detect) Influenza Type B (PCR) (Not Detect) M. pneumoniae (PCR) (Not Detect) Parainfluenza 1 (PCR) (Not Detect) Parainfluenza 2 (PCR) (Not Detect) Parainfluenza 3 (PCR) (Not Detect) Parainfluenza 4 (PCR) (Not Detect) RSV (PCR) (Not Detect) Entero/Rhino (PCR) (Not Detect) Imaging Data Chest x-ray: Radiologist's Impression: XRay Report Signed Patient: Lauro Mosley MR#: [id number] : 1945 Acct:[id number] Age/Sex: 76 / M Date of Service: 01/09/22 Loc: Accession Number: [id number] ?? Procedure: XR chest 1V Ordering Provider: Mami Medina D.O. PROCEDURE:? XR CHEST 1V ? INDICATIONS:? sob ? TECHNIQUE:? One view of the chest was acquired.? ? COMPARISON:? [facility], , XR CHEST 1V, 10/28/2021, 17:12. ? FINDINGS:? ? Surgical changes and devices:? Right PICC is seen with tip projecting over the superior cavoatrial junction.? Right-sided Port-A-Cath is also seen with tip projecting over the superior cavoatrial junction. ? Lungs and pleura:? Small right pleural effusion is new when compared to the prior exam, with atelectasis of the right lower lobe.? Left lung is clear.? No pneumothorax .? Linear lucency projecting over the right lung apex is most likely a skin fold. ? Mediastinum:? Mediastinal contours appear normal.? Heart size is normal.? ? Bones and chest wall:? No suspicious bony lesions.? Overlying soft tissues appear unremarkable.? ? IMPRESSION:? Small right pleural effusion with atelectasis of the right lung base.? Left lung is clear. ? ? ? Approved by: Jose E Ramirez M.D. on 01/09/2022 at 19:29? CT scan - chest: Radiologist's Impression: JESSICA Silverman [id number] CT Scan Report Signed Patient: Lauro Mosley MR#: [id number] : 1945 Acct:[id number] Age/Sex: 76 / M Date of Service: 01/09/22 Loc: ED Accession Number: [id number] ?? Procedure: CT angio chest PE protocol Ordering Provider: Mami Medina D.O. PROCEDURE:? CT ANGIO CHEST PE PROTOCOL ? INDICATIONS:? cancer sob ? TECHNIQUE:? After the administration of intravenous contrast, 2 mm thick sections acquired from the pulmonary apices to the posterior costophrenic angles.? 3-dimensional maximum intensity projection (MIP) coronal and sagittal reformats were then acquired through the thorax.? For radiation dose reduction, the following was used:? automated exposure control, adjustment of mA and/or kV according to patient size.? ? COMPARISON:? [facility], CT, CT ABDOMEN PELVIS W CON, 10/27/2021, 20:39.? [facility], CT, CT CHEST ABD PEL W CON, 10/21/2021, 12:27.? [facility], CR, XR CHEST 1V, 01/09/2022, 19:10. ? FINDINGS:? Image quality:? Excellent.? ? Pulmonary arteries:? Pulmonary arteries are normal in size, and demonstrate no intraluminal filling defects to suggest central pulmonary embolism.? ? Lower Neck: No lymphadenopathy by size criteria. Thyroid:? Visualized thyroid demonstrates no discrete nodules. Axillae: No lymphadenopathy by size criteria. Chest Wall:? There is a right chest wall internal jugular Port-A-Cath redemonstrated with the tip extending into the right atrium.? A right upper extremity PICC line extends into the superior vena cava. Bones: Visualized osseous structures demonstrate no suspicious lesions. ? Lungs and Airways:? No acute consolidation.? No suspicious pulmonary nodules. The trachea and central airways are patent. Pleura: No pneumothorax.? There is a new moderate right pleural effusion with associated compressive atelectasis in the right lower lobe.? No left effusion.? ? Heart: Heart size is normal.? There is a minimal pericardial effusion. Thoracic Vessels: The thoracic aorta is normal in size.? Mediastinum and Arlene: No lymphadenopathy by size criteria. Esophagus:? There is mild concentric wall thickening of the distal esophagus extending to the gastroesophageal junction.? Mild distention of the esophagus is demonstrated proximally with associated air-fluid levels. ? Abdomen:? Visualized upper abdomen redemonstrates gastric wall thickening most prominent in the antrum consistent with history of gastric carcinoma.? There has been interval placement of a stent in the stomach traversing the antrum and pylorus.? There is also a partially visualized stent beginning in the 3rd portion of the duodenum.? There is a biliary stent in the common duct extending to the ampulla.? There is also a stent and pigtail catheter between the stomach and the central intrahepatic ducts, traversing the caudate lobe of the liver.? There is pneumobilia and biliary ductal dilatation demonstrated.? Laterally within the right hepatic lobe, there is a new subcapsular collection measuring approximately 7.4 x 5.5 x 7.2 cm. Soft tissue infiltration is demonstrated within the visualized omentum as well as a small amount of intraperitoneal free fluid.? Findings are again compatible with peritoneal carcinomatosis.? There is mild hydronephrosis within the partially visualized right kidney which is new from the prior study.? The gallbladder is partially distended with dependent calcified gallstones noted. ?No definite wall thickening. ? IMPRESSION:? ? 1. No evidence of pulmonary embolism. ? 2. Moderate right pleural effusion with associated compressive atelectasis in the right lower lobe. ? 3. Gastric wall thickening redemonstrated consistent with history of gastric cancer.? Interval placement of gastric, duodenal, and biliary stents are demonstrated as well as a pigtail catheter in stent connecting the stomach and central intrahepatic biliary ducts traversing the caudate lobe. ? 4. Persistent biliary ductal dilatation with new pneumobilia. ? 5. New loculated fluid collection within the peripheral right hepatic lobe of indeterminate etiology.? The differential includes a postsurgical cavity, seroma, or abscess.? Recommend correlation clinically. ? 6. New mild hydronephrosis within the partially visualized right kidney.? Recommend correlation clinically and dedicated abdominal imaging if indicated. ? 7. Omental soft tissue infiltration and ascites within the visualized abdomen redemonstrated consistent with peritoneal carcinomatosis, increased compared to the prior study. ? ? Dictated by: Brice Strong M.D. on 01/09/2022 at 23:31 ?? CT scan - abdomen/pelvis: Radiologist's Impression: Preliminary report large right pleural effusion stable subcapsular fluid collection within the right hepatic lobe possible abscess gastric duodenal and common bile duct stents extensive mucosal thickening of gastric mucosa likely related to known carcinoma stable nodular of omentum compatible with peritoneal carcinomatosis ECG Data Interpretation: Sinus tachycardia rate 134 TN interval 144 QRS 72 QTC 430 improved actually from prior EKG read some ST depressions no ST elevations no T-wave inversion low voltage MDM Narrative Medical decision making narrative: 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 Presenting a is the shortness of breath. X-ray shows a right-sided pleural effusion. CT does not show any pulmonary embolism. There was noted to be some right hydronephrosis is which was he angio so the he has minimal tachypnea at rest. However he says that with exertion he gets significantly short of breath and tachycardic. At this time there does not need to be any thoracentesis of his pleural effusion. However he cannot go home on Lasix he can not take pills orally. He does developed a low-grade fever here in the ED. No real source is found waiting on urine. Patient really is unable to swallow pills. Can not send him home with Lasix. Patient is found to have a lactic acid of 2.2 and actually went up to 3. He received 1 L of IV fluids. He developed a fever of 100.4. No obvious source respiratory panel is negative. Patient has been scanned chest abdomen pelvis with only abnormality of large right pleural effusion. Arrangement for of thoracentesis by Radiology has been made. Patient has not urinated all night Sidhu catheter displaced he does have urine. Creatinine is is within normal li mits. Patient is complaining of vomiting CT did not show any sort of obstruction or cause of vomiting. Vaughn LANGLEY accepts atient Discharge Plan Departure Patient Disposition: Admitted As Inpatient Clinical Impression: Pleural effusion, Fever Admit Date/Time: 01/10/22 08:53 Admit Provider: Daisy Mendes
[2022-01-09 20:44] LABS: Add Manual Diff / Slide Review NO; Basophils Absolute Auto 0 /uL (0-100); Basophils Percent Auto 0.6 % (0-2); Eosinophils Absolute Auto 200 /uL (0-450); Eosinophils Percent Auto 5.3 % (2-4); Hematocrit 26.9 % (41-53); Lymphocytes Absolute Auto 500 /uL (1100-4500); Lymphocytes Percent Auto 12.8 % (25-40); Mean Corpuscular HGB Conc 33.4 % (30-36); Mean Corpuscular Hemoglobin 30.2 PG (26-34); Mean Corpuscular Volume 90.3 fL (80-100); Monocytes Absolute Auto 400 /uL (0-900); Monocytes Percent Auto 11.5 % (3-14); Neutrophils Absolute Auto 2500 /uL (1500-7000); Neutrophils Percent Auto 69.8 % (50-75); Platelet Count 167 X10^3/uL (150-400); Red Blood Cell Count 2.98 X10^6/uL (4.5-5.9); Red Cell Distribution Width 16.7 % (11.6-14.8); White Blood Cell Count 3.6 X10^3/uL (4.5-11.0)
[2022-01-09 20:50] LABS: Adenovirus Not Detected (Not Detect); B. parapertussis Not Detected (Not Detecte); Bordetella pertussis Not Detected (Not Detecte); Chlamydophila pneumoniae Not Detected (Not Detect); Coronavirus 229E Not Detected (Not Detect); Coronavirus HKU1 Not Detected (Not Detect); Coronavirus NL 63 Not Detected (Not Detect); Coronavirus OC43 Not Detected (Not Detect); Human Metapneumovirus Not Detected (Not Detect); Human Rhinovirus/Enterovirus Not Detected (Not Detect); Influenza A Not Detected (Not Detect); Influenza B Not Detected (Not Detect); Mycoplasma pneumoniae Not Detected (Not Detect); Parainfluenza Virus 1 Not Detected (Not Detect); Parainfluenza Virus 2 Not Detected (Not Detect); Parainfluenza Virus 3 Not Detected (Not Detect); Parainfluenza Virus 4 Not Detected (Not Detect); Respiratory Syncytial Virus Not Detected (Not Detect); SARS- CoV-2 Not Detected (Not Detecte)
[2022-01-09 21:01] LABS: INR 1.3 (0.9-1.3); Prothrombin Time 14.8 SECONDS (10.1-12.7)
[2022-01-09 21:04] LABS: Alanine Aminotransferase 31 IU/L (<50); Albumin 2.3 g/dL (3.5-5.0); Albumin Globulin Ratio 0.8 (1.0-2.8); Alkaline Phosphatase 175 U/L (38-126); Aspartate Aminotransferase 27 IU/L (17-59); BUN Creatinine Ratio 43.5 (6-22); Bilirubin Total 0.9 mg/dL (0.2-1.3); Blood Urea Nitrogen 50 mg/dL (9-20); Calcium 8.2 mg/dL (8.4-10.2); Carbon Dioxide 24 mmol/L (22-32); Chloride 102 mmol/L (98-107); Creatine Kinase 21 U/L (55-170); Estimated Glomerular Filt Rate > 60 mL/min (>60); Globulin 2.9 g/dL (1.7-4.1); Glucose 142 mg/dL (80-110); HEMOLYSIS < 15 (0-50); PTT Partial Thromboplastin Tim 27 SECONDS (26-36); Potassium 4.2 mmol/L (3.4-5.1); Sodium 132 mmol/L (137-145); Total Protein 5.2 g/dL (6.3-8.2)
[2022-01-09 21:06] LABS: Lactate (Lactic Acid) 2.2 mmol/L (0.7-2.1)
[2022-01-09 21:16] LABS: NT-proBNP (BNP-Adult 18+) 492 pg/mL (<450); Troponin I 0.016 ng/mL (0.01-0.034)
[2022-01-09 21:21] LABS: Procalcitonin 0.28 ng/mL (<0.5)
[2022-01-09 21:47] VITALS: BP 114/72; PULSE 98; RESP 18; TEMP 37.9; O2SAT 98
[2022-01-09 22:32] LABS: Reflexed Lactate in 2 Hours Y
--- NOTE | 2022-01-09 22:37 | DI.CT.S_ITS ---
PROCEDURE: CT ANGIO CHEST PE PROTOCOL INDICATIONS: cancer sob TECHNIQUE: After the administration of intravenous contrast, 2 mm thick sections acquired from the pulmonary apices to the posterior costophrenic angles. 3-dimensional maximum intensity projection (MIP) coronal and sagittal reformats were then acquired through the thorax. For radiation dose reduction, the following was used: automated exposure control, adjustment of mA and/or kV according to patient size. COMPARISON: [facility], CT, CT ABDOMEN PELVIS W CON, 10/27/2021, 20:39. [facility], CT, CT CHEST ABD PEL W CON, 10/21/2021, 12:27. [facility], CR, XR CHEST 1V, 01/09/2022, 19:10. FINDINGS: Image quality: Excellent. Pulmonary arteries: Pulmonary arteries are normal in size, and demonstrate no intraluminal filling defects to suggest central pulmonary embolism. Lower Neck: No lymphadenopathy by size criteria. Thyroid: Visualized thyroid demonstrates no discrete nodules. Axillae: No lymphadenopathy by size criteria. Chest Wall: There is a right chest wall internal jugular Port-A-Cath redemonstrated with the tip extending into the right atrium. A right upper extremity PICC line extends into the superior vena cava. Bones: Visualized osseous structures demonstrate no suspicious lesions. Lungs and Airways: No acute consolidation. No suspicious pulmonary nodules. The trachea and central airways are patent. Pleura: No pneumothorax. There is a new moderate right pleural effusion with associated compressive atelectasis in the right lower lobe. No left effusion. Heart: Heart size is normal. There is a minimal pericardial effusion. Thoracic Vessels: The thoracic aorta is normal in size. Mediastinum and Arlene: No lymphadenopathy by size criteria. Esophagus: There is mild concentric wall thickening of the distal esophagus extending to the gastroesophageal junction. Mild distention of the esophagus is demonstrated proximally with associated air-fluid levels. Abdomen: Visualized upper abdomen redemonstrates gastric wall thickening most prominent in the antrum consistent with history of gastric carcinoma. There has been interval placement of a stent in the stomach traversing the antrum and pylorus. There is also a partially visualized stent beginning in the 3rd portion of the duodenum. There is a biliary stent in the common duct extending to the ampulla. There is also a stent and pigtail catheter between the stomach and the central intrahepatic ducts, traversing the caudate lobe of the liver. There is pneumobilia and biliary ductal dilatation demonstrated. Laterally within the right hepatic lobe, there is a new subcapsular collection measuring approximately 7.4 x 5.5 x 7.2 cm. Soft tissue infiltration is demonstrated within the visualized omentum as well as a small amount of intraperitoneal free fluid. Findings are again compatible with peritoneal carcinomatosis. There is mild hydronephrosis within the partially visualized right kidney which is new from the prior study. The gallbladder is partially distended with dependent calcified gallstones noted. No definite wall thickening. IMPRESSION: 1. No evidence of pulmonary embolism. 2. Moderate right pleural effusion with associated compressive atelectasis in the right lower lobe. 3. Gastric wall thickening redemonstrated consistent with history of gastric cancer. Interval placement of gastric, duodenal, and biliary stents are demonstrated as well as a pigtail catheter in stent connecting the stomach and central intrahepatic biliary ducts traversing the caudate lobe. 4. Persistent biliary ductal dilatation with new pneumobilia. 5. New loculated fluid collection within the peripheral right hepatic lobe of indeterminate etiology. The differential includes a postsurgical cavity, seroma, or abscess. Recommend correlation clinically. 6. New mild hydronephrosis within the partially visualized right kidney. Recommend correlation clinically and dedicated abdominal imaging if indicated. 7. Omental soft tissue infiltration and ascites within the visualized abdomen redemonstrated consistent with peritoneal carcinomatosis, increased compared to the prior study. Dictated by: Brice Strong M.D. on 01/09/2022 at 23:31 Approved by: Brice Strong M.D. on 01/09/2022 at 23:47
[2022-01-09] MEDS: FUROSEMIDE 40 MG/4 ML VIAL 20 MG IV (23:19)
[2022-01-09 23:47] VITALS: BP 106/58; PULSE 104; RESP 18; TEMP 38
[2022-01-10] VITALS (13 sets, daily range): BP systolic 101–114; BP diastolic 59–79; PULSE 61–109; RESP 16–19; TEMP 36.4–38.2; O2SAT 97–100; BMI 20.4
--- NOTE | 2022-01-10 01:51 | DI.CT.S_ITS ---
PROCEDURE: CT ABDOMEN PELVIS W CON INDICATIONS: hydro, known cancer TECHNIQUE: After the administration of oral and IV contrast, axial sections were acquired from the lung bases to the pubic symphysis. Coronal and sagittal reformats were performed. For radiation dose reduction, the following was used: automated exposure control, adjustment of mA and/or kV according to patient size. COMPARISON: [facility], CT, CT ANGIO CHEST PE PROTOCOL, 01/09/2022, 22:52. [facility], NM, NM PET CT FUSION SKULL 2 THIGH, 10/27/2021, 8:31. [facility], CT, CT CHEST ABD PEL W CON, 10/21/2021, 12:27. [facility], CR, XR CHEST 1V, 01/09/2022, 19:10. [facility], CT, CT ABDOMEN PELVIS W CON, 10/27/2021, 20:39. FINDINGS: Image quality: Excellent. Lung bases: There is moderate right pleural effusion. Right basilar atelectasis. Diffuse esophageal wall thickening in the distal esophagus. Heart: No significant findings. ABDOMEN: Liver: Normal in size. There is a 7.8 x 5.8 x 6.8 cm fluid collection along the lateral aspect of the hepatic capsule under the right hemidiaphragm. The posterior wall of the fluid collection appears irregularly thickened and contains foci of small gas collection. Surgical clips or coils are seen in the right hepatic lobe. Gallbladder: Bladder wall appears slightly thickened but bladder is not fully distended. There is a calcified gallstone. Biliary ducts: There is a biliary stent in the common bile duct. Pneumobilia in liver. Pancreas: There is pancreatic duct dilation measuring up to 6 mm. Spleen: Unremarkable. Adrenal Glands: Left adrenal thickening and nodularity appear unchanged. Kidneys and Ureters: Kidneys are normal in size and symmetrical in enhancement. Trace renal pelviectasis bilaterally Stomach and Bowel: There is diffuse gastric wall thickening. There is a stent within the gastric antrum and duodenum. More distally, bowel loops and colon are normal in caliber. Mild segmental thickening of the sigmoid colon. Diverticulosis without diverticulitis. A large amount of stool in rectum. Peritoneum: Nodularity of omentum consistent with omental carcinomatosis. There is a trace abnormal intraperitoneal fluid. No free air. Ventral Wall: No hernia. There is diffuse body wall edema. Abdominal Nodes: There is a 1.0 x 1.2 cm left para-aortic lymph node (series 2, image 34), suspicious for metastasis. Vessels: Aorta and inferior vena cava are normal in size. PELVIS: Pelvic Organs: Prostate is enlarged. Bladder: Unremarkable. Pelvic Nodes: No enlarged lymph nodes. Miscellaneous: Small left inguinal hernia is seen. Bones: Scoliosis. Degenerative changes in thoracic and lumbar spine IMPRESSION: 1. Moderate right pleural effusion with right basilar atelectasis. 2. There is a 7.8 x 5.8 x 6.8 cm fluid subcapsular collection along the hepatic dome/right hemidiaphragm. The posterior wall of the collection appears irregularly and contains small foci of gas collection. Differential diagnoses are an abscess versus metastatic disease. 3. Diffuse gastric wall thickening consistent with gastric cancer. There is a stent in the stomach and duodenum. 3. A biliary stent in the common bile duct. There is pneumobilia. 4. Omental nodularity suspicious for omental carcinomatosis. 5. Mild retroperitoneal lymphadenopathy suspicious for metastasis. 6. Diffuse distal esophageal wall thickening may be secondary to esophagitis. 7. Cholelithiasis. 8. Mild thickening of the sigmoid colon, unchanged. Diverticulosis without diverticulitis. 9. Mild bilateral renal pelviectasis. No obstructive renal stones. No significant discrepancy with the shift mechanic radiology preliminary report. Dictated by: Casey Mclean M.D. on 01/10/2022 at 8:11 Approved by: Casey Mclean M.D. on 01/10/2022 at 9:41
[2022-01-10] MEDS: KETOROLAC 30 MG/ML VIAL 15 MG IV (02:05)
[2022-01-10] MEDS: SODIUM CHLORIDE 0.9% 1,000 ML 1000 ML IV (02:05)
[2022-01-10] MEDS: ONDANSETRON 4 MG/2 ML INJ IV ×2 (06:34→17:40)
--- NOTE | 2022-01-10 07:41 | PATH_ITS ---
Note [facility] Accession Number: [id number] TESTS RESULT FLAG UNITS REF RANGE LAB Clinician Provided Cytology Information No. of containers..01 Other (Miscellaneous) Source: PLEURAL FLUID DIAGNOSIS: PLEURAL FLUID, THORACENTESIS. NEGATIVE FOR MALIGNANT CELLS. BENIGN, REACTIVE MESOTHELIAL CELLS ARE PRESENT. THIS INTERPRETATION INCLUDES EVALUATION OF A CELL BLOCK. Pathologist ICD10: 01 J90 Signed out by: Quentin Cordova MD, Pathologist NPI- [id number] Performed by: Jian Mata, [employer] ([facility]) Gross description: 01 20 CC, YELLOW, CLOUDY /LCS 01/11/2022 2358 Local FLAG LEGEND: L-Low Normal,H-High Normal,LL-Alert Low,HH-Alert High <-Panic Low,>-Panic High,A-Abnormal,AA-Critical Abnormal Performed at: 01 =Z [facility] [address], [place] [address] Brice Buck MD, Performed at: 01 [facility] [address], [place], [place] [id number] MD Brice Buck MD Phone: [phone]
--- NOTE | 2022-01-10 07:41 | DI.US.S_ITS ---
PROCEDURE: US THORACENTESIS INDICATIONS: pleural effusion diagnostic and theraputic TECHNIQUE: The indications, alternatives, benefits, risks, and complications of the procedure were explained to the patient. Written informed consent was obtained and placed in the chart. The chest was examined sonographically, and an appropriate site was chosen for thoracentesis. The skin was prepared and draped in the usual sterile fashion, and 1% lidocaine was infiltrated from the skin down through the pleural surface. A 19-gauge catheter-covered needle was then introduced into the pleural space, the catheter was advanced and the needle was withdrawn, and thereafter pleural fluid was aspirated. The catheter was then removed and a dressing was applied. COMPARISON: None. FINDINGS: Access site: Right hemithorax. Needle: One-Step centesis catheter with introducer needle. Fluid volume and description: Clear straw-colored. 950 cc Fluid sent for diagnostic testing: Culture and cytology Medications: 1% lidocaine for local anaesthesia. Complications: None; post-procedural chest radiograph is pending to assess for pneumothorax. IMPRESSION: Successful ultrasound-guided thoracentesis. Dictated by: Ish Calderon M.D. on 01/10/2022 at 14:30 Approved by: Ish Calderon M.D. on 01/10/2022 at 14:31
[2022-01-10] MEDS: SODIUM CHLORIDE 0.9% 1,000 ML 150 ML IV (09:00)
[2022-01-10] MEDS: METOCLOPRAMIDE 10 MG/2 ML INJ IV (09:00)
[2022-01-10] MEDS: PIPERACILLIN/TAZO 4.5 GM in SODIUM CHLORIDE 0.9% 100 ML IV (09:04)
[2022-01-10 09:23] LABS: Add Manual Diff / Slide Review NO; Basophils Absolute Auto 0 /uL (0-100); Eosinophils Absolute Auto 300 /uL (0-450); Eosinophils Percent Auto 7.4 % (2-4); Hematocrit 29.5 % (41-53); Hemoglobin 9.8 g/dL (13.5-17.5); Lymphocytes Absolute Auto 600 /uL (1100-4500); Lymphocytes Percent Auto 14.1 % (25-40); Mean Corpuscular HGB Conc 33.4 % (30-36); Mean Corpuscular Hemoglobin 30.3 PG (26-34); Mean Corpuscular Volume 90.9 fL (80-100); Monocytes Absolute Auto 600 /uL (0-900); Monocytes Percent Auto 15.7 % (3-14); Neutrophils Absolute Auto 2500 /uL (1500-7000); Neutrophils Percent Auto 61.8 % (50-75); Platelet Count 156 X10^3/uL (150-400); Red Blood Cell Count 3.24 X10^6/uL (4.5-5.9); Red Cell Distribution Width 16.2 % (11.6-14.8); White Blood Cell Count 4.1 X10^3/uL (4.5-11.0)
[2022-01-10 09:26] LABS: HEMOLYSIS < 15 (0-50); Potassium 4.3 mmol/L (3.4-5.1)
[2022-01-10 09:27] LABS: Alanine Aminotransferase 30 IU/L (<50); Albumin 2.3 g/dL (3.5-5.0); Albumin Globulin Ratio 0.9 (1.0-2.8); Alkaline Phosphatase 155 U/L (38-126); Aspartate Aminotransferase 28 IU/L (17-59); BUN Creatinine Ratio 41.7 (6-22); Bilirubin Total 0.6 mg/dL (0.2-1.3); Blood Urea Nitrogen 55 mg/dL (9-20); Calcium 7.9 mg/dL (8.4-10.2); Carbon Dioxide 22 mmol/L (22-32); Chloride 103 mmol/L (98-107); Estimated Glomerular Filt Rate 55 mL/min (>60); Globulin 2.7 g/dL (1.7-4.1); Glucose 158 mg/dL (80-110); Lactate (Lactic Acid) 1.8 mmol/L (0.7-2.1); Sodium 133 mmol/L (137-145)
[2022-01-10 09:44] LABS: Procalcitonin 0.36 ng/mL (<0.5)
[2022-01-10 10:03] LABS: Appearance Urine UA CLEAR; Bilirubin Urine UA NEGATIVE (NEGATIVE); Color Urine UA YELLOW; Glucose Urine UA NEGATIVE (Negative); Ketones Urine UA NEGATIVE (NEGATIVE); Leukocyte Esterase Urine UA NEGATIVE (NEGATIVE); Nitrite Urine UA NEGATIVE (Negative); Occult Blood Urine UA NEGATIVE (Negative); Protein Urine UA TRACE (Negative); Urobilinogen Urine UA 0.2 E.U./dL (0.2)
[2022-01-10 10:08] LABS: Bacteria Urine None Seen; Culture Indicated Urine Cult Not Indicated; RBC Urine None Seen (0-5/HPF); Urine Comments Microscopic Normal; WBC Urine None Seen (0-5/HPF)
--- NOTE | 2022-01-10 10:21 | PC.NURSE ---
Ultrasound and at bedside performing thoracentesis. Consent obtained, suction and oxygen at bedside.
--- NOTE | 2022-01-10 11:40 | PM.HP.1 ---
History of Present Illness History of Present Illness Date Patient Seen: 01/10/22 Time Patient Seen: 11:15 Chief complaint: SOB Narrative: 76 M with PMH of Stage IV signet ring adenocarcinoma, with gastric outlet obstruction and multiple biliary stenting procedures for obstruction with klebsiella bacteremia off of outpatient IV antibiotics about 10 days ago, follows at , with malnutrition on TPN due to gastric outlet obstruction from his malignancy currently on palliative chemotherapy who presents with worsening dyspnea on exertion. He denies orthopnea , lower extremity edema, chest pain, pleuritic pain, palpitations. He did receive his flu and COVID combined booster two days ago (01/08). He feels generally weak. He denies subjective fever and chills. He does have a rash but this started after chemo. He has persistent nausea and vomiting with his outlet obstruction with some mild worsening over the past couple of days. He is able to tolerate small sips and medications. In the emergency room, he had low grade fever to 100.5, started on antibiotics. CT imaging was negative for PE, but did show R small pleural effusion for which thoracentesis was ordered. By the time of my evaluation, he had 1L of fluid taken off (light / clear yellow visible in ER container) with no reports of dyspnea but he had not attempted to walk yet. He did desaturate with ambulation to 81% in the ER. He was mildly tachycardic as well and BP were soft. Labs were notable for mild leukopenia, chronic and stable anemia from previous evaluations and comparable to prior documentation from [facility]. Creatine was elevated at 1.32, bilirubin was normal, troponin was within normal limits, mild elevation in proBNP at 492, procalcitonin was 0.36. UA negative for infection. Respiratory panel negative. CT chest as noted above, abdominal CT showed There is a 7.8 x 5.8 x 6.8 cm fluid collection along the lateral aspect of the hepatic capsule under the right hemidiaphragm. 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 Patient History Medical History Chicken pox Chronic back pain Depression Eczema Hearing loss Hyperlipidemia Iron (Fe) deficiency anemia Low testosterone Measles Mumps Shoulder pain Vitamin D deficiency Surgical History Anesthesia History of cataract removal with insertion of prosthetic lens (~09/2019) Undescended right testicle (~1959) Webb teeth extracted (~1979) Family & Social History Family History Father Hypertension Grandfather History of heart disease Grandmother Flu Social History: household members spouse Safety & Behavioral: Feels Safe in Current Yes Environment Been Physically Hurt or No Threatened By a Person Tobacco & Substance use: Smoking Status Former smoker alcohol intake never Substance Use Type does not use Meds Home Medications and Allergies Home Medications Medication Instructions Recorded Confirmed Type citalopram 10 mg tablet 10 mg PO DAILY #90 tabs 12/23/21 01/10/22 Rx ondansetron 8 mg disintegrating 8 mg PO Q4H PRN nasuea or vomiting 01/10/22 01/10/22 History tablet oxycodone 5 mg tablet 5 mg PO Q6H PRN Pain (Scale Score 01/10/22 01/10/22 History 4-6) pantoprazole 40 mg tablet,delayed 40 mg PO BID 01/10/22 01/10/22 History release Allergies Allergy/AdvReac Type Severity Reaction Status Date / Time No Known Drug Allergies Allergy Verified 12/21/21 15:43 Review of Systems Review of Systems Narrative: All other systems reviewed with the patient and are negative unless otherwise stated. Exam Vital Signs (past 8 hours): - 01/10/22 04:17 01/10/22 09:17 01/10/22 10:33 Temperature 99.7 F H 98.6 F Pulse Rate 94 H 109 H Respiratory Rate 18 18 Blood Pressure 114/66 103/60 Blood Pressure [Left Arm] Pulse Oximetry 98 100 Oxygen Delivery Method 01/10/22 11:38 Temperature Pulse Rate 107 H Respiratory Rate 18 Blood Pressure Blood Pressure [Left Arm] 101/59 L Pulse Oximetry 100 Oxygen Delivery Method Room Air Oxygen Delivery Method Room Air Narrative Exam Narrative: General:?Acute on chronically ill appearing male, no acute distress sitting upright in ER stretcher. HEENT:? Normocephalic, atraumatic, extraocular muscles intact, oral pharynx is clear and mucous membranes are dry. Neck: supple and symmetric, trachea is midline, no cervical adenopathy. Negative for JVD Chest:? Normal AP diameter and contour without kyphoscoliosis, no tachypnea, equal chest rise bilaterally. Lungs:? right lower lobe decreased breath sounds with mild rales, no wheezing. Cardio:?tachcyardia with regular rhythm, no m/r/g. Abdomen: S NT ND. Musculoskeletal:? Muscle strength and tone are equal within normal limits, no deformity. Extremities: No edema or joint effusions. No cyanosis or clubbing. Skin:? Pale,? Warm to touch, erythematous macular to maculopapular rash diffusely throughout his body. Neuro:? Alert and orientated x3,? sensation to touch intact in all extremities, no gross deficits noted of cranial nerves. Psych:? Patient has a well-kept appearance, appropriate affect, mental status attitude thought context and judgment are appropriate for age. Objective ECG Impression: sinus tachcyardia without acute ischemia as interpreted by me. Labs Result Diagrams: 01/10/22 08:50 01/10/22 08:50 Labs: Laboratory Results - last 24 hr 01/09/22 01/09/22 01/09/22 19:35 20:04 20:04 WBC 3.6 L RBC 2.98 L Hgb 9.0 L Hct 26.9 L MCV 90.3 MCH 30.2 MCHC 33.4 RDW 16.7 H Plt Count 167 Neut % (Auto) 69.8 Lymph % (Auto) 12.8 L [place] % (Auto) 11.5 Eos % (Auto) 5.3 H Baso % (Auto) 0.6 Neut # (Auto) 2500 Lymph # (Auto) 500 L [place] # (Auto) 400 Eos # (Auto) 200 Baso # (Auto) 0 PT 14.8 H INR 1.3 APTT 27 Sodium Potassium Chloride Carbon Dioxide BUN Creatinine Estimated GFR BUN/Creatinine Ratio Glucose Lactate Calcium Total Bilirubin AST ALT Alkaline Phosphatase Total Creatine Kinase CK-MB (CK-2) CK-MB (CK-2) Rel Index Troponin I NT-Pro-B Natriuret Pep Total Protein Albumin Globulin Albumin/Globulin Ratio Procalcitonin Urine Color Urine Appearance Urine pH Ur Specific Roberts Urine Protein Urine Glucose (UA) Urine Ketones Urine Occult Blood Urine Nitrate Urine Bilirubin Urine Urobilinogen Ur Leukocyte Esterase Urine RBC Urine WBC Urine Bacteria Ur Culture Indicated? Micro UA Comment Chlamy pneumoniae PCR Not detected Adenovirus (PCR) Not detected B. pertussis DNA (PCR) Not detected B.parapertussis DNA PCR Not detected Coronavirus OC43 (PCR) Not detected Coronavirus HKU1 (PCR) Not detected Coronavirus 229E (PCR) Not detected SARS-CoV-2 (PCR) Not detected Coronavirus NL63 (PCR) Not detected Human Metapneumovir PCR Not detected Influenza Type A (PCR) Not detected Influenza Type B (PCR) Not detected M. pneumoniae (PCR) Not detected Parainfluenza 1 (PCR) Not detected Parainfluenza 2 (PCR) Not detected Parainfluenza 3 (PCR) Not detected Parainfluenza 4 (PCR) Not detected RSV (PCR) Not detected Entero/Rhino (PCR) Not detected 01/09/22 01/09/22 01/09/22 20:04 20:04 23:25 WBC RBC Hgb Hct MCV MCH MCHC RDW Plt Count Neut % (Auto) Lymph % (Auto) [place] % (Auto) Eos % (Auto) Baso % (Auto) Neut # (Auto) Lymph # (Auto) [place] # (Auto) Eos # (Auto) Baso # (Auto) PT INR APTT Sodium 132 L Potassium 4.2 Chloride 102 Carbon Dioxide 24 BUN 50 H Creatinine 1.15 Estimated GFR > 60 BUN/Creatinine Ratio 43.5 H Glucose 142 H Lactate 2.2 H 3.0 H Calcium 8.2 L Total Bilirubin 0.9 AST 27 ALT 31 Alkaline Phosphatase 175 H Total Creatine Kinase 21 L CK-MB (CK-2) TNP CK-MB (CK-2) Rel Index TNP Troponin I 0.016 NT-Pro-B Natriuret Pep 492 H Total Protein 5.2 L Albumin 2.3 L Globulin 2.9 Albumin/Globulin Ratio 0.8 L Procalcitonin 0.28 Urine Color Urine Appearance Urine pH Ur Specific Roberts Urine Protein Urine Glucose (UA) Urine Ketones Urine Occult Blood Urine Nitrate Urine Bilirubin Urine Urobilinogen Ur Leukocyte Esterase Urine RBC Urine WBC Urine Bacteria Ur Culture Indicated? Micro UA Comment Chlamy pneumoniae PCR Adenovirus (PCR) B. pertussis DNA (PCR) B.parapertussis DNA PCR Coronavirus OC43 (PCR) Coronavirus HKU1 (PCR) Coronavirus 229E (PCR) SARS-CoV-2 (PCR) Coronavirus NL63 (PCR) Human Metapneumovir PCR Influenza Type A (PCR) Influenza Type B (PCR) M. pneumoniae (PCR) Parainfluenza 1 (PCR) Parainfluenza 2 (PCR) Parainfluenza 3 (PCR) Parainfluenza 4 (PCR) RSV (PCR) Entero/Rhino (PCR) 01/10/22 01/10/22 01/10/22 08:40 08:50 08:50 WBC 4.1 L RBC 3.24 L Hgb 9.8 L Hct 29.5 L MCV 90.9 MCH 30.3 MCHC 33.4 RDW 16.2 H Plt Count 156 Neut % (Auto) 61.8 Lymph % (Auto) 14.1 L [place] % (Auto) 15.7 H Eos % (Auto) 7.4 H Baso % (Auto) 1.0 Neut # (Auto) 2500 Lymph # (Auto) 600 L [place] # (Auto) 600 Eos # (Auto) 300 Baso # (Auto) 0 PT INR APTT Sodium Potassium Chloride Carbon Dioxide BUN Creatinine Estimated GFR BUN/Creatinine Ratio Glucose Lactate 1.8 Calcium Total Bilirubin AST ALT Alkaline Phosphatase Total Creatine Kinase CK-MB (CK-2) CK-MB (CK-2) Rel Index Troponin I NT-Pro-B Natriuret Pep Total Protein Albumin Globulin Albumin/Globulin Ratio Procalcitonin Urine Color Yellow Urine Appearance Clear Urine pH 5.0 Ur Specific Roberts 1.010 Urine Protein Trace H Urine Glucose (UA) Negative Urine Ketones Negative Urine Occult Blood Negative Urine Nitrate Negative Urine Bilirubin Negative Urine Urobilinogen 0.2 Ur Leukocyte Esterase Negative Urine RBC None seen Urine WBC None seen Urine Bacteria None seen Ur Culture Indicated? Cult not indicated Micro UA Comment Microscopic normal Chlamy pneumoniae PCR Adenovirus (PCR) B. pertussis DNA (PCR) B.parapertussis DNA PCR Coronavirus OC43 (PCR) Coronavirus HKU1 (PCR) Coronavirus 229E (PCR) SARS-CoV-2 (PCR) Coronavirus NL63 (PCR) Human Metapneumovir PCR Influenza Type A (PCR) Influenza Type B (PCR) M. pneumoniae (PCR) Parainfluenza 1 (PCR) Parainfluenza 2 (PCR) Parainfluenza 3 (PCR) Parainfluenza 4 (PCR) RSV (PCR) Entero/Rhino (PCR) 01/10/22 08:50 WBC RBC Hgb Hct MCV MCH MCHC RDW Plt Count Neut % (Auto) Lymph % (Auto) [place] % (Auto) Eos % (Auto) Baso % (Auto) Neut # (Auto) Lymph # (Auto) [place] # (Auto) Eos # (Auto) Baso # (Auto) PT INR APTT Sodium 133 L Potassium 4.3 Chloride 103 Carbon Dioxide 22 BUN 55 H Creatinine 1.32 H Estimated GFR 55 L BUN/Creatinine Ratio 41.7 H Glucose 158 H Lactate Calcium 7.9 L Total Bilirubin 0.6 AST 28 ALT 30 Alkaline Phosphatase 155 H Total Creatine Kinase CK-MB (CK-2) CK-MB (CK-2) Rel Index Troponin I NT-Pro-B Natriuret Pep Total Protein 5.0 L Albumin 2.3 L Globulin 2.7 Albumin/Globulin Ratio 0.9 L Procalcitonin 0.36 Urine Color Urine Appearance Urine pH Ur Specific Roberts Urine Protein Urine Glucose (UA) Urine Ketones Urine Occult Blood Urine Nitrate Urine Bilirubin Urine Urobilinogen Ur Leukocyte Esterase Urine RBC Urine WBC Urine Bacteria Ur Culture Indicated? Micro UA Comment Chlamy pneumoniae PCR Adenovirus (PCR) B. pertussis DNA (PCR) B.parapertussis DNA PCR Coronavirus OC43 (PCR) Coronavirus HKU1 (PCR) Coronavirus 229E (PCR) SARS-CoV-2 (PCR) Coronavirus NL63 (PCR) Human Metapneumovir PCR Influenza Type A (PCR) Influenza Type B (PCR) M. pneumoniae (PCR) Parainfluenza 1 (PCR) Parainfluenza 2 (PCR) Parainfluenza 3 (PCR) Parainfluenza 4 (PCR) RSV (PCR) Entero/Rhino (PCR) Assessment & Plan Assessment & Plan narrative: 1. Acute respiratory failure with hypoxia, dyspnea on exertion, R pleural effusion - s/p thoracentesis in the ER, ordered cell count and culture and cytology. Etiologies most likely include bacterial infectious / parapneumonic effusion, malignant effusion, or heart failure. - given proBNP elevation, dyspnea on exertion, and LE edema ordered echo to evaluate for possible heart failure as a cause, hold lasix at this time given soft BP. - possibly infectious in etiology, though fluid at bedside appeared clear and yellow, fluid studies ordered. - continue zosyn for now for possible sepsis 2. Possible sepsis with acute respiratory failure and AKU - febrile in the ER, received IV fluids and antibiotics. Blood cultures drawn and pending. SOFA score would be 2. - he has recent history of klebsiella bacteremia presumably due to biliary source with multiple biliary stents still in place. His labs are reassuring with a normal bilirubin. Hepatic fluid collection appears to be improving when reviewing previous imaging reports and is felt less likely to be infectious at this time. - patient also received COVID and flu shot on 01/08 and may be the cause of his fever in the ER. - possibly fluid in R lung is infectious so will continue zosyn for now. - port site on exam appears unremarkable, rash predates current symptoms and likely due to chemotherapy. - follow up blood cultures, UA negative. Can possibly stop antibiotics if cultures negative. 3. Stage IV signet ring adenocarcinoma - follows with , life expectancy without treatment stated at 3-6 months per records. - no acute management at this time. - continue PPI, symptom relief for gastric outlet obstruction. - symptom relief to continue with prn oxycodone and ondansetron. 4. Acute on chronic severe protein calorie malnutrition on TPN due to gastric outlet obstruction. - continue home TPN per pharmacy. Gets lipids on Mon, Mon, Sun. [facility] through [facility] per spouse. - nutrition consultation. - increases patient's risk for complications while admitted to the hospital, and increases complexity of medical care. 5. Mild hyponatremia - suspect secondary to dehydration, continue NS for now until resuming TPN. 6. KAROLINA - suspect due to dehydration, possible sepsis. - continue IV fluids for now and follow creatinine. I have utilized all available immediate resources to obtain, update, or review the patient's current medications. Code: DNR, surrogate patient's spouse DVT: Lovenox Given patients underlying recent malignancy and complexity of his acute illness, as well as his acute fever and high probability for severe infection with need for prolonged monitoring, his stay is expected to exceed two midnights and will be admitted as an inpatient. COVID-19 COVID-19 status: Negative Time Spent With Patient Critical Care time: I spent a total of [] minutes of critical care time on this patient's care today; this time is exclusive of procedural time. Quality MIPS - Admit I confirm the patient?s Advance Care Plan is present, Code status is documented, Surrogate decision maker is in patient?s record [If Yes, STOP here]: Yes
[2022-01-10 11:49] LABS: Magnesium 2.2 mg/dL (1.6-2.3)
--- NOTE | 2022-01-10 12:50 | DIET.CONS ---
Dietary Consultation Note Admission Date: 01/10/2022 08:53 Assessment: 76y M admitted for diuresis as he cannot swallow pills secondary to esophageal thickening and advanced stomach cancer. Pt referred to nutrition by Pharmacy for TPN reccs as pt on TPN at baseline at home. RD met with pt in ED. She states pt gets TPN from [facility] who recently reduced him to 16h nocturnal feeds with lipids three days per week. Pt had his full TPN overnight last night ending at 9am. Ht: 180.34 cm Wt: 65.771 kg BMI: 20.2 (underweight) Labs: RBC 3.24 X10^6/uL (4.5-5.9) L 01/10/22 08:50 Hgb 9.8 g/dL (13.5-17.5) L 01/10/22 08:50 Hct 29.5 % (41-53) L 01/10/22 08:50 Creatinine 1.32 mg/dL (0.66-1.25) H 01/10/22 08:50 Lactate 1.8 mmol/L (0.7-2.1) 01/10/22 08:50 NT-Pro-B Natriuret Pep 492 pg/mL (<450) H 01/09/22 20:04 Nutrition Diagnosis: Severe Acute on Chronic Protein Calorie Malnutrition r/t gastric cancer with mets to omentum aeb pt TPN reliant, unable to swallow meaningful PO, BMI 20.2. Interventions: 1. Communicated pts protein and kcal needs to pharmacy, plan for 2L Clinimix E running 24h starting at 1800 this evening with 250mL lipids three times per week starting on Monday. EER: 2,000-2,200 kcals (30-35kcal/kg per PCM), 98g PRO (1.5g/kg per PCM) Monitoring/Evaluations: Electronically Signed by: Catherine Palacios 01/10/22 12:50 Clinical Dietitian [address] [address]
--- NOTE | 2022-01-10 14:42 | CM.DANOTE ---
Addendum entered by Harmony Parker 01/10/22 15:06: After reviewing Dietary Assessment, Patient receives TPN from [facility]. MEDICAL OFFICE SCHEDULER receives return call from Malka Ross social services technician at [facility] and states that the referral process has started to transfer services from [facility] to [facility], Malka states she will f/u with patient and spouse. JOAQUIN Pagan Original Note: Initial Brief DCP Assessment Note Patient is 76 y/o male who presents to due to concern for SOB and weakness. Patient was admitted due to concern for right PE and fever etiology. Patient has PMH stage IV signet ring Adenocarcinoma, patient receiving TPN via outpatient IV. Patient receives Palliative Chemotherapy at [facility] and is hoping to transfer to [facility] here at . Patient's PCP is Dr. Eddie Ba, patient has Medicare and [facility] [employer]. POLST in file: Patient is full code. MEDICAL OFFICE SCHEDULER enters room to meet with patient briefly prior to patient's admission to acute care. Patient presents as A/Ox3. Patient endorses he resides with his Charlee, at this time Charlee was not present. Patient endorses independence with ADLs and states that he uses a FWW at home. Patient endorses that his assists him with medication management. Patient endorses increase in weakness the last few days due to illness. Per EMR, patient stay expected stay to exceed two midnights due to complexities of malignancy, acute illness and infection. MEDICAL OFFICE SCHEDULER calls JOAQUIN Porter at [facility] regarding patient's admission to and request to transfer to [facility]. MEDICAL OFFICE SCHEDULER calls Dr. Ba' PCP office regarding this referral request to transfer to [facility] as well. Plan: DCP to f/u with patient's POC and discuss DCP options with spouse and patient further. Patient likely to stay longer than 2 midnights. SNF rehab vs. HH. JOAQUIN Pagan Discharge Planning/Care Management CM Discharge Assessment Start: 01/10/22 14:35 Freq: Status: Active Protocol: Document 01/10/22 14:37 LN (Rec: 01/10/22 14:42 LN [id number]) Discharge Planning Assessment Assigned Recreation Worker JOAQUIN Antunez DPOA/Assigned Designee Name Charlee Mosley/ Spouse Contact Information Ph. # [phone] Advance Directives? Yes: POLST History Provided By Patient,Medical Record Has Patient been admitted in last 30 No days? Prior Living Arrangements House Household Members spouse Type of transportation used prior to Drives own vehicle admit Independent with ADL's Yes Needs Assistance With Managing Medications Comment Patient endorses his manages medication management Community Services used prior to IV Therapy admission: DME Already Rented / Owned FWW / Walker Comment MEDICAL OFFICE SCHEDULER met with patient briefly right as he was about to be transported to acute care room . Please Provide Date Initial DC 01/10/22 Assessment Was Performed
--- NOTE | 2022-01-10 16:42 | DI.ECHO.S_ITS ---
Interpretation Summary The study quality was technically difficult. The ejection fraction is estimated to be 60-65%. Diastolic function could not be accurately assessed due to tachycardia. The right ventricle is normal in size and function. No obvious valvular abnormalities. Unable to estimate PASP. Procedure: A two-dimensional transthoracic echocardiogram with color flow and Doppler was performed. The study quality was technically difficult. There is no prior echocardiogram noted for this patient. The patient was in sinus tachycardia with heart rates between 99-111 bpm during the exam. Left Ventricle: The left ventricle is normal in size and wall thickness. Left ventricular systolic function is normal. The ejection fraction is estimated to be 60-65%. There are no focal wall motion abnormalities. Diastolic function could not be accurately assessed due to tachycardia. Right Ventricle: The right ventricle is normal in size and function. Atria: The left atrium grossly appears normal in size. The right atrium grossly appears normal in size. The interatrial septum grossly appears intact with no obvious evidence for an atrial septal defect. Mitral Valve: There is mild mitral annular calcification. There is no mitral regurgitation noted. Aortic Valve: The aortic valve opens well. There is no aortic valve stenosis. No aortic regurgitation is present. Tricuspid Valve: The tricuspid valve is normal in structure and function. No tricuspid regurgitation. Pulmonary artery pressures cannot be estimated because of the lack of a measurable TR jet velocity. Pulmonic Valve: The pulmonic valve is normal in structure and function. There is no pulmonic valvular regurgitation. Great Vessels: The aortic root is normal size. The ascending aorta could not be visualized. The IVC is of normal diameter and collapses greater than 50% with a sniff. This suggests a low right atrial pressure of 3 mm Hg. Pericardium/ Pleura There is no pericardial effusion. There is no pleural effusion. MMode/2D Measurements & Calculations LVIDd: 4.0 cm LVOT diam: 2.1 cm LVIDs: 2.5 cm Ao root diam: 3.7 cm FS: 37.5 % IVSd: 0.80 cm LVPWd: 0.70 cm LV gary. diameter/BSA (cm/m^2): 2.2 LV sys. diameter/BSA (cm/m^2): 1.3 LA dimension: 3.1 cm TAPSE_phl: 2.0 cm Doppler Measurements & Calculations Ao V2 max: 118.0 cm/sec LVOT Max Bucky: 99.2 cm/sec Ao V2 mean: 77.6 cm/sec LV V1 max P.9 mmHg Ao max P.0 mmHg LV V1 VTI: 16.5 cm Ao mean P.0 mmHg VAN(I,D): 3.5 cm2 Ao V2 VTI: 16.1 cm VAN(V,D): 2.9 cm2 sev ratio: 1.0 VAN indexed to BSA (cm^2/m^2): 1.9 MV E max bucky: 55.7 cm/sec SV(LVOT): 57.1 ml MV A max bucky: 86.5 cm/sec MV E/A: 0.64 Med Peak E' Bucky: 7.1 cm/sec E/E' med: 7.9 Lat Peak E' Bucky: 12.2 cm/sec E/E' lat: 4.6 E/e' average: 6.2 MV dec time: 0.30 sec AV VR_phl: 0.84 MV P1/2t-pr_phl: 87.0 msec VAN(VTI)/BSA_phl: 1.9 Reading Physician:05:13 PM
[2022-01-10] MEDS: PIPERACILLIN/TAZO 3.375 GM in SODIUM CHLORIDE 0.9% 100 ML IV (17:49)
[2022-01-10] MEDS: AA 5 %/CALCIUM/LYTES/DEXT 20 % 2,000 ML with MULTIVITAMIN 10 ML, TRACE ELEMENTS 1 ML 83.792 ML IV (18:23)
[2022-01-10 20:03] LABS: Body Fluid Tot Nucleated Cells 106 /uL
[2022-01-10 20:10] LABS: Body Fluid Red Blood Cells < 1000 /uL
[2022-01-10 20:11] LABS: Body Fluid Appearance CLEAR; Body Fluid Clotted? NO CLOTS PRESENT; Body Fluid Color YELLOW
[2022-01-10] MEDS: PANTOPRAZOLE DR 40 MG TABLET PO (20:42)
[2022-01-10 21:03] LABS: Mononuclear WBC Body Fluid 96 %; Polynuclear WBC Body Fluid 4 %
[2022-01-10] MEDS: ACETAMINOPHEN 325 MG TABLET 650 MG PO (22:28)
[2022-01-11] VITALS (8 sets, daily range): BP systolic 83–154; BP diastolic 55–85; PULSE 56–139; RESP 16–24; TEMP 36.4–37.8; O2SAT 97–99
[2022-01-11] MEDS: PIPERACILLIN/TAZO 3.375 GM in SODIUM CHLORIDE 0.9% 100 ML IV ×3 (01:10→17:37)
[2022-01-11] MEDS: ONDANSETRON 4 MG/2 ML INJ IV (01:10)
[2022-01-11] MEDS: LORazepam 2 MG/ML INJ 0.5 MG IV (04:11)
--- NOTE | 2022-01-11 08:30 | P.PN_ITS ---
Exam Vital Signs (past 8 hours): - 01/11/22 04:42 01/11/22 06:00 Temperature 99.2 F Pulse Rate 99 H 96 H Respiratory Rate 16 24 Blood Pressure 95/60 Pulse Oximetry 99 Oxygen Delivery Method Room Air Narrative Exam Narrative: General:?Acute on chronically ill appearing male, currently wretching HEENT:? Normocephalic, atraumatic, extraocular muscles intact, oral pharynx is clear and mucous membranes are dry. Neck: supple and symmetric, trachea is midline, no cervical adenopathy. Negative for JVD Chest:? Normal AP diameter and contour without kyphoscoliosis, no tachypnea, equal chest rise bilaterally. Lungs:? right lower lobe decreased breath sounds with mild rales, no wheezing. Cardio:?tachcyardia with regular rhythm, no m/r/g. Abdomen: S NT ND. Musculoskeletal:? Muscle strength and tone are equal within normal limits, no deformity. Extremities: No edema or joint effusions. No cyanosis or clubbing. Skin:? Pale,? Warm to touch, erythematous macular to maculopapular rash diffusely throughout his body. Neuro:? Alert and orientated x3,? sensation to touch intact in all extremities, no gross deficits noted of cranial nerves. Psych:? Patient has a well-kept appearance, appropriate affect, mental status attitude thought context and judgment are appropriate for age. Objective Labs Result Diagrams: 01/11/22 08:45 01/11/22 08:45 Labs: Laboratory Results - last 24 hr 01/10/22 01/10/22 01/10/22 08:40 08:50 08:50 WBC 4.1 L RBC 3.24 L Hgb 9.8 L Hct 29.5 L MCV 90.9 MCH 30.3 MCHC 33.4 RDW 16.2 H Plt Count 156 Neut % (Auto) 61.8 Lymph % (Auto) 14.1 L [place] % (Auto) 15.7 H Eos % (Auto) 7.4 H Baso % (Auto) 1.0 Neut # (Auto) 2500 Lymph # (Auto) 600 L [place] # (Auto) 600 Eos # (Auto) 300 Baso # (Auto) 0 Sodium Potassium Chloride Carbon Dioxide BUN Creatinine Estimated GFR BUN/Creatinine Ratio Glucose Lactate 1.8 Calcium Magnesium Total Bilirubin AST ALT Alkaline Phosphatase Total Protein Albumin Globulin Albumin/Globulin Ratio Procalcitonin Urine Color Yellow Urine Appearance Clear Urine pH 5.0 Ur Specific [place] 1.010 Urine Protein Trace H Urine Glucose (UA) Negative Urine Ketones Negative Urine Occult Blood Negative Urine Nitrate Negative Urine Bilirubin Negative Urine Urobilinogen 0.2 Ur Leukocyte Esterase Negative Urine RBC None seen Urine WBC None seen Urine Bacteria None seen Ur Culture Indicated? Cult not indicated Micro UA Comment Microscopic normal Fluid Color Fluid Appearance Fluid RBC Fld Tot Nucleated Cell Fluid Polynuclear WBCs Fluid Mononuclear WBCs Fluid Eosinophils Fluid Other Cells Body Fluid Clot 01/10/22 01/10/22 01/10/22 08:50 08:50 10:30 WBC RBC Hgb Hct MCV MCH MCHC RDW Plt Count Neut % (Auto) Lymph % (Auto) [place] % (Auto) Eos % (Auto) Baso % (Auto) Neut # (Auto) Lymph # (Auto) [place] # (Auto) Eos # (Auto) Baso # (Auto) Sodium 133 L Potassium 4.3 Chloride 103 Carbon Dioxide 22 BUN 55 H Creatinine 1.32 H Estimated GFR 55 L BUN/Creatinine Ratio 41.7 H Glucose 158 H Lactate Calcium 7.9 L Magnesium 2.2 Total Bilirubin 0.6 AST 28 ALT 30 Alkaline Phosphatase 155 H Total Protein 5.0 L Albumin 2.3 L Globulin 2.7 Albumin/Globulin Ratio 0.9 L Procalcitonin 0.36 Urine Color Urine Appearance Urine pH Ur Specific [place] Urine Protein Urine Glucose (UA) Urine Ketones Urine Occult Blood Urine Nitrate Urine Bilirubin Urine Urobilinogen Ur Leukocyte Esterase Urine RBC Urine WBC Urine Bacteria Ur Culture Indicated? Micro UA Comment Fluid Color Yellow Fluid Appearance Clear Fluid RBC < 1000 Fld Tot Nucleated Cell 106 Fluid Polynuclear WBCs 4 Fluid Mononuclear WBCs 96 Fluid Eosinophils Not Reportable Fluid Other Cells Not Reportable Body Fluid Clot No clots present REPLACED BY [facility] Medical History Chicken pox Chronic back pain Depression Eczema Hearing loss Hyperlipidemia Iron (Fe) deficiency anemia Low testosterone Measles Mumps Shoulder pain Vitamin D deficiency Surgical History Anesthesia History of cataract removal with insertion of prosthetic lens (~09/2019) Undescended right testicle (~1960) [place] teeth extracted (~1979) Family History Father Hypertension Grandfather History of heart disease Grandmother Flu Social History household members: spouse Smoking Status: Former smoker alcohol intake: former Assessment & Plan Assessment & Plan narrative: 1. Acute respiratory failure with hypoxia, dyspnea on exertion, R pleural effusion - s/p thoracentesis in the ER, ordered cell count and culture and cytology. Etiologies most likely include bacterial infectious / parapneumonic effusion, malignant effusion, or heart failure. - given proBNP elevation, dyspnea on exertion, and LE edema ordered echo to evaluate for possible heart failure as a cause, hold lasix at this time given soft BP. - possibly infectious in etiology, though fluid at bedside appeared clear and yellow, fluid studies ordered. Procal only 0.36. - continue zosyn for now for possible sepsis 2. Possible sepsis with acute respiratory failure and AKU - febrile in the ER, received IV fluids and antibiotics. Blood cultures drawn and pending. SOFA score would be 2. - he has recent history of klebsiella bacteremia presumably due to biliary source with multiple biliary stents still in place. His labs are reassuring with a normal bilirubin. Hepatic fluid collection appears to be improving when reviewing previous imaging reports and is felt less likely to be infectious at this time. - patient also received COVID and flu shot on 01/08 and may be the cause of his fever in the ER. - possibly fluid in R lung is infectious so will continue zosyn for now. - port site on exam appears unremarkable, rash predates current symptoms and likely due to chemotherapy. - blood cultures negative at 24hrs, sputum neg aerobic and anaerobic pending, UA negative. Can possibly stop antibiotics in one more day. 3. 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 - no acute management at this time. - continue PPI, symptom relief for gastric outlet obstruction. - discussion had about goals of care given patient very uncomfortable appearing with diffuse rash from chemo, NV of gastric contents due to GI malignancy, and patient on TPN. They are interested in hospice however not sure about stopping TPN at this point. Curious about palliative care as outpatient. Discussion will be ongoing. 4. Acute on chronic severe protein calorie malnutrition on TPN due to gastric outlet obstruction. - continue home TPN per pharmacy. Gets lipids on Mon, Mon, Sun. [facility] per spouse. - nutrition consultation. - increases patient's risk for complications while admitted to the hospital, and increases complexity of medical care. 5. Mild hyponatremia - suspect secondary to dehydration, continue NS for now until resuming TPN. 6. KAROLINA - suspect due to dehydration, possible sepsis. - continue IV fluids for now and follow creatinine. I have utilized all available immediate resources to obtain, update, or review the patient's current medications. Code: DNR, surrogate patient's spouse DVT: Lovenox Dispo: Pending culture results and hospice discussions. COVID-19 COVID-19 status: Negative Time Spent With Patient Critical Care time: I spent a total of [] minutes of critical care time on this patient's care today; this time is exclusive of procedural time. Quality VTE Deep Vein Thrombosis/Pulmonary Embolism Present on Admission: No
--- NOTE | 2022-01-11 08:44 | CM.DPC ---
Addendum entered by Sepideh Butts R.N. 01/11/22 14:07: DCP Cont: Pt spoke with Dr. Osorio this afternoon and it was decided that pt and have agreed to have a hospice referral. DCP to send referral to hospice. Referral faxed and DCP spoke with Ch[facility] and she took intake information. Hospice to reach out to for intake visit once referral received. DCP spoke with Malka Gu and informed her of the decision and she will coordinate cancelling his new appointment. DCP attempted to meet with pt this afternoon but not in the room. Will have DCP get in touch with her tomorrow. DCP to continue to follow case. Sepideh Butts RN/SOSA Addendum entered by Sepideh Butts R.N. 01/11/22 10:45: Received message from Malka Gu and it was verbalized that she spoke with pt today and have set up an appointment with Dr. Luna for 01/24. Will verbalize to the team. Sepideh Butts RN/SOSA Original Note: DCP Cont: DCP met with pt and pt this morning to discuss any needs and answer any questions. Charlee, pt , states that they have had one visit down at [facility] and are hoping to get set up with [facility] here in [place]. DCP verbalized that Harmony, our ER SW, talked with Malka Gu and asking for her assistance in helping transfer of care. Pt and thankful for discussion and want to be involved in decision making. White board updated and provided contact information to Charlee. Pt and pt thankful for discussion. P: Unclear needs at this time. Awaiting further plan from team. DCP to continue working with team and help with any coordination of care. Sepideh Butts RN/JALENP
[2022-01-11 08:54] LABS: Add Manual Diff / Slide Review NO; Basophils Absolute Auto 0 /uL (0-100); Basophils Percent Auto 1.1 % (0-2); Eosinophils Absolute Auto 400 /uL (0-450); Eosinophils Percent Auto 11.7 % (2-4); Hematocrit 29.9 % (41-53); Hemoglobin 9.9 g/dL (13.5-17.5); Lymphocytes Absolute Auto 700 /uL (1100-4500); Lymphocytes Percent Auto 19.3 % (25-40); Mean Corpuscular HGB Conc 33.3 % (30-36); Mean Corpuscular Hemoglobin 30.2 PG (26-34); Mean Corpuscular Volume 90.6 fL (80-100); Monocytes Absolute Auto 700 /uL (0-900); Monocytes Percent Auto 20.8 % (3-14); Neutrophils Absolute Auto 1600 /uL (1500-7000); Neutrophils Percent Auto 47.1 % (50-75); Platelet Count 185 X10^3/uL (150-400); Red Cell Distribution Width 16.6 % (11.6-14.8); White Blood Cell Count 3.4 X10^3/uL (4.5-11.0)
[2022-01-11 09:06] LABS: Alanine Aminotransferase 33 IU/L (<50); Albumin 2.1 g/dL (3.5-5.0); Albumin Globulin Ratio 0.7 (1.0-2.8); Alkaline Phosphatase 136 U/L (38-126); Aspartate Aminotransferase 28 IU/L (17-59); BUN Creatinine Ratio 36.6 (6-22); Bilirubin Total 0.6 mg/dL (0.2-1.3); Blood Urea Nitrogen 68 mg/dL (9-20); Calcium 8.2 mg/dL (8.4-10.2); Carbon Dioxide 21 mmol/L (22-32); Chloride 104 mmol/L (98-107); Estimated Glomerular Filt Rate 37 mL/min (>60); Globulin 2.9 g/dL (1.7-4.1); Glucose 186 mg/dL (80-110); HEMOLYSIS < 15 (0-50); Potassium 4.2 mmol/L (3.4-5.1); Sodium 133 mmol/L (137-145)
[2022-01-11] MEDS: SODIUM CHLORIDE 0.9% 1,000 ML 100 ML IV ×2 (10:45→21:28)
--- NOTE | 2022-01-11 11:22 | DIET.CONS2 ---
Dietary Inpatient Consultation Note Admission Date: 01/10/2022 08:53 Pt tolerating TPN with electrolytes WNL. Pt's renal fxn worsening, if continues, consider reducing TPN as pt currently receiving 1.5g/kg PRO over 24h. Diet: 01/11/22 09:35 NPO Diet Diet Modifications: NPO Type: NPO on TPN Nutrition Percent Meal Consumed TPN 01/10/22 18:57 Electronically Signed by: Catherine Palacios 01/11/22 11:22 Clinical Dietitian [address] [address]
--- NOTE | 2022-01-11 11:26 | PC.NURSE ---
Addendum entered by Dalton Quiroz R.N. 01/11/22 14:25: at bedside speaking with Dr. Osorio about hospice care. see Dr's notes. Care management aware. Original Note: Pt awake and responsive to questions, conversant. Up to BSC. attentive at the bedside. TPN NS and Abx per orders. Pt NPO presently.
[2022-01-11] MEDS: AA 5 %/CALCIUM/LYTES/DEXT 20 % 2,000 ML with MULTIVITAMIN 10 ML, TRACE ELEMENTS 1 ML 83.792 ML IV (17:36)
[2022-01-11] MEDS: PANTOPRAZOLE 40 MG VIAL IV (20:59)
[2022-01-11] MEDS: LORazepam 2 MG/ML INJ 1 MG IV (21:28)
[2022-01-12] VITALS: BP 97/51; PULSE 135; RESP 17; TEMP 37.1; O2SAT 99
[2022-01-12] MEDS: PIPERACILLIN/TAZO 3.375 GM in SODIUM CHLORIDE 0.9% 100 ML IV (00:44)
[2022-01-12 06:00] VITALS: BP 115/67; PULSE 82; RESP 19; RESP 26; TEMP 36.8; O2SAT 98
[2022-01-12 06:14] LABS: BUN Creatinine Ratio 35.8 (6-22); Blood Urea Nitrogen 57 mg/dL (9-20); Calcium 7.8 mg/dL (8.4-10.2); Carbon Dioxide 20 mmol/L (22-32); Chloride 109 mmol/L (98-107); Estimated Glomerular Filt Rate 44 mL/min (>60); Glucose 168 mg/dL (80-110); HEMOLYSIS < 15 (0-50); Potassium 3.6 mmol/L (3.4-5.1); Sodium 137 mmol/L (137-145)
[2022-01-12 07:11] LABS: Add Manual Diff / Slide Review NO; Basophils Absolute Auto 0 /uL (0-100); Basophils Percent Auto 0.7 % (0-2); Eosinophils Absolute Auto 400 /uL (0-450); Eosinophils Percent Auto 8.9 % (2-4); Hematocrit 28.4 % (41-53); Hemoglobin 9.6 g/dL (13.5-17.5); Lymphocytes Absolute Auto 700 /uL (1100-4500); Lymphocytes Percent Auto 16.4 % (25-40); Mean Corpuscular HGB Conc 33.7 % (30-36); Mean Corpuscular Hemoglobin 30.2 PG (26-34); Mean Corpuscular Volume 89.5 fL (80-100); Monocytes Absolute Auto 900 /uL (0-900); Neutrophils Absolute Auto 2300 /uL (1500-7000); Platelet Count 170 X10^3/uL (150-400); Red Blood Cell Count 3.18 X10^6/uL (4.5-5.9); Red Cell Distribution Width 16.3 % (11.6-14.8); White Blood Cell Count 4.4 X10^3/uL (4.5-11.0)
--- NOTE | 2022-01-12 08:48 | PM.PN.1 ---
Subjective Subjective Date Patient Seen: 01/12/22 Interval history: Patient feeling better today. Discussion was had about hospice and patient is mulling this over with his . Exam Vital Signs (past 8 hours): - 01/12/22 06:00 01/12/22 06:00 Temperature 98.3 F Pulse Rate 82 Respiratory Rate 19 26 H Blood Pressure 115/67 Pulse Oximetry 98 98 Oxygen Delivery Method Room Air Oxygen Flow Rate 0 Narrative Exam Narrative: General:?Acute on chronically ill appearing male, more awake and alert today. at bedside. HEENT:? Normocephalic, atraumatic, extraocular muscles intact, oral pharynx is clear and mucous membranes are dry. Neck: supple and symmetric, trachea is midline, no cervical adenopathy. Negative for JVD Chest:? Normal AP diameter and contour without kyphoscoliosis, no tachypnea, equal chest rise bilaterally. Lungs:? right lower lobe decreased breath sounds with mild rales, no wheezing. Cardio:?tachcyardia with regular rhythm, no m/r/g. Abdomen: S NT ND. Musculoskeletal:? Muscle strength and tone are equal within normal limits, no deformity. Extremities: No edema or joint effusions. No cyanosis or clubbing. Skin:? Pale,? Warm to touch, erythematous macular to maculopapular rash diffusely throughout his body. Neuro:? Alert and orientated x3,? sensation to touch intact in all extremities, no gross deficits noted of cranial nerves. Psych:? Patient has a well-kept appearance, appropriate affect, mental status attitude thought context and judgment are appropriate for age. Objective Labs Result Diagrams: 01/12/22 05:45 01/12/22 05:45 Labs: Laboratory Results - last 24 hr 01/11/22 01/11/22 01/12/22 08:45 08:45 05:45 WBC 3.4 L 4.4 L RBC 3.30 L 3.18 L Hgb 9.9 L 9.6 L Hct 29.9 L 28.4 L MCV 90.6 89.5 MCH 30.2 30.2 MCHC 33.3 33.7 RDW 16.6 H 16.3 H Plt Count 185 170 Neut % (Auto) 47.1 L 53.0 Lymph % (Auto) 19.3 L 16.4 L [place] % (Auto) 20.8 H 21.0 H Eos % (Auto) 11.7 H 8.9 H Baso % (Auto) 1.1 0.7 Neut # (Auto) 1600 2300 Lymph # (Auto) 700 L 700 L [place] # (Auto) 700 900 Eos # (Auto) 400 400 Baso # (Auto) 0 0 Sodium 133 L Potassium 4.2 Chloride 104 Carbon Dioxide 21 L BUN 68 H Creatinine 1.86 H Estimated GFR 37 L BUN/Creatinine Ratio 36.6 H Glucose 186 H Calcium 8.2 L Total Bilirubin 0.6 AST 28 ALT 33 Alkaline Phosphatase 136 H Total Protein 5.0 L Albumin 2.1 L Globulin 2.9 Albumin/Globulin Ratio 0.7 L 01/12/22 05:45 WBC RBC Hgb Hct MCV MCH MCHC RDW Plt Count Neut % (Auto) Lymph % (Auto) [place] % (Auto) Eos % (Auto) Baso % (Auto) Neut # (Auto) Lymph # (Auto) [place] # (Auto) Eos # (Auto) Baso # (Auto) Sodium 137 Potassium 3.6 Chloride 109 H Carbon Dioxide 20 L BUN 57 H Creatinine 1.59 H Estimated GFR 44 L BUN/Creatinine Ratio 35.8 H Glucose 168 H Calcium 7.8 L Total Bilirubin AST ALT Alkaline Phosphatase Total Protein Albumin Globulin Albumin/Globulin Ratio [facility] Medical History Chicken pox Chronic back pain Depression Eczema Hearing loss Hyperlipidemia Iron (Fe) deficiency anemia Low testosterone Measles Mumps Shoulder pain Vitamin D deficiency Surgical History Anesthesia History of cataract removal with insertion of prosthetic lens (~09/2019) Undescended right testicle (~1960) [place] teeth extracted (~1979) Family History Father Hypertension Grandfather History of heart disease Grandmother Flu Social History household members: spouse Smoking Status: Former smoker alcohol intake: former Assessment & Plan Assessment & Plan narrative: 1. Acute respiratory failure with hypoxia, dyspnea on exertion, R pleural effusion, resolved - s/p thoracentesis in the ER, ordered cell count and culture and cytology. Etiologies most likely include bacterial infectious / parapneumonic effusion, malignant effusion, or heart failure. - given proBNP elevation, dyspnea on exertion, and LE edema ordered echo to evaluate for possible heart failure as a cause, hold lasix at this time given soft BP. - possibly infectious in etiology, though fluid at bedside appeared clear and yellow, fluid studies ordered. Procal only 0.36. - now on room air 2. Possible sepsis with acute respiratory failure and AKU - febrile in the ER, received IV fluids and antibiotics. Blood cultures drawn and pending. SOFA score would be 2. - he has recent history of klebsiella bacteremia presumably due to biliary source with multiple biliary stents still in place. His labs are reassuring with a normal bilirubin. Hepatic fluid collection appears to be improving when reviewing previous imaging reports and is felt less likely to be infectious at this time. - patient also received COVID and flu shot on 01/08 and may be the cause of his fever in the ER. - possibly fluid in R lung is infectious so will continue zosyn for now. - port site on exam appears unremarkable, rash predates current symptoms and likely due to chemotherapy. - blood cultures negative at 24hrs, sputum neg aerobic and anaerobic negative, pleural fluid culture neg - stop abx 3. 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 - no acute management at this time. - continue PPI, symptom relief for gastric outlet obstruction. - further discussion was held about patient qualifying for hospice. They are interested and he states he would not want to do any more chemo. However with TPN running he likely would not be able to be on hospice with that. They are concerned that he would too quickly if he stops TPN and are potentially interested in feeding tube. [employer] spoke with hospice and they would be willing to have TPN continued for up to 2 weeks while patient decides on continuing with hospice or not. They would like [facility] until hospice can open. 4. Acute on chronic severe protein calorie malnutrition on TPN due to gastric outlet obstruction. - continue home TPN per pharmacy. Gets lipids on Wed, Mon, Sun. [facility]patient [facility] per spouse. - nutrition consultation. - increases patient's risk for complications while admitted to the hospital, and increases complexity of medical care. 5. Mild hyponatremia - suspect secondary to dehydration, continue NS for now until resuming TPN. 6. [place] - suspect due to dehydration, possible sepsis. - continue IV fluids for now and follow creatinine. I have utilized all available immediate resources to obtain, update, or review the patient's current medications. Code: DNR, surrogate patient's spouse DVT: Lovenox Dispo: Home with then hospice on 01/13. COVID-19 COVID-19 status: Negative Time Spent With Patient Critical Care time: I spent a total of [] minutes of critical care time on this patient's care today; this time is exclusive of procedural time. Quality VTE Deep Vein Thrombosis/Pulmonary Embolism Present on Admission: No
[2022-01-12 09:09] VITALS: BP 101/63; PULSE 98; RESP 14; TEMP 36.9; O2SAT 97
[2022-01-12] MEDS: CITALOPRAM 10 MG TABLET PO (10:38)
[2022-01-12] MEDS: SENNOSIDES 8.6 MG TABLET PO (10:38)
[2022-01-12] MEDS: PANTOPRAZOLE 40 MG VIAL IV ×2 (10:38→20:09)
[2022-01-12 12:00] VITALS: BP 95/58; PULSE 104; RESP 18; TEMP 36.9; O2SAT 98
--- NOTE | 2022-01-12 15:50 | CM.DPNOTE ---
DCP Note Discharge anticipated today or tomorrow; had thorough conversation w/patient's spouse at bedside today re hospice services vs HH and continuing vs stopping TPN Spouse shares that she and patient were hopeful continuing TPN would allow them additional time to finish business and spend time with family Per spouse's request- researched patient's hospice/[facility] options and learned that [facility] only take someone on to services if the TPN had a stop date ie one-two last weeks of TPN and then [facility] could assist patient and family stop artificial nutrition at home ...if TPN was ongoing, patient would not be accepted on to services Placed call to [facility] and they [place] spouse and Dr Osorio. Plan: Anticipate patient will discharge home w/spouse tomorrow w/resumption of [facility] for maintenance of TPN w/resumption (new order?) for HH services. Spouse has hospital bed through [facility]. Transport? CM team following closely to assist in the coordination of this DCP JW
[2022-01-12] MEDS: AA 5 %/CALCIUM/LYTES/DEXT 20 % 2,000 ML with MULTIVITAMIN 10 ML, TRACE ELEMENTS 1 ML 83.792 ML IV (17:43)
[2022-01-12] MEDS: FAT EMULSIONS 50 GM/250 ML EMULSION IV (17:43)
[2022-01-12 18:00] VITALS: BP 98/63; PULSE 104; RESP 18; TEMP 36.7; O2SAT 98
[2022-01-12] MEDS: HEPARIN 5,000 UNIT/ML VIAL 5000 UNIT SUBCUT (20:08)
[2022-01-12] MEDS: LORazepam 2 MG/ML INJ 1 MG IV (20:09)
[2022-01-13] VITALS: BP 101/55; PULSE 105; RESP 17; TEMP 37.4; O2SAT 96
[2022-01-13 06:00] VITALS: BP 107/51; PULSE 106; RESP 18; TEMP 37.4; O2SAT 96
[2022-01-13 07:40] LABS: Glucose 137 mg/dL (80-110); HEMOLYSIS < 15 (0-50)
[2022-01-13 07:49] LABS: BUN Creatinine Ratio 36.1 (6-22); Blood Urea Nitrogen 53 mg/dL (9-20); Calcium 8.1 mg/dL (8.4-10.2); Carbon Dioxide 20 mmol/L (22-32); Chloride 110 mmol/L (98-107); Estimated Glomerular Filt Rate 49 mL/min (>60); Potassium 3.8 mmol/L (3.4-5.1); Sodium 138 mmol/L (137-145)
[2022-01-13 08:06] LABS: Hematocrit 28.2 % (41-53); Hemoglobin 9.6 g/dL (13.5-17.5); Mean Corpuscular HGB Conc 34.1 % (30-36); Mean Corpuscular Hemoglobin 30.6 PG (26-34); Mean Corpuscular Volume 89.9 fL (80-100); Platelet Count 204 X10^3/uL (150-400); Red Blood Cell Count 3.14 X10^6/uL (4.5-5.9); Red Cell Distribution Width 16.8 % (11.6-14.8); White Blood Cell Count 6.2 X10^3/uL (4.5-11.0)
[2022-01-13 08:08] LABS: Add Manual Diff / Slide Review YES
--- NOTE | 2022-01-13 08:46 | CM.DPNOTE ---
Spoke to Kenny at Ambulance for BLS transport at 1400. Magdalena in patient's red folder. Mercedez Ramirez CM Assist.
[2022-01-13 08:51] VITALS: BP 107/51; PULSE 105
[2022-01-13] MEDS: MORPHINE 2 MG/ML INJ IV ×2 (08:53→14:56)
--- NOTE | 2022-01-13 09:04 | CM.DPC ---
Addendum entered by Sepideh Butts R.N. 01/13/22 15:12: Provided pt spouse with caregiving resources and spoke to her about needing to find more help for at home support while in the process of setting up hospice. Pt spouse states that her sister and brother in law are at the house now waiting for their arrival. Spoke about the importance of having them stay overnight with her due to the pt fast deteriorating status. Pt spouse verbalized understanding. Pt given hospice contact information and to contact if she does not hear from them by tomorrow. BLS is to get here at 1500. Pt spouse thankful for discussion. Sepideh Butts RN/JALENP Original Note: DCP Cont: Per MD, pt is ready for discharge. DCP spoke with pt and pt this morning to update them on the discharge plan. Per pt, he feels that he is not strong enough to get into the car and is requesting ambulance transport. DCP to set that up. *[facility] transport set up for 1400 today. DCP also spoke about resumption of care with TPN and [facility]. Pt in agreement with the plan. DCP spoke with Effie @ Hospice and provided her with an update. Effie to reach out to family this afternoon once they arrive back home to discuss details about care. Clinicals to be faxed once available. DCP spoke with Guero @ [facility] and he is aware of plan for resumption of care. DCP spoke with [facility] and they are requesting clinicals for resumption of care for pt TPN. Those will be faxed over once available. No other resources needed at this time. DCP will be available prior to discharge in the event that other concerns arise. Sepideh Butts RN/SOSA
--- NOTE | 2022-01-13 09:12 | PM.DS.1 ---
History of Present Illness History of Present Illness Date Patient Seen: 01/13/22 Time Patient Seen: 11:15 Chief complaint: SOB Narrative: 76 M with PMH of Stage IV signet ring adenocarcinoma, with gastric outlet obstruction and multiple biliary stenting procedures for obstruction with klebsiella bacteremia off of outpatient IV antibiotics about 10 days ago, follows at , with malnutrition on TPN due to gastric outlet obstruction from his malignancy currently on palliative chemotherapy who presents with worsening dyspnea on exertion. He denies orthopnea , lower extremity edema, chest pain, pleuritic pain, palpitations. He did receive his flu and COVID combined booster two days ago (01/08). He feels generally weak. He denies subjective fever and chills. He does have a rash but this started after chemo. He has persistent nausea and vomiting with his outlet obstruction with some mild worsening over the past couple of days. He is able to tolerate small sips and medications. In the emergency room, he had low grade fever to 100.5, started on antibiotics. CT imaging was negative for PE, but did show R small pleural effusion for which thoracentesis was ordered. By the time of my evaluation, he had 1L of fluid taken off (light / clear yellow visible in ER container) with no reports of dyspnea but he had not attempted to walk yet. He did desaturate with ambulation to 81% in the ER. He was mildly tachycardic as well and BP were soft. Labs were notable for mild leukopenia, chronic and stable anemia from previous evaluations and comparable to prior documentation from [facility]. Creatine was elevated at 1.32, bilirubin was normal, troponin was within normal limits, mild elevation in proBNP at 492, procalcitonin was 0.36. UA negative for infection. Respiratory panel negative. CT chest as noted above, abdominal CT showed There is a 7.8 x 5.8 x 6.8 cm fluid collection along the lateral aspect of the hepatic capsule under the right hemidiaphragm. 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 Discharge Providers Provider Date of admission: 01/10/22 08:53 Discharge Date: 01/13/22 Primary care physician: Eddie Ba MD Consults: 01/10/22 09:26 Consult to Discharge Planning Routine Comment: 01/10/22 09:29 Consult to CODING ADVISOR - Donkey Ride Operator Routine Comment: IV stage adenocarcinoma, expect 3-6 months,see onc CODING ADVISOR Consult needed for:: End of Life/Goal Care Dis 01/10/22 21:17 Consult to Wound Care Routine Comment: open wound to coccyx-new Consulting Provider: [facility] 01/13/22 09:03 Consult to Home Health Routine Comment: RN, Aide, Design Manager, Reason For Exam: Resumption of care Discharge provider: Aristides Osorio, Summary Hospital Course Discharge Diagnosis: 1. Acute respiratory failure with hypoxia, dyspnea on exertion, R pleural effusion, resolved ?- s/p thoracentesis in the ER, ordered cell count and culture and cytology. Etiologies most likely include bacterial infectious / parapneumonic effusion, malignant effusion, or heart failure. ?- given proBNP elevation, dyspnea on exertion, and LE edema ordered echo to evaluate for possible heart failure as a cause, hold lasix at this time given soft BP. ?- possibly infectious in etiology, though fluid at bedside appeared clear and yellow, fluid studies ordered. Procal only 0.36. ?- now on room air 2. Possible sepsis with acute respiratory failure and AKU ?- febrile in the ER, received IV fluids and antibiotics. Blood cultures drawn and pending. SOFA score would be 2. ?- he has recent history of klebsiella bacteremia presumably due to biliary source with multiple biliary stents still in place. His labs are reassuring with a normal bilirubin. Hepatic fluid collection appears to be improving when reviewing previous imaging reports and is felt less likely to be infectious at this time. ?- patient also received COVID and flu shot on 01/08 and may be the cause of his fever in the ER. ?- possibly fluid in R lung is infectious so will continue zosyn for now. ?- port site on exam appears unremarkable, rash predates current symptoms and likely due to chemotherapy. ?- blood cultures negative at 24hrs, sputum neg aerobic and anaerobic negative, pleural fluid culture neg ?- stopped abx 3. 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 ?- no acute management at this time. ?- continue PPI, symptom relief for gastric outlet obstruction. ?- further discussion was held about patient qualifying for hospice. They are interested and he states he would not want to do any more chemo. However with TPN running he likely would not be able to be on hospice with that. They are concerned that he would too quickly if he stops TPN and are potentially interested in feeding tube. CODING ADVISOR spoke with hospice and they would be willing to have TPN continued for up to 2 weeks while patient decides on continuing with hospice or not. They would like [facility] until hospice can open. 4. Acute on chronic severe protein calorie malnutrition on TPN due to gastric outlet obstruction. ?- continued home TPN per pharmacy. Gets lipids on Mon, Mon, Mon. Outpatient TPN through [facility] per spouse. ?- nutrition consultation. ?- increases patient's risk for complications while admitted to the hospital, and increases complexity of medical care. -resume TPN through [facility] per previous orders on discharge 5. Mild hyponatremia ?- suspect secondary to dehydration, continue NS for now until resuming TPN. 6. KAROLINA ?- suspect due to dehydration, possible sepsis. ?- continue IV fluids for now and follow creatinine. Hospital Course: Admitted for dyspnea and fevers with concern for sepsis, however panculture was negative. Found to have right sided pleural effusion which was drained in the ED. Given IV abx for 2 days then stopped. [place] that fevers were most likely secondary to recent flu and COVID vaccines he received. His home TPN was continued during admission. GOC discussion was held and patient does not want to continue chemotherapy and is interested in hospice, however not sure if he is ready to stop TPN which would greatly accelerate his passing. His home TPN was continued through [facility] per previous orders. was setup to help at home until hospice can open and he will have up to 2 weeks to decide if he wants to continue hospice and stop TPN or stop hospice and continue TPN. Given prescriptions for SL morphine, ativan and phenergan at home to bridge until hospice opens. Time Spent with Patient Time spent: Greater than 30 minutes Exam Vital Signs (past 8 hours): - 01/13/22 06:00 01/13/22 08:51 Temperature 99.3 F Pulse Rate 106 H 105 H Respiratory Rate 18 Blood Pressure 107/51 L 107/51 L Pulse Oximetry 96 Oxygen Flow Rate 0 Oxygen Delivery Method Room Air Oxygen Flow Rate 0 Narrative Exam Narrative: General:?Acute on chronically ill appearing male, more awake and alert today. at bedside. HEENT:? Normocephalic, atraumatic, extraocular muscles intact, oral pharynx is clear and mucous membranes are dry. Neck: supple and symmetric, trachea is midline, no cervical adenopathy. Negative for JVD Chest:? Normal AP diameter and contour without kyphoscoliosis, no tachypnea, equal chest rise bilaterally. Lungs:? right lower lobe decreased breath sounds with mild rales, no wheezing. Cardio:?tachcyardia with regular rhythm, no m/r/g. Abdomen: S NT ND. Musculoskeletal:? Muscle strength and tone are equal within normal limits, no deformity. Extremities: No edema or joint effusions. No cyanosis or clubbing. Skin:? Pale,? Warm to touch, erythematous macular to maculopapular rash diffusely throughout his body. Neuro:? Alert and orientated x3,? sensation to touch intact in all extremities, no gross deficits noted of cranial nerves. Psych:? Patient has a well-kept appearance, appropriate affect, mental status attitude thought context and judgment are appropriate for age. Objective Labs Result Diagrams: 01/13/22 07:01 01/13/22 07:01 Labs: Laboratory Results - last 24 hr 01/13/22 01/13/22 07:01 07:01 WBC 6.2 RBC 3.14 L Hgb 9.6 L Hct 28.2 L MCV 89.9 MCH 30.6 MCHC 34.1 RDW 16.8 H Plt Count 204 Neut % (Auto) Not Reportable Lymph % (Auto) Not Reportable [place] % (Auto) Not Reportable Eos % (Auto) Not Reportable Baso % (Auto) Not Reportable Lymph # (Auto) Not Reportable [place] # (Auto) Not Reportable Baso # (Auto) Not Reportable Sodium 138 Potassium 3.8 Chloride 110 H Carbon Dioxide 20 L BUN 53 H Creatinine 1.47 H Estimated GFR 49 L BUN/Creatinine Ratio 36.1 H Glucose 137 H Calcium 8.1 L PFSH Medical History Chicken pox Chronic back pain Depression Eczema Hearing loss Hyperlipidemia Iron (Fe) deficiency anemia Low testosterone Measles Mumps Shoulder pain Vitamin D deficiency Surgical History Anesthesia History of cataract removal with insertion of prosthetic lens (~09/2019) Undescended right testicle (~1960) Ironside teeth extracted (~1979) Family History Father Hypertension Grandfather History of heart disease Grandmother Flu Social History household members: spouse Smoking Status: Former smoker alcohol intake: former Discharge Plan Discharge Plan Patient Disposition: Home Health Service Provider Discharge Comment: You were admitted for fevers and concern for infection so were put on antibiotics. All cultures came back negative so antibiotics were stopped, and the culprit was likely due to the COVID and flu vaccines you had received a couple of days prior. We arranged home health and hospice to come to your home for ongoing care. I've sent morphine, ativan and phenergan for nausea to your pharmacy to use until hospice can open. Discharge orders & Medications Prescriptions: New promethazine 6.25 mg/5 mL syrup 12.5 mg PO Q4-6H PRN (Reason: nausea and vomiting) Qty: 473 0RF morphine 10 mg/5 mL solution 5 mg PO Q6H PRN (Reason: pain) Qty: 100 0RF lorazepam 2 mg/mL syringe 1 mg sublingual Q6H PRN (Reason: anxiety) Qty: 10 0RF Continued citalopram 10 mg tablet 10 mg PO DAILY Qty: 90 1RF ondansetron 8 mg tablet,disintegrating 8 mg PO Q4H PRN (Reason: nasuea or vomiting) pantoprazole 40 mg tablet,delayed release (DR/EC) 40 mg PO BID Label Comments: TAKE ONE TABLET BY MOUTH TWICE DAILY Follow up/Referrals: Eddie Ba MD [Primary Care Provider] - 01/28/22 4:30 pm (Appt:01/28 @ 4:30 with please arrive 15 minutes prior to scheduled appoointment time ) Discharge Data Primary Care Provider: Eddie Ba Quality VTE Deep Vein Thrombosis/Pulmonary Embolism Present on Admission: No
[2022-01-13 09:19] LABS: Anisocytosis 1+; Neutrophils Absolute Manual 3348 /uL (3000-5900); Total Cells Counted 100
[2022-01-13 09:20] LABS: Poikilocytosis 1+
[2022-01-13 10:30] VITALS: PULSE 117; RESP 16; TEMP 37.3; O2SAT 99
--- NOTE | 2022-01-13 13:03 | ONC.MSW ---
T/C-, Charlee Activity: This AUTO PORTER received a message from [facility] in care management that pt will not be going on to hospice services as previously planned, and needed to be re-scheduled here in Oncology for the 01/24 new pt time. That time still happened to be open, put pt back on the schedule for 01/24 at 2:20pm, 2:00 check-in time, called and left her a message with this information.
== END 2022-01-13 15:17 | disposition home health service (06) | DRG 871 ==
LOC: ED 01-10 08:45 → AC 01-10 08:54
PROVIDERS: Internal Medicine; Student in an Organized Health Care Education/Training Program; Admitting Provider Nurse Practitioner Family; Emergency Provider Emergency Medicine; PCP Family Medicine; Referring Provider Emergency Medicine; Visit Provider Nurse Practitioner Family
DX: A41.9 Sepsis, unspecified organism (principal); E43 Unspecified severe protein-calorie malnutrition; J96.01 Acute respiratory failure with hypoxia; J90 Pleural effusion, not elsewhere classified; E87.1 Hypo-osmolality and hyponatremia; N17.9 Acute kidney failure, unspecified; C16.9 Malignant neoplasm of stomach, unspecified; K31.1 Adult hypertrophic pyloric stenosis; R65.20 Severe sepsis without septic shock; F32.A Depression, unspecified; Z20.822 Contact with and (suspected) exposure to COVID-19; Z66 Do not resuscitate; Z87.891 Personal history of nicotine dependence; Z68.20 Body mass index [BMI] 20.0-20.9, adult
CPT/HCPCS: 32555; 36415; 36592; 71045; 71275; 74177; 80048; 80053; 81001; 82550; 83605; 83735; 83880; 84145; 84484; 85007; 85025; 85610; 85730; 87040; 87070; 87075; 87205; 87633; 89051; 93005; 93010; 93306; 96365; 96375; 99284; B4185; B4189; C9113; J1644; J1885; J1940; J2060; J2270; J2405; J2543; J2765; Q9967